=== PATIENT | male | born 1950 | race Caucasian/White ===

== ENCOUNTER 2017-04-30 13:54 | Emergency (ER) | payer MEDICARE ==
[~2017-04-30] VITALS: Ht 172.7 cm; Wt 88.0 kg
[2017-04-30 14:03] VITALS: Ht 172.7 cm; Wt 88.0 kg
[2017-04-30 17:46] LABS: ADD SCAN DIFF NO
[2017-04-30 17:49] LABS: BASOPHILS % 0.1 % (0.0-2.0); HEMATOCRIT 44.1 % (42.0-52.0); HEMOGLOBIN 15.6 g/dl (14.0-18.0); LYMPHOCYTES # 1.2 10^3/ul (0.8-2.9); MEAN CORPUSCULAR HEMOGLOBIN 30.8 pg (29.0-33.0); MEAN CORPUSCULAR HGB CONC 35.4 g/dl (32.0-37.0); MEAN CORPUSCULAR VOLUME 87.2 fl (82.0-101.0); MEAN PLATELET VOLUME 11.8 fl (7.4-10.4); MONOCYTE # 1.3 10^3/ul (0.3-0.9); MONOCYTES % 7.2 % (0.0-11.0); NEUTROPHIL # 14.8 10^3/ul (1.6-7.5); NEUTROPHILS % 84.9 % (39.0-77.0); PLATELET COUNT 109 10^3/UL (140-415); RED BLOOD COUNT 5.06 10^6/ul (4.70-6.10); RED CELL DISTRIBUTION WIDTH 12.5 % (11.5-14.5); WHITE BLOOD COUNT 17.4 10^3/ul (4.8-10.8)
--- NOTE | 2017-04-30 17:58 | RADRPT ---
PROCEDURE: CT brain without contrast CLINICAL INDICATION: Headaches TECHNIQUE: CT of the brain without contrast performed on a multidetector CT scanner, with multiplan ar reformats. One or more of the following dose reduction techniques were used: Automated exposure control, adjustment in mA and / or kV according to patient size, use of iterative reconstructive rubi hnique. CTDIvol = 44 mGy; DLP = 720 mGy-cm. COMPARISON: None available FINDINGS: No acute intracranial hemorrhage is identified. No extra-axial fluid collection is seen. There is no mass effect. No midline shift is identified. Ventricles - sulci are mildly enlarged compatible with generalized volume loss. The density of the brain is unremarkable. Richey-white differentiation is preserved. Atherosclerotic calcifications of the intracranial internal carotid arteries are noted. Osseous structures are unremarkable. There is mild left frontal scalp swelling or thickening with o verlying material noted. Left partial sphenoid sinus opacification is seen. IMPRESSION: 1. No evidence of acute intracranial pathology. 2. Mild generalized volume loss. 3. Mild left frontal scalp swelling/thickening. 4. Paranasal sinus disease described above. RPTAT: AA .Gaston Miller MD, MD Date Time Electronically viewed and signed by .Gaston Miller MD, MD on 04/30/2017 17:58 .O/
[2017-04-30 18:03] LABS: PARTIAL THROMBOPLASTIN TIME 24.1 Sec (25.0-35.0)
--- NOTE | 2017-04-30 18:07 | RADRPT ---
PROCEDURE: CT cervical spine without contrast. CLINICAL INDICATION: Neck pain TECHNIQUE: CT of the cervical spine without contrast was performed on a multidetector CT scanner, w ith multiplanar reformats. One or more of the following dose reduction techniques were used: Automa jonel exposure control, adjustment in mA and / or kV according to patient size, use of iterative recon structive technique. CTDIvol = 20 mGy and DLP = 414 mGy-cm. COMPARISON: None available. FINDINGS: No fracture or dislocation is identified. There is straightening of the lordosis of the cervical sp ine. Alignment is intact. The vertebral bodies are maintained in height. Anterior spondylosis is seen at C4-5 through C6-7. There is disk space narrowing, mild - moderate C5-6, mild at C6-7. Ath erosclerotic calcifications and biapical post granulomatous changes are noted. C2-3: There is a mild posterior disk osteophyte. No central canal stenosis is identified. There i s facet arthropathy without foraminal narrowing identified. C3-4: There is a posterior disk/osteophyte. Mild central canal stenosis is identified. There are u ncovertebral osteophytes and facet arthropathy with moderate to severe right, mild-moderate left for aminal narrowing. C4-5: There is a mild posterior disk osteophyte. No central canal stenosis is identified. There ar e uncovertebral osteophytes and facet arthropathy with mild to moderate bilateral foraminal narrowin gThere are uncovertebral osteophytes and facet arthropathy with moderate to severe right foraminal n arrowing. C5-6: There is a posterior disk/osteophyte. Mild central canal stenosis is identified. There are u ncovertebral osteophytes and facet arthropathy with moderate - severe right foraminal narrowing. C6-7: There is a posterior disk/osteophyte. No central canal stenosis is identified. There are un covertebral osteophytes and facet arthropathy with moderate right, mild-moderate left foraminal narr owing. C7-T1: No central canal stenosis or foraminal narrowing is identified. IMPRESSION: 1. Straightening of the cervical lordosis, without fracture/dislocation identified. 2. Cervical spondylosis with mild central canal stenosis at C3-4 and C5-6, and multilevel foraminal narrowing detailed above. RPTAT: AA .Gaston Miller MD, MD Date Time Electronically viewed and signed by .Gaston Miller MD, on 04/30/2017 18:07 .O/
[2017-04-30 18:10] LABS: ALBUMIN 4.7 g/dl (3.3-4.9); ALBUMIN/GLOBULIN RATIO 1.04; BILIRUBIN,INDIRECT 0.7 mg/dl (0-1.1); BILIRUBIN,TOTAL 0.7 mg/dl (0.2-1.3); CALCIUM 9.5 mg/dl (8.4-10.2); CREATININE 0.84 mg/dl (0.61-1.24); POTASSIUM 4.2 mmol/L (3.5-5.1); TOTAL PROTEIN 9.2 g/dl (6.1-8.1)
[2017-04-30 18:46] VITALS: BP 149/79; PULSE 74; RESP 17
--- NOTE | 2017-04-30 18:49 | RADRPT ---
PROCEDURE: XR Chest. CLINICAL INDICATION: Cough. TECHNIQUE: Single frontal view of the chest was obtained. COMPARISON: No. FINDINGS: The soft tissues are normal. There are degenerative osteophytes in the thoracic spine. The heart, cardiomediastinal silhouette and hilar structures are normal. The pulmonary vasculature is normal. There is a left-sided aorta. The lungs are clear. The costophrenic angles are normal. IMPRESSION: 1. Spondylosis of the thoracic spine with no evidence of active cardiopulmonary disease. RPTAT:AAJJ Physician Joelle Date Time Electronically viewed and signed by Physician Joelle on 04/30/2017 18:48 /
[2017-04-30] MEDS ORDERED: ONDANSETRON 4 MG INJ IV STA (18:52)
[2017-04-30 18:59] LABS: INR 1.06; PROTIME 13.8 Sec (12.2-14.2); PT RATIO 1.1
[2017-04-30] MEDS ORDERED: morphine 2 MG INJ IV ONE (19:00)
[2017-04-30] MEDS ORDERED: HYDR-906 PO (19:20)
[2017-04-30] MEDS ORDERED: ONDANSETRON (ODT) 4 MG TAB ODT STA (19:24)
[2017-04-30] MEDS ORDERED: HYDROCODONE/APAP (10/325) TAB PO ONE (19:30)
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
[2017-05-01] MEDS ORDERED: LOSA50TA6 PO (12:05)
[2017-05-01] MEDS ORDERED: HYD25 PO (12:05)
[2017-05-01] MEDS ORDERED: ASPI-535 PO (12:05)
[2017-05-01] MEDS ORDERED: EMPA10TA PO (12:05)
[2017-05-01] MEDS ORDERED: GABA300C16 PO (12:05)
[2017-05-01] MEDS ORDERED: GLIM2TAB PO (12:05)
[2017-05-01] MEDS ORDERED: SITA1TBM7 PO (12:05)
[2017-05-01] MEDS ORDERED: BENA40TA41 PO (12:05)
[2017-05-01] MEDS ORDERED: ATOR10TA65 PO (12:05)
[2017-05-01] MEDS ORDERED: AMLO-147 PO (12:05)
== END 2017-04-30 19:56 | disposition home or self-care (01) ==
LOC: E/R 13:54
DX: M79.1 Myalgia (principal); D69.6 Thrombocytopenia, unspecified; I10 Essential (primary) hypertension; E11.9 Type 2 diabetes mellitus without complications; R51 Headache
CPT/HCPCS: 36415; 70450; 71010; 72125; 80053; 82962; 83735; 85025; 85610; 85730; 93005

== ENCOUNTER 2017-05-01 08:10 | Inpatient (IN) | payer MEDICARE, OTHER ==
[~2017-05-01] VITALS: Ht 167.6 cm; Wt 70.1 kg
[2017-05-01] VITALS (9 sets, daily range): BP systolic 128–174; BP diastolic 64–89; PULSE 69–90; RESP 18–20; Ht 167.6 cm; Wt 70.1 kg
[~2017-05-01 08:10] MED LIST: HYDR-906 PO
[2017-05-01] MEDS ORDERED: SODIUM CHLORIDE 0.9% 1L BAG IV* STA (08:27)
[2017-05-01] MEDS ORDERED: ACYCLOVIR 500 MG in SOD CHLORIDE 0.9% 100 ML IVPB ONE (08:30)
[2017-05-01] MEDS ORDERED: IBUPROFEN 600 MG TAB PO ONE (08:30)
[2017-05-01] MEDS ORDERED: VANCOMYCIN 1 GM (PMX) 250 ML IVPB SCH (08:30)
[2017-05-01] MEDS ORDERED: CEFTRIAXONE 1 GM/50 ML (PMX) 50 ML IVPB ONE (08:30)
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
--- NOTE | 2017-05-01 09:05 | RADRPT ---
PROCEDURE: XR Chest. CLINICAL INDICATION: Sepsis TECHNIQUE: Chest AP portable COMPARISON: 04/30/2017 FINDINGS: The mediastinal structures are unremarkable. There is calcification of the thoracic aorta (consiste nt with atherosclerosis). The heart is normal in size and configuration. The pulmonary vascularity is normal. There are low lung volumes. There is bibasilar subsegmental atelectasis / patchy conso lidations. The pleural spaces are unremarkable. There are senescent changes of the axial skeleton. IMPRESSION: Calcification of the thoracic aorta (consistent with atherosclerosis). Low lung volumes Bibasilar subsegmental atelectasis / patchy consolidations RPTAT: HGDB .Andrea Benoit MD, Date Time Electronically viewed and signed by .Andrea Benoit MD, on 05/01/2017 09:04 .B/
[2017-05-01 09:16] LABS: ADD SCAN DIFF NO
[2017-05-01 09:21] LABS: BASOPHIL # 0.1 10^3/ul (0.0-0.1); BASOPHILS % 0.2 % (0.0-2.0); HEMATOCRIT 46.7 % (42.0-52.0); HEMOGLOBIN 16.5 g/dl (14.0-18.0); LYMPHOCYTES # 1.2 10^3/ul (0.8-2.9); LYMPHOCYTES % 5.7 % (15.0-51.0); MEAN CORPUSCULAR HEMOGLOBIN 31.1 pg (29.0-33.0); MEAN CORPUSCULAR HGB CONC 35.3 g/dl (32.0-37.0); MEAN CORPUSCULAR VOLUME 88.1 fl (82.0-101.0); MEAN PLATELET VOLUME 10.7 fl (7.4-10.4); MONOCYTES % 4.7 % (0.0-11.0); NEUTROPHIL # 19.2 10^3/ul (1.6-7.5); NEUTROPHILS % 88.6 % (39.0-77.0); PLATELET COUNT 145 10^3/UL (140-415); RED CELL DISTRIBUTION WIDTH 12.6 % (11.5-14.5); WHITE BLOOD COUNT 21.7 10^3/ul (4.8-10.8)
[2017-05-01 09:22] LABS: ADD UMIC YES; UR BILIRUBIN (Dip) NEGATIVE (NEGATIVE); UR BLOOD (Dip) TRACE (NEGATIVE); UR CLARITY CLEAR (CLEAR); UR COLOR LT. YELLOW (YELLOW); UR GLUCOSE (Dip) >=1000 % (NEGATIVE); UR KETONES (Dip) NEGATIVE (NEGATIVE); UR LEUKOCYTE ESTERASE (Dip) NEGATIVE (NEGATIVE); UR NITRITE (Dip) NEGATIVE (NEGATIVE); UR TOTAL PROTEIN (Dip) TRACE (NEGATIVE); UR UROBILINOGEN (Dip) 2.0 E.U./dL (0.1-1.0)
[2017-05-01 09:32] LABS: UR BACTERIA MODERATE
[2017-05-01 09:32] LABS: ALANINE AMINOTRANSFERASE 90 IU/L (13-69); ALBUMIN 4.6 g/dl (3.3-4.9); ALKALINE PHOSPHATASE 157 IU/L (42-121); ANION GAP 18 (8-16); ASPARTATE AMINO TRANSFERASE 59 IU/L (15-46); BILIRUBIN,INDIRECT 1.1 mg/dl (0-1.1); BILIRUBIN,TOTAL 1.1 mg/dl (0.2-1.3); BLOOD UREA NITROGEN 20 mg/dl (7-20); CALCIUM 9.5 mg/dl (8.4-10.2); CARBON DIOXIDE 27 mmol/L (21-31); CHLORIDE 95 mmol/L (97-110); CREATININE 0.85 mg/dl (0.61-1.24); GLUCOSE 217 mg/dl (70-220); POTASSIUM 4.2 mmol/L (3.5-5.1); SODIUM 136 mmol/L (135-144); TOTAL PROTEIN 9.7 g/dl (6.1-8.1)
[2017-05-01] MEDS ORDERED: LIDOCAINE 1% (MDV) 20 ML INJ ONE (09:34)
[2017-05-01 09:44] LABS: TROPONIN-I < 0.012 ng/ml (0.00-0.12)
[2017-05-01 09:53] LABS: INR 1.08; PARTIAL THROMBOPLASTIN TIME 27.7 Sec (25.0-35.0); PT RATIO 1.1
[2017-05-01 09:57] LABS: # OF CELLS COUNTED 100
[2017-05-01] MEDS ORDERED: HYDROmorphONE 1 MG/ML SYG IV STA (10:11)
[2017-05-01] MEDS ORDERED: PIPER-TAZO 3.375 GM IV (PMX) 100 ML IVPB ONE (10:30)
[2017-05-01 10:40] LABS: GLUCOSE,CSF 91 mg/dl (50-80)
--- NOTE | 2017-05-01 11:22 | RADRPT ---
PROCEDURE: CT abdomen and pelvis without contrast. CLINICAL INDICATION: Abdominal pain TECHNIQUE: CT scan of the abdomen and pelvis without contrast was performed and is reconstructed a t 2.5 mm contiguous axial intervals from the dome of the diaphragm to the inferior pubic rami.. The patient was scanned without intravenous contrast. Sagittal and coronal reformatted images were obt ained from the axial source images. The calculated radiation dose measures 668 mGy centimeters. The CTDI measures 11 mGy. COMPARISON: None. FINDINGS: The lung bases are clear of any infiltrate or nodule. No effusion is seen. There is atelectasis at the lung bases. Noted are coronary artery calcifications. Calcified granulomata are present in the lungs. Liver is of normal size and contour. There is fatty infiltration. No masses present. There is no ductal dilatation. Gallbladder is distended. A tiny stone is seen. The mccormick are somewhat indisti nct but no antonio cholecystic phlegmon is seen. No splenic, adrenal or pancreatic abnormalities presen t. Kidneys are of normal size and contour. No hydronephrosis, calculus or masses seen. Ureters are o f normal course and caliber with no stone. No bladder mass or stone is present. Bladder is distende d and there is mass effect on the base of the bladder secondary to an enlarged prostate. The capsul e does appear to be intact. There is no aneurysm. Calcification is seen in the wall of the aorta and iliac arteries. No scar opathy is present. No bowel mass or obstruction is present. Retained barium is seen within a non-inflamed appendix.. No phlegmon, ascites or pneumoperitoneum is visualized. The osseous structures are intact. IMPRESSION: No evidence of urolithiasis, obstructive uropathy, diverticulitis or appendicitis. Distended gallbladder with tiny stone. Somewhat indistinct wall. Question early cholecystitis. Co nsider ultrasound for further evaluation if clinically indicated. Fatty liver. Bibasilar atelectasis. Vascular calcifications. Distended urinary bladder. Mass effect base of bladder secondary to an enlarged prostate. Correlat ion with PSA is suggested. .Oziel Santos MD, MD Date Time Electronically viewed and signed by .Oziel Santos MD, on 05/01/2017 11:21 .A/
[2017-05-01 11:27] LABS: CSF COLOR PINKISH
[2017-05-01 11:28] LABS: CSF#TUBES REC'D 4
[2017-05-01 11:29] LABS: CSF#TUBE COUNT TUBE#1
[2017-05-01 11:42] LABS: CSF COLOR COLORLESS
[2017-05-01 11:43] LABS: CSF#TUBES REC'D 4
[2017-05-01 11:45] LABS: CSF#TUBE COUNT TUBE#4
[2017-05-01] MEDS ORDERED: hydrALAzine 20 MG INJ IV PRN (12:00)
[2017-05-01] MEDS ORDERED: ONDANSETRON 4 MG INJ IV PRN (12:00)
[2017-05-01] MEDS ORDERED: NACL 0.9% 3 ML SYG IV SCH (12:00)
[2017-05-01] MEDS ORDERED: morphine 2 MG INJ IV PRN (12:00)
[2017-05-01] MEDS ORDERED: GLIM2TAB PO (12:05)
[2017-05-01] MEDS ORDERED: EMPA10TA PO (12:05)
[2017-05-01] MEDS ORDERED: BENA40TA41 PO (12:05)
[2017-05-01] MEDS ORDERED: ATOR10TA65 PO (12:05)
[2017-05-01] MEDS ORDERED: LOSA50TA6 PO (12:05)
[2017-05-01] MEDS ORDERED: GABA300C16 PO (12:05)
[2017-05-01] MEDS ORDERED: SITA1TBM7 PO (12:05)
[2017-05-01] MEDS ORDERED: HYD25 PO (12:05)
[2017-05-01] MEDS ORDERED: ASPI-535 PO (12:05)
[2017-05-01] MEDS ORDERED: AMLO-147 PO (12:05)
[2017-05-01] MEDS ORDERED: VANCOMYCIN IV PER PHARMACY XX SCH (12:30)
--- NOTE | 2017-05-01 12:52 | CONS ---
Date/Time of Note Date/Time of Note DATE: 05/01/17 TIME: 12:46 Assessment/Plan Assessment/Plan Chief Complaint/Hosp Course Headache and fever Problems: Additional Assessment/Plan Patient is a 66 years old male who is visiting from [place] was admitted following headaches and fever which he has for about 2 days. He was brought into emergency room where a CT scan of the brain showed mild atrophy, nothing acute. LP was done which showed CSF WBC of 22 and neutrophils of 85%. He was started on Rocephin and vancomycin. Examination shows neck rigidity with pain in neck flexion. He has bacterial meningitis. Plan 1 continue antibiotics 2 MRI of the brain 3 patient should be isolated 4 discussed with patient family who are present in the room 5 we will follow Consultation Date/Type/Reason Admit Date/Time May 01, 2017 at 10:16 Date of Consultation: May 01, 2017 Type of Consultation: Neurology Reason for Consultation Headaches Referring Provider: DEV MARQUES NP Hx of Present Illness Patient is a 66 years old male who is visiting from [place] was admitted following headaches and fever which he has for about 2 days. He was brought into emergency room where a CT scan of the brain showed mild atrophy, nothing acute. LP was done which showed CSF WBC of 22 and neutrophils of 85%. He was started on Rocephin and vancomycin. Constitutional: febrile, other (Headache) Eyes: no complaints ENT: no complaints Respiratory: no complaints Cardiovascular: no complaints Gastrointestinal: no complaints Genitourinary: no complaints Musculoskeletal: no complaints Skin: no complaints Neurologic: headache Endocrine: no complaints Lymphatic: no complaints Psychological: nl mood/affect, no complaints Immunologic: no complaints Past Medical History Medical History: no pertinent history Past Surgical History Past Surgical Hx: no surgical history Family History Significant Family History: no pertinent family hx Social History Alcohol Use: none Smoking Status: Never smoker Exam/Review of Systems Vital Signs Vitals Vital Signs Date Time Temp Pulse Resp B/P Pulse Ox O2 Delivery O2 Flow Rate FiO2 05/01/17 12:09 69 05/01/17 11:18 98.1 19 129/64 93 Room Air Exam Constitutional: alert, oriented, well developed Psych: nl mood/affect, no complaints Head: atraumatic, normocephalic Eyes: EOMI, nl conjunctiva, nl lids, nl sclera ENMT: mucosa pink and moist, nl external ears & nose, nl lips & teeth, nl nasal mucosa & septum Neck: nuchal rigidity Respiratory: clear to auscultation, normal air movement Cardiovascular: nl pulses, regular rate and rhythm Gastrointestinal: nl liver, spleen, non-tender, soft Extremities: normal pulses Neurological: HEARING CARE PRACTITIONER II-XII intact, nl mental status, nl speech, nl strength Skin: nl turgor, rash or lesions Results Result Diagram: 05/01/17 0850 05/01/17 0850 Results 24 hrs Laboratory Tests Test 05/01/17 08:30 05/01/17 08:40 05/01/17 08:50 05/01/17 09:46 Lactic Acid Level 4.2 *H Urine Color LT. YELLOW Urine Clarity CLEAR Urine pH 6.0 Urine Specific [place] 1.010 Urine Ketones NEGATIVE Urine Nitrite NEGATIVE Urine Bilirubin NEGATIVE Urine Urobilinogen 2.0 E.U./dL H Urine Leukocyte Esterase NEGATIVE Urine Microscopic RBC 10-25 Urine Microscopic WBC 5-10 Urine Epithelial Cells MODERATE Urine Bacteria MODERATE Urine Hemoglobin TRACE Urine Glucose >=1000 Urine Total Protein TRACE White Blood Count 21.7 #H Red Blood Count 5.30 Hemoglobin 16.5 Hematocrit 46.7 Mean Corpuscular Volume 88.1 Mean Corpuscular Hemoglobin 31.1 Mean Corpuscular Hemoglobin Concent 35.3 Red Cell Distribution Width 12.6 Platelet Count 145 # Mean Platelet Volume 10.7 H Neutrophils % 88.6 H Lymphocytes % 5.7 L Monocytes % 4.7 Eosinophils % 0.0 Basophils % 0.2 Nucleated Red Blood Cells % 0.0 Neutrophils # 19.2 H Lymphocytes # 1.2 Monocytes # 1.0 H Eosinophils # 0.0 Basophils # 0.1 Nucleated Red Blood Cells # 0.0 Prothrombin Time 14.0 Prothrombin Time Ratio 1.1 INR International Normalized Ratio 1.08 Activated Partial Thromboplast Time 27.7 Sodium Level 136 Potassium Level 4.2 Chloride Level 95 L Carbon Dioxide Level 27 Anion Gap 18 H Blood Urea Nitrogen 20 Creatinine 0.85 Glucose Level 217 Calcium Level 9.5 Total Bilirubin 1.1 Direct Bilirubin 0.00 Indirect Bilirubin 1.1 Aspartate Amino Transf (AST/SGOT) 59 H Alanine Aminotransferase (ALT/SGPT) 90 H Alkaline Phosphatase 157 H Troponin I < 0.012 Total Protein 9.7 H Albumin 4.6 Globulin 5.10 H Albumin/Globulin Ratio 0.90 Lipase 422 H CSF Tubes Submitted 4 CSF Volume 5.0 CSF Appearance HAZY CSF Color PINKISH CSF WBC 22 *H CSF RBC 4000 H CSF Cell Count Tube # TUBE#1 CSF Total Cells Counted 100 CSF Neutrophils % 85 CSF Lymphocytes % 10 CSF Monocytes % 5 CSF Crenated Cells CSF Glucose 91 H CSF Total Protein 27 Test 05/01/17 11:29 05/01/17 12:19 Lactic Acid Level 2.4 H Bedside Glucose 114 Medications Medications Current Medications Morphine Sulfate (morphine) 2 mg Q4H PRN IV Pain Last administered on 05/01/17t 12:25; Admin Dose 2 MG; Start 05/01/17 at 12:00 Hydralazine HCl 10 mg 10 mg Q6H PRN IV SBP>160; Start 05/01/17 at 12:00 Sodium Chloride (NS) 1,000 ml @ 100 mls/hr Q10H IV ; Start 05/01/17 at 11:53 Ondansetron HCl (Zofran Inj) 4 mg Q6H PRN IV NAUSEA AND/OR VOMITING; Start 05/01 at 12:00 Acetaminophen/ Hydrocodone Bitart ([place] (5/325)) 1 tab Q6H PRN PO PAIN LEVEL 4 -6; Start 05/01/17 at 12:00 Famotidine (Pepcid) 20 mg Q12 PO ; Start 05/01/17 at 21:00 Insulin Glargine (Lantus) 14 unit DAILY@20 SC ; Start 05/01/17 at 20:00 Diagnostic Test (Pha) (Accu-Chek) 1 ea 02 XX ; Start 05/02/17 at 02:00 Losartan Potassium (Cozaar) 50 mg DAILY PO ; Start 05/02/17 at 09:00 Atorvastatin Calcium (Lipitor) 10 mg HS PO ; Start 05/01/17 at 21:00 Amlodipine Besylate 10 mg 10 mg DAILY PO ; Start 05/02/17 at 09:00 Cefepime HCl 50 ml @ 100 mls/hr Q12 IVPB ; Start 05/01/17 at 21:00 Vancomycin HCl/ Sodium Chloride (Vancocin/NS) 250 ml @ 83.333 mls/ hr Q12H IVPB ; Start 05/01/17 at 14:00 Miscellaneous Information 1 ea NOTE XX ; Start 05/01/17 at 13:00 Glucose (Glutose) 15 gm Q15M PRN PO DECREASED GLUCOSE; Start 05/01/17 at 13:00 Glucose (Glutose) 22.5 gm Q15M PRN PO DECREASED GLUCOSE; Start 05/01/17 at 13:00 Dextrose (D50w Syringe) 25 ml Q15M PRN IV DECREASED GLUCOSE; Start 05/01/17 at 13:00 Dextrose (D50w Syringe) 50 ml Q15M PRN IV DECREASED GLUCOSE; Start 05/01/17 at 13:00 Glucagon (Glucagen) 1 mg Q15M PRN IM DECREASED GLUCOSE; Start 05/01/17 at 13:00 Glucose (Glutose) 15 gm Q15M PRN BUCCAL DECREASED GLUCOSE; Start 05/01/17 at 13: [address] brain 04/30/2017 IMPRESSION: 1. No evidence of acute intracranial pathology. 2. Mild generalized volume loss. 3. Mild left frontal scalp swelling/thickening. 4. Paranasal sinus disease described above. RPTAT: AA .Gaston Miller MD, MD Date Time Electronically viewed and signed by .Gaston Miller MD, MD on 04/30/2017 17:58 MARIE HADLEY MD May 01, 2017 12:52
[2017-05-01] MEDS ORDERED: GLUCAGON 1 MG INJ IM PRN (13:00)
[2017-05-01] MEDS ORDERED: DEXTROSE 50% 50 ML SYRINGE IV PRN ×2 (13:00)
[2017-05-01] MEDS ORDERED: GLUCOSE GEL 15 GRAM TUBE BUCCAL PRN (13:00)
[2017-05-01] MEDS ORDERED: GLUCOSE GEL 15 GRAM TUBE PO PRN ×2 (13:00)
[2017-05-01] MEDS: INSULIN ASPART [NOVOLOG] 3 ML PEN SC SCH ×4 (13:00→21:00)
[2017-05-01 13:35] LABS: C-REACTIVE PROTEIN 7.9 mg/dl (0.0-0.9)
[2017-05-01 14:32] LABS: THYROID STIMULATING HORMONE 0.826 MIU/L (0.465-4.680)
[2017-05-01] MEDS: SOD CHLORIDE 0.9% 1,000 ML IV SCH ×2 (14:51→20:56)
[2017-05-01] MEDS: VANCOMYCIN 1.25 GM in SOD CHLORIDE 0.9% 250 ML IVPB SCH (14:51)
[2017-05-01] MEDS: morphine 2 MG INJ IV PRN ×3 (15:43→23:20)
[2017-05-01 15:56] LABS: CREATINE KINASE 59 IU/L (23-200)
[2017-05-01 16:13] LABS: CK-MB 0.74 ng/ml (0.0-2.4); TROPONIN-I < 0.012 ng/ml (0.00-0.12)
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
[2017-05-01] MEDS: HYDROCODONE/APAP (5/325) TAB PO PRN (18:20)
[2017-05-01] MEDS: ATORVASTATIN 10 MG TAB PO SCH (21:39)
[2017-05-01] MEDS: FAMOTIDINE 20 MG TAB PO SCH (21:39)
[2017-05-01] MEDS: CEFEPIME 1GM/50 ML (PMX) 50 ML IVPB SCH (21:39)
[2017-05-01] MEDS: ACETAMINOPHEN 325 MG TAB PO PRN (21:39)
[2017-05-01] MEDS: INSULIN GLARGINE [LANtus] 3 ML PEN SC SCH (21:47)
[2017-05-02] VITALS (12 sets, daily range): BP systolic 125–152; BP diastolic 68–78; PULSE 66–85; RESP 17–18
[2017-05-02] MEDS: VANCOMYCIN 1.25 GM in SOD CHLORIDE 0.9% 250 ML IVPB SCH ×2 (01:09→13:30)
[2017-05-02] MEDS: ACCU-CHEK XX SCH (01:12)
[2017-05-02] MEDS: morphine 2 MG INJ IV PRN ×3 (03:10→09:00)
[2017-05-02 07:10] LABS: ADD SCAN DIFF NO
[2017-05-02 07:19] LABS: ABNORMAL IP MESSAGE 1; HEMATOCRIT 41.2 % (42.0-52.0); HEMOGLOBIN 14.4 g/dl (14.0-18.0); MEAN CORPUSCULAR HEMOGLOBIN 31.4 pg (29.0-33.0); MEAN PLATELET VOLUME 11.5 fl (7.4-10.4); RED BLOOD COUNT 4.58 10^6/ul (4.70-6.10); WHITE BLOOD COUNT 22.2 10^3/ul (4.8-10.8)
[2017-05-02 07:30] LABS: CHOL/HDL RATIO 3.6 RATIO; MAGNESIUM 2.1 mg/dl (1.7-2.5); PHOSPHORUS 3.2 mg/dl (2.5-4.9)
[2017-05-02 07:36] LABS: PLATELET COUNT 115 10^3/UL (140-415)
[2017-05-02 07:37] LABS: ALBUMIN 3.7 g/dl (3.3-4.9); ALBUMIN/GLOBULIN RATIO 0.94; CALCIUM 8.2 mg/dl (8.4-10.2); CREATININE 0.82 mg/dl (0.61-1.24); POTASSIUM 4.2 mmol/L (3.5-5.1); TOTAL PROTEIN 7.6 g/dl (6.1-8.1)
[2017-05-02] MEDS: SOD CHLORIDE 0.9% 1,000 ML IV SCH ×2 (07:51→12:21)
[2017-05-02 07:52] LABS: INR 1.23; PROTIME 15.6 Sec (12.2-14.2); PT RATIO 1.2
[2017-05-02] MEDS: HYDROCODONE/APAP (5/325) TAB PO PRN ×3 (07:52→15:05)
[2017-05-02 07:53] LABS: PARTIAL THROMBOPLASTIN TIME 31.1 Sec (25.0-35.0)
[2017-05-02] MEDS: INSULIN ASPART [NOVOLOG] 3 ML PEN SC SCH ×7 (07:55→20:11)
[2017-05-02 08:02] LABS: LYMPHOCYTES # 1.1 10^3/ul (0.8-2.9); MONOCYTE # 0.7 10^3/ul (0.3-0.9); NEUTROPHIL # 19.5 10^3/ul (1.6-7.5)
[2017-05-02 08:06] LABS: PLATELET ESTIMATE PLT APPEAR DECREASED
[2017-05-02] MEDS: FAMOTIDINE 20 MG TAB PO SCH ×2 (09:01→21:22)
[2017-05-02] MEDS: LOSARTAN 50 MG TAB PO SCH (09:01)
[2017-05-02] MEDS: AMLODIPINE 10 MG TAB PO SCH (09:01)
[2017-05-02] MEDS: CEFEPIME 1GM/50 ML (PMX) 50 ML IVPB SCH (09:01)
[2017-05-02] MEDS: ACETAMINOPHEN 325 MG TAB PO PRN ×2 (10:37→18:20)
[2017-05-02] MEDS: morphine 4 MG/ML VIAL IV PRN ×4 (12:21→23:21)
--- NOTE | 2017-05-02 12:34 | PN ---
Date/Time of Note Date/Time of Note DATE: 05/02/17 TIME: 12:34 Assessment/Plan VTE Prophylaxis VTE Prophylaxis Intervention: SCD's Lines/Catheters IV Catheter Type (from Nrs): Peripheral IV Assessment/Plan Chief Complaint/Hosp Course 1. Bacterial meningitis. The patient will be continued on appropriate antibiotics. The patient will be maintained on droplet and contact precautions. Continue antibiotics as per infectious diseases. Status post evaluation by neurology. 2. Sepsis secondary to underlying meningitis along with a gram-positive bacteremia and underlying urinary tract infection. No evidence of septic shock. The patient will be maintained on appropriate antibiotics. 3. Essential hypertension. The patient will be maintained on antihypertensives including p.r.n. antihypertensives for any systolic blood pressure readings greater than 160 mmHg. 4. Dyslipidemia. The patient will be continued on statins. 5. Type 2 diabetes mellitus. The patient will be maintained on sliding scale insulin along with basal insulin and premeal insulin. Hemoglobin A1c 8.7. 6. Leukocytosis. Most probably secondary to #1. Continue antibiotic therapy. 7. Transaminitis. Hepatitis B serology positive. Continue to trend LFTs. Being followed by infectious diseases. 8. Fluids, electrolytes, and nutrition. Carbohydrate controlled diet. 9. DVT prophylaxis. Bilateral sequential compression devices. 10. Gastrointestinal prophylaxis. Histamine 2 receptor blockers. 11. Plan. Continue antibiotics as per infectious diseases. Continue pain control. Case discussed with Dr. Moore. Problems: Subjective 24 Hr Interval Summary Free Text/Dictation Remains afebrile. Complains of headache. Exam/Review of Systems Vital Signs Vitals Vital Signs Date Time Temp Pulse Resp B/P Pulse Ox O2 Delivery O2 Flow Rate FiO2 05/02/17 12:04 79 05/02/17 07:55 98.0 18 152/74 97 05/01/17 11:18 Room Air Intake and Output 05/01/17 05/01/17 05/02/17 15:00 23:00 07:00 Intake Total 700 ml 850 ml Balance 700 ml 850 ml Exam GENERAL: This is a well-built, well-nourished 66-year-old male, lying in bed in no apparent distress. HEENT: Head normocephalic and atraumatic. Eyes: Anicteric sclerae. Conjunctivae clear. ENT: Nasal septum is midline. Oral mucosa is dry. NECK: Supple. JVD noticed. RESPIRATORY: Bilaterally diminished breath sounds. No adventitious breath sounds. No use of accessory muscles of respiration. CARDIAC: Regular rate and rhythm. S1, S2 heard. ABDOMEN: Soft, nontender. No hepatosplenomegaly. Bowel sounds hypoactive in all 4 quadrants. GENITOURINARY: Deferred. EXTREMITIES: No cyanosis, no clubbing, no edema. Peripheral pulses palpable. NEUROLOGIC: The patient is awake, alert and oriented x4. Moves all 4 extremities. No focal weakness. Nuchal rigidity. SKIN: Petechial rashes over the abdomen and chest wall area. Results Result Diagram: 05/02/17 0619 05/02/17 0619 Results 24 hrs Laboratory Tests Test 05/01/17 15:00 05/01/17 17:14 05/01/17 20:27 05/01/17 20:48 Lactic Acid Level 2.4 H 2.6 H Creatine Kinase 59 Creatine Kinase Index 1.3 Creatinine Kinase MB (Mass) 0.74 Troponin I < 0.012 Bedside Glucose 126 125 Test 05/02/17 06:17 05/02/17 06:19 05/02/17 08:22 05/02/17 11:21 Lactic Acid Level 1.9 White Blood Count 22.2 H Red Blood Count 4.58 L Hemoglobin 14.4 Hematocrit 41.2 L Mean Corpuscular Volume 90.0 Mean Corpuscular Hemoglobin 31.4 Mean Corpuscular Hemoglobin Concent 35.0 Red Cell Distribution Width 13.0 Platelet Count 115 #L Mean Platelet Volume 11.5 H Neutrophils % 88.0 H Band Neutrophils % 4.0 Lymphocytes % 5.0 L Monocytes % 3.0 Eosinophils % Neutrophils # 19.5 H Lymphocytes # 1.1 Monocytes # 0.7 Eosinophils # Platelet Estimate PLT APPEAR DECREASED Large Platelets FEW Prothrombin Time 15.6 H Prothrombin Time Ratio 1.2 INR International Normalized Ratio 1.23 Activated Partial Thromboplast Time 31.1 Sodium Level 135 Potassium Level 4.2 Chloride Level 102 Carbon Dioxide Level 27 Anion Gap 10 # Blood Urea Nitrogen 17 Creatinine 0.82 Glucose Level 113 # Calcium Level 8.2 L Phosphorus Level 3.2 Magnesium Level 2.1 Total Bilirubin 1.0 Direct Bilirubin 0.00 Indirect Bilirubin 1.0 Aspartate Amino Transf (AST/SGOT) 46 Alanine Aminotransferase (ALT/SGPT) 61 Alkaline Phosphatase 149 H Total Protein 7.6 # Albumin 3.7 Globulin 3.90 H Albumin/Globulin Ratio 0.94 Triglycerides Level 145 Cholesterol Level 80 L LDL Cholesterol, Calculated 29 HDL Cholesterol 22 L Cholesterol/HDL Ratio 3.6 Bedside Glucose 103 218 Medications Medications Current Medications Hydralazine HCl 10 mg 10 mg Q6H PRN IV SBP>160; Start 05/01/17 at 12:00 Sodium Chloride (NS) 1,000 ml @ 100 mls/hr Q10H IV Last administered on 12:21; Admin Dose 100 MLS/HR; Start 05/01/17 at 11:53 Ondansetron HCl (Zofran Inj) 4 mg Q6H PRN IV NAUSEA AND/OR VOMITING; Start 05/01 at 12:00 Acetaminophen/ Hydrocodone Bitart ([place] (5/325)) 1 tab Q6H PRN PO PAIN LEVEL 4 -6 Last administered on 05/02/17 07:52; Admin Dose 1 TAB; Start 05/01/17 at 12:00 Famotidine (Pepcid) 20 mg Q12 PO Last administered on 05/02/17 09:01; Admin Dose 20 MG; Start 05/01/17 at 21:00 Insulin Glargine (Lantus) 14 unit DAILY@20 SC Last administered on 05/01/17 21: 47; Admin Dose 14 UNIT; Start 05/01/17 at 20:00 Diagnostic Test (Pha) (Accu-Chek) 1 ea 02 XX ; Start 05/02/17 at 02:00 Losartan Potassium (Cozaar) 50 mg DAILY PO Last administered on 05/02/17 09:01 ; Admin Dose 50 MG; Start 05/02/17 at 09:00 Atorvastatin Calcium (Lipitor) 10 mg HS PO Last administered on 05/01/17 21:39 ; Admin Dose 10 MG; Start 05/01/17 at 21:00 Amlodipine Besylate 10 mg 10 mg DAILY PO Last administered on 05/02/17 09:01; Admin Dose 10 MG; Start 05/02/17 at 09:00 Cefepime HCl 50 ml @ 100 mls/hr Q12 IVPB Last administered on 05/02/17 09:01; Admin Dose 100 MLS/HR; Start 05/01/17 at 21:00 Vancomycin HCl/ Sodium Chloride (Vancocin/NS) 250 ml @ 83.333 mls/ hr Q12H IVPB Last administered on 05/02/17 01:09; Admin Dose 83.333 MLS/HR; Start at 14:00 Miscellaneous Information 1 ea NOTE XX ; Start 05/01/17 at 13:00 Glucose (Glutose) 15 gm Q15M PRN PO DECREASED GLUCOSE; Start 05/01/17 at 13:00 Glucose (Glutose) 22.5 gm Q15M PRN PO DECREASED GLUCOSE; Start 05/01/17 at 13:00 Dextrose (D50w Syringe) 25 ml Q15M PRN IV DECREASED GLUCOSE; Start 05/01/17 at 13:00 Dextrose (D50w Syringe) 50 ml Q15M PRN IV DECREASED GLUCOSE; Start 05/01/17 at 13:00 Glucagon (Glucagen) 1 mg Q15M PRN IM DECREASED GLUCOSE; Start 05/01/17 at 13:00 Glucose (Glutose) 15 gm Q15M PRN BUCCAL DECREASED GLUCOSE; Start 05/01/17 at 13: 00 Acetaminophen (Tylenol Tab) 650 mg Q6H PRN PO PAIN AND OR ELEVATED TEMP Last administered on 05/02/17 10:37; Admin Dose 650 MG; Start 05/01/17 at 21:00 Morphine Sulfate (morphine) 3 mg Q3H PRN IV SEVERE PAIN LEVEL 7-10 Last administered on 05/02/17 12:21; Admin Dose 3 MG; Start 05/02/17 at 13:00 DEV MARQUES NP May 02, 2017 12:34
--- NOTE | 2017-05-02 13:43 | CONS ---
Date/Time of Note Date/Time of Note DATE: 05/02/17 TIME: 13:40 Assessment/Plan Assessment/Plan Chief Complaint/Hosp Course Headache and fever Problems: Additional Assessment/Plan Patient is a 66 years old male who is visiting from [place] was admitted following headaches and fever which he has for about 2 days. He was brought into emergency room where a CT scan of the brain showed mild atrophy, nothing acute. LP was done which showed CSF WBC of 22 and neutrophils of 85%. He was started on Rocephin and vancomycin. Examination shows neck rigidity with pain in neck flexion. He has bacterial meningitis. Plan 1 continue antibiotics 2 MRI of the brain 3 discussed with patient family who are present in the room 4 Dr Todd will follow in AM Consultation Date/Type/Reason Admit Date/Time May 01, 2017 at 10:16 Initial Consult Date 05/01/17 Type of Consultation: Neurology Referring Provider: DEV MARQUES NP 24 HR Interval Summary Free Text/Dictation Doing well. Still having headaches and mild fever. Exam/Review of Systems Vital Signs Vitals Vital Signs Date Time Temp Pulse Resp B/P Pulse Ox O2 Delivery O2 Flow Rate FiO2 05/02/17 12:04 79 05/02/17 07:55 98.0 18 152/74 97 05/01/17 11:18 Room Air Intake and Output 05/01/17 05/01/17 05/02/17 15:00 23:00 07:00 Intake Total 700 ml 850 ml Balance 700 ml 850 ml Exam Constitutional: alert, oriented, well developed Psych: nl mood/affect, no complaints Head: atraumatic, normocephalic Eyes: EOMI, nl conjunctiva, nl lids, nl sclera ENMT: mucosa pink and moist, nl external ears & nose, nl lips & teeth, nl nasal mucosa & septum Neck: nuchal rigidity Respiratory: clear to auscultation, normal air movement Cardiovascular: nl pulses, regular rate and rhythm Gastrointestinal: nl liver, spleen, soft Extremities: normal pulses Neurological: PRODUCT SAFETY HEAD II-XII intact, nl mental status, nl speech, nl strength Skin: nl turgor, rash or lesions Lymph: nl lymph nodes Results Result Diagram: 05/02/17 0619 05/02/17 0619 Results 24 hrs Laboratory Tests Test 05/01/17 15:00 05/01/17 17:14 05/01/17 20:27 05/01/17 20:48 Lactic Acid Level 2.4 H 2.6 H Creatine Kinase 59 Creatine Kinase Index 1.3 Creatinine Kinase MB (Mass) 0.74 Troponin I < 0.012 Bedside Glucose 126 125 Test 05/02/17 06:17 05/02/17 06:19 05/02/17 08:22 05/02/17 11:21 Lactic Acid Level 1.9 White Blood Count 22.2 H Red Blood Count 4.58 L Hemoglobin 14.4 Hematocrit 41.2 L Mean Corpuscular Volume 90.0 Mean Corpuscular Hemoglobin 31.4 Mean Corpuscular Hemoglobin Concent 35.0 Red Cell Distribution Width 13.0 Platelet Count 115 #L Mean Platelet Volume 11.5 H Neutrophils % 88.0 H Band Neutrophils % 4.0 Lymphocytes % 5.0 L Monocytes % 3.0 Eosinophils % Neutrophils # 19.5 H Lymphocytes # 1.1 Monocytes # 0.7 Eosinophils # Platelet Estimate PLT APPEAR DECREASED Large Platelets FEW Prothrombin Time 15.6 H Prothrombin Time Ratio 1.2 INR International Normalized Ratio 1.23 Activated Partial Thromboplast Time 31.1 Sodium Level 135 Potassium Level 4.2 Chloride Level 102 Carbon Dioxide Level 27 Anion Gap 10 # Blood Urea Nitrogen 17 Creatinine 0.82 Glucose Level 113 # Calcium Level 8.2 L Phosphorus Level 3.2 Magnesium Level 2.1 Total Bilirubin 1.0 Direct Bilirubin 0.00 Indirect Bilirubin 1.0 Aspartate Amino Transf (AST/SGOT) 46 Alanine Aminotransferase (ALT/SGPT) 61 Alkaline Phosphatase 149 H Total Protein 7.6 # Albumin 3.7 Globulin 3.90 H Albumin/Globulin Ratio 0.94 Triglycerides Level 145 Cholesterol Level 80 L LDL Cholesterol, Calculated 29 HDL Cholesterol 22 L Cholesterol/HDL Ratio 3.6 Bedside Glucose 103 218 Medications Medications Current Medications Hydralazine HCl 10 mg 10 mg Q6H PRN IV SBP>160; Start 05/01/17 at 12:00 Sodium Chloride (NS) 1,000 ml @ 100 mls/hr Q10H IV Last administered on t 12:21; Admin Dose 100 MLS/HR; Start 05/01/17 at 11:53 Ondansetron HCl (Zofran Inj) 4 mg Q6H PRN IV NAUSEA AND/OR VOMITING; Start 05/01 at 12:00 Acetaminophen/ Hydrocodone Bitart ([place] (5/325)) 1 tab Q6H PRN PO PAIN LEVEL 4 -6 Last administered on 05/02/17 07:52; Admin Dose 1 TAB; Start 05/01/17 at 12:00 Famotidine (Pepcid) 20 mg Q12 PO Last administered on 05/02/17 09:01; Admin Dose 20 MG; Start 05/01/17 at 21:00 Insulin Glargine (Lantus) 14 unit DAILY@20 SC Last administered on 05/01/17 21: 47; Admin Dose 14 UNIT; Start 05/01/17 at 20:00 Diagnostic Test (Pha) (Accu-Chek) 1 ea 02 XX ; Start 05/02/17 at 02:00 Losartan Potassium (Cozaar) 50 mg DAILY PO Last administered on 05/02/17 09:01 ; Admin Dose 50 MG; Start 05/02/17 at 09:00 Atorvastatin Calcium (Lipitor) 10 mg HS PO Last administered on 05/01/17 21:39 ; Admin Dose 10 MG; Start 05/01/17 at 21:00 Amlodipine Besylate 10 mg 10 mg DAILY PO Last administered on 05/02/17 09:01; Admin Dose 10 MG; Start 05/02/17 at 09:00 Cefepime HCl 50 ml @ 100 mls/hr Q12 IVPB Last administered on 05/02/17 09:01; Admin Dose 100 MLS/HR; Start 05/01/17 at 21:00 Vancomycin HCl/ Sodium Chloride (Vancocin/NS) 250 ml @ 83.333 mls/ hr Q12H IVPB Last administered on 05/02/17 13:30; Admin Dose 83.333 MLS/HR; Start at 14:00 Miscellaneous Information 1 ea NOTE XX ; Start 05/01/17 at 13:00 Glucose (Glutose) 15 gm Q15M PRN PO DECREASED GLUCOSE; Start 05/01/17 at 13:00 Glucose (Glutose) 22.5 gm Q15M PRN PO DECREASED GLUCOSE; Start 05/01/17 at 13:00 Dextrose (D50w Syringe) 25 ml Q15M PRN IV DECREASED GLUCOSE; Start 05/01/17 at 13:00 Dextrose (D50w Syringe) 50 ml Q15M PRN IV DECREASED GLUCOSE; Start 05/01/17 at 13:00 Glucagon (Glucagen) 1 mg Q15M PRN IM DECREASED GLUCOSE; Start 05/01/17 at 13:00 Glucose (Glutose) 15 gm Q15M PRN BUCCAL DECREASED GLUCOSE; Start 05/01/17 at 13: 00 Acetaminophen (Tylenol Tab) 650 mg Q6H PRN PO PAIN AND OR ELEVATED TEMP Last administered on 05/02/17 10:37; Admin Dose 650 MG; Start 05/01/17 at 21:00 Morphine Sulfate (morphine) 3 mg Q3H PRN IV SEVERE PAIN LEVEL 7-10 Last administered on 05/02/17 12:21; Admin Dose 3 MG; Start 05/02/17 at 13:00 MARIE HADLEY MD May 02, 2017 13:43
[2017-05-02] MEDS: PIPER-TAZO 3.375 GM IV (PMX) 100 ML IVPB SCH ×2 (18:21→23:20)
--- NOTE | 2017-05-02 18:36 | PN ---
DATE: 05/02/2017 SUBJECTIVE: No changes overnight. The patient is awake, lying comfortably in bed. Complaining of fevers. Family at bedside. He is afebrile. LABORATORY DATA: WBC today 22.2 with platelets 115, neutrophils 88, bands 4, lymphs 5, monos 3. BU N 17, creatinine 0.82. MICROBIOLOGY: Urine culture growing Staphylococcus aureus. Blood culture growing staph species. C SF cultures negative day #1. ANTIMICROBIALS: The patient is on IV vancomycin and cefepime. DIAGNOSTICS: CT of the abdomen and pelvis revealed no evidence of urolithiasis, obstructive uropath y, diverticulitis, or appendicitis. Distended gallbladder with tiny stones, question early cholecys titis, bibasilar atelectasis, distended urinary bladder. Chest x-ray on admission revealed patchy c onsolidations. PHYSICAL EXAMINATION: GENERAL: This is a well-nourished, well-developed elderly man who is awake, in no distress. HEENT: Head atraumatic, normocephalic. Sclerae anicteric. Buccal mucosa dry. NECK: Supple. CHEST: Rise symmetrical. Breath sounds clear. HEART: S1, S2. ABDOMEN: Soft, bowel tones present. EXTREMITIES: Without cyanosis. ASSESSMENT: 1. Sepsis with fevers and leukocytosis. 2. Aseptic meningitis. 3. Urinary tract infection with bacteremia. 4. Possible pneumonia. 5. Possible acute cholecystitis, as per CT of the abdomen. PLAN: We will continue the patient on vancomycin. Change cefepime to Zosyn to add anaerobic covera ge. Await for final cultures. Await for MRI of the brain as per neurology recommendations. Consid er gallbladder ultrasound. Continue pain management and supportive care. Dictated By: MEMO AYON KEELER POLYGRAPH OPERATOR for JU DAVILA MD NI/NTS Conf#: [id number] DID#: [id number] CC: RANJAN JOHNSON MD;*EndCC*
[2017-05-02] MEDS: INSULIN GLARGINE [LANtus] 3 ML PEN SC SCH (20:09)
[2017-05-02] MEDS: ATORVASTATIN 10 MG TAB PO SCH (21:22)
[2017-05-02] MEDS: ZOLPIDEM 5 MG TAB PO PRN (21:22)
[2017-05-03] VITALS (13 sets, daily range): BP systolic 128–157; BP diastolic 60–81; PULSE 72–87; RESP 18–20
[2017-05-03] MEDS: ACCU-CHEK XX SCH (02:00)
[2017-05-03] MEDS: VANCOMYCIN 1.25 GM in SOD CHLORIDE 0.9% 250 ML IVPB SCH (02:12)
[2017-05-03] MEDS: SOD CHLORIDE 0.9% 1,000 ML IV SCH ×4 (05:00→22:17)
[2017-05-03] MEDS: PIPER-TAZO 3.375 GM IV (PMX) 100 ML IVPB SCH ×4 (05:03→23:22)
[2017-05-03] MEDS: morphine 4 MG/ML VIAL IV PRN ×2 (06:24→11:47)
[2017-05-03 06:57] LABS: ADD SCAN DIFF NO
--- NOTE | 2017-05-03 07:00 | RADRPT ---
PROCEDURE: MR Brain without contrast. CLINICAL INDICATION: Meningitis TECHNIQUE: Sagittal T1, axial diffusion weighted, FLAIR, and T2, coronal gradient images without c ontrast COMPARISON: 04/30/2017 FINDINGS: No diffusion weighted abnormalities are seen to suggest the presence of acute ischemia or recent inf arct. No hypointense signal abnormalities are seen on the GRE images to suggest the presence of blo od degradation products. There is no evidence of intracranial hemorrhage, mass effect, or midline sh ift. No extra-axial fluid collections are seen. There is minimal cortical atrophy with little perive ntricular white matter increased signal. There is no evidence for intracranial mass. The midline s tructures are normal in appearance. Normal flow voids are visible in the proximal intracranial marcos randall and dural sinuses, indicating patency. The visualized paranasal sinuses are grossly clear. IMPRESSION: Minimal cortical atrophy without significant chronic microvascular ischemic change. No definite are a of focal abnormal signal to suggest cerebritis. Meningeal enhancement cannot be assessed on this noncontrast study. RPTAT: HLBE Physician Renetta Date Time Electronically viewed and signed by Physician Renetta on 05/03/2017 06:59 LE/
[2017-05-03 07:06] LABS: HEMATOCRIT 38.3 % (42.0-52.0); HEMOGLOBIN 13.3 g/dl (14.0-18.0); MEAN CORPUSCULAR HEMOGLOBIN 30.6 pg (29.0-33.0); MEAN CORPUSCULAR HGB CONC 34.7 g/dl (32.0-37.0); MEAN PLATELET VOLUME 11.5 fl (7.4-10.4); PLATELET COUNT 142 10^3/UL (140-415); RED BLOOD COUNT 4.35 10^6/ul (4.70-6.10); RED CELL DISTRIBUTION WIDTH 12.8 % (11.5-14.5); WHITE BLOOD COUNT 18.5 10^3/ul (4.8-10.8)
[2017-05-03 07:23] LABS: ALBUMIN 3.5 g/dl (3.3-4.9); ALBUMIN/GLOBULIN RATIO 0.89; BILIRUBIN,INDIRECT 0.9 mg/dl (0-1.1); BILIRUBIN,TOTAL 0.9 mg/dl (0.2-1.3); CALCIUM 8.3 mg/dl (8.4-10.2); CREATININE 0.78 mg/dl (0.61-1.24); POTASSIUM 3.2 mmol/L (3.5-5.1); TOTAL PROTEIN 7.4 g/dl (6.1-8.1)
[2017-05-03 07:33] LABS: MAGNESIUM 2.2 mg/dl (1.7-2.5); PHOSPHORUS 2.2 mg/dl (2.5-4.9)
[2017-05-03] MEDS: INSULIN ASPART [NOVOLOG] 3 ML PEN SC SCH ×7 (07:55→20:17)
[2017-05-03] MEDS: FAMOTIDINE 20 MG TAB PO SCH ×2 (08:28→20:38)
[2017-05-03] MEDS: HYDROCODONE/APAP (5/325) TAB PO PRN (08:28)
[2017-05-03] MEDS: AMLODIPINE 10 MG TAB PO SCH (08:30)
[2017-05-03] MEDS: LOSARTAN 50 MG TAB PO SCH (08:30)
--- NOTE | 2017-05-03 08:40 | RADRPT ---
PROCEDURE: US Abdomen. CLINICAL INDICATION: abdominal pain TECHNIQUE: Multiple real-time images were acquired of the patient's right upper quadrant abdomen a nd retroperitoneum utilizing a high resolution transducer. COMPARISON: 05/01/17 FINDINGS: The liver demonstrates increased and heterogeneous echogenicity. The liver is normal in size and no focal solid lesions are seen. The liver measures 16 cm in length. The portal vein is patent with no rmal direction of flow. No intrahepatic biliary dilatation is seen. No gallstones are identified within the gallbladder. There is a moderate amount of sludge within the gallbladder. There is no pericholecystic fluid . There is mild gallbladder wall thickening, measur ing 4 mm. The common bile duct measures 6 mm in maximal dimension. There is increased echogenicity of the pancreas. There is no pancreatic ductal dilatation. No free fluid is identified. The right kidney is normal in size, and demonstrate normal echogenicity and cortical thickness. The right kidney measures 12.8 cm in long dimension. There is no evidence of hydronephrosis. There are no kidney stones. RPTAT: AA IMPRESSION: Moderate amount of sludge within the gallbladder with a mildly thickened wall. Fatty infiltration of the liver. .Sreedhar Dunham MD, MD Date Time Electronically viewed and signed by .Sreedhar Dunham MD, on 05/03/2017 08:39 .S/
[2017-05-03] MEDS ORDERED: VANCOMYCIN 1.5 GM in SOD CHLORIDE 0.9% 250 ML IVPB SCH (10:00)
[2017-05-03 11:05] LABS: EOSINOPHILS # 0.4 10^3/ul (0.0-0.5); LYMPHOCYTES # 0.2 10^3/ul (0.8-2.9); MONOCYTE # 0.9 10^3/ul (0.3-0.9); NEUTROPHIL # 11.5 10^3/ul (1.6-7.5)
[2017-05-03] MEDS: DOCUSATE SODIUM 100 MG CAP PO SCH ×2 (11:51→20:41)
[2017-05-03] MEDS: SENNA TAB PO SCH ×2 (11:51→20:38)
--- NOTE | 2017-05-03 13:06 | CONS ---
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 Subjective continues to complain of headaches, neck pain WBC improving, cooperative with family and following commands well Objective Vital Signs Date Time Temp Pulse Resp B/P Pulse Ox O2 Delivery O2 Flow Rate FiO2 05/03/17 12:21 83 05/03/17 11:10 98.9 20 157/81 98 05/02/17 12:00 Room Air Intake and Output 05/02/17 05/02/17 05/03/17 15:00 23:00 07:00 Intake Total 100 ml 2150 ml 750 ml Output Total 100 ml 1000 ml 1000 ml Balance 0 ml 1150 ml -250 ml Exam Constitutional: alert, oriented, well developed Psych: nl mood/affect, no complaints Head: atraumatic, normocephalic Eyes: EOMI, nl conjunctiva, nl lids, nl sclera ENMT: mucosa pink and moist, nl external ears & nose, nl lips & teeth, nl nasal mucosa & septum Neck: nuchal rigidity Respiratory: clear to auscultation, normal air movement Cardiovascular: nl pulses, regular rate and rhythm Gastrointestinal: nl liver, spleen, soft Extremities: normal pulses Neurological: CATALOGUE ILLUSTRATOR II-XII intact, nl mental status, nl speech, nl strength Skin: nl turgor, rash or lesions Lymph: nl lymph nodes Results/Medications Result Diagram: 05/03/17 0610 05/03/17 0610 Results 24 hrs Laboratory Tests Test 05/02/17 17:32 05/02/17 20:02 05/03/17 00:33 05/03/17 06:10 Bedside Glucose 133 179 Vancomycin Level Trough 8.7 L White Blood Count 18.5 H Red Blood Count 4.35 L Hemoglobin 13.3 L Hematocrit 38.3 L Mean Corpuscular Volume 88.0 Mean Corpuscular Hemoglobin 30.6 Mean Corpuscular Hemoglobin Concent 34.7 Red Cell Distribution Width 12.8 Platelet Count 142 # Mean Platelet Volume 11.5 H Neutrophils % 62.0 Band Neutrophils % 30.0 H Lymphocytes % 1.0 L Monocytes % 5.0 Eosinophils % 2.0 Neutrophils # 11.5 H Lymphocytes # 0.2 L Monocytes # 0.9 Eosinophils # 0.4 Sodium Level 136 Potassium Level 3.2 L Chloride Level 102 Carbon Dioxide Level 25 Anion Gap 12 Blood Urea Nitrogen 13 Creatinine 0.78 Glucose Level 83 Calcium Level 8.3 L Phosphorus Level 2.2 #L Magnesium Level 2.2 Total Bilirubin 0.9 Direct Bilirubin 0.00 Indirect Bilirubin 0.9 Aspartate Amino Transf (AST/SGOT) 40 Alanine Aminotransferase (ALT/SGPT) 60 Alkaline Phosphatase 142 H Total Protein 7.4 Albumin 3.5 Globulin 3.90 H Albumin/Globulin Ratio 0.89 Test 05/03/17 08:20 05/03/17 11:54 Bedside Glucose 115 191 Medications Current Medications Hydralazine HCl 10 mg 10 mg Q6H PRN IV SBP>160; Start 05/01/17 at 12:00 Sodium Chloride (NS) 1,000 ml @ 100 mls/hr Q10H IV Last administered on 12:21; Admin Dose 100 MLS/HR; Start 05/01/17 at 11:53 Ondansetron HCl (Zofran Inj) 4 mg Q6H PRN IV NAUSEA AND/OR VOMITING; Start 05/01 at 12:00 Acetaminophen/ Hydrocodone Bitart ([place] (5/325)) 1 tab Q6H PRN PO PAIN LEVEL 4 -6 Last administered on 05/03/17 08:28; Admin Dose 1 TAB; Start 05/01/17 at 12:00 Famotidine (Pepcid) 20 mg Q12 PO Last administered on 05/03/17 08:28; Admin Dose 20 MG; Start 05/01/17 at 21:00 Insulin Glargine (Lantus) 14 unit DAILY@20 SC Last administered on 05/02/17 20: 09; Admin Dose 14 UNIT; Start 05/01/17 at 20:00 Diagnostic Test (Pha) (Accu-Chek) 1 ea 02 XX ; Start 05/02/17 at 02:00 Losartan Potassium (Cozaar) 50 mg DAILY PO Last administered on 05/03/17 08:30 ; Admin Dose 50 MG; Start 05/02/17 at 09:00 Atorvastatin Calcium (Lipitor) 10 mg HS PO Last administered on 05/02/17 21:22 ; Admin Dose 10 MG; Start 05/01/17 at 21:00 Amlodipine Besylate (Norvasc) 10 mg DAILY PO Last administered on 05/03/17 08: 30; Admin Dose 10 MG; Start 05/02/17 at 09:00 Miscellaneous Information 1 ea NOTE XX ; Start 05/01/17 at 13:00 Glucose (Glutose) 15 gm Q15M PRN PO DECREASED GLUCOSE; Start 05/01/17 at 13:00 Glucose (Glutose) 22.5 gm Q15M PRN PO DECREASED GLUCOSE; Start 05/01/17 at 13:00 Dextrose (D50w Syringe) 25 ml Q15M PRN IV DECREASED GLUCOSE; Start 05/01/17 at 13:00 Dextrose (D50w Syringe) 50 ml Q15M PRN IV DECREASED GLUCOSE; Start 05/01/17 at 13:00 Glucagon (Glucagen) 1 mg Q15M PRN IM DECREASED GLUCOSE; Start 05/01/17 at 13:00 Glucose (Glutose) 15 gm Q15M PRN BUCCAL DECREASED GLUCOSE; Start 05/01/17 at 13: 00 Acetaminophen (Tylenol Tab) 650 mg Q6H PRN PO PAIN AND OR ELEVATED TEMP Last administered on 05/02/17 18:20; Admin Dose 650 MG; Start 05/01/17 at 21:00 Morphine Sulfate 3 mg 3 mg Q3H PRN IV SEVERE PAIN LEVEL 7-10 Last administered on 05/03/17 11:47; Admin Dose 3 MG; Start 05/02/17 at 13:00 Piperacillin Sod/ Tazobactam Sod (Zosyn 3.375gm/ 100 ml (Pmx)) 100 ml @ 200 mls /hr Q6 IVPB Last administered on 05/03/17 05:03; Admin Dose 200 MLS/HR; Start 05/02/17 at 18:00 Zolpidem Tartrate (Ambien) 5 mg HS PRN PO INSOMNIA Last administered on 21:22; Admin Dose 5 MG; Start 05/02/17 at 18:00 Docusate Sodium (Colace) 100 mg BID PO Last administered on 05/03/17 11:51; Admin Dose 100 MG; Start 05/03/17 at 11:00 Senna 1 tab 1 tab BID PO Last administered on 05/03/17 11:51; Admin Dose 1 TAB ; Start 05/03/17 at 11:00 Vancomycin HCl/ Sodium Chloride (Vancocin/NS) 250 ml @ 83.333 mls/ hr Q12H IVPB ; Start 05/04/17 at 00:00 Assessment/Plan Chief Complaint/Hosp Course Patient is a 66 years old male who is visiting from [place] was admitted following headaches and fever which he has for about 2 days. He was brought into emergency room where a CT scan of the brain showed mild atrophy, nothing acute. LP was done which showed CSF WBC of 22 and neutrophils of 85%. He was started on Rocephin and vancomycin. Examination shows neck rigidity with pain in neck flexion. He has bacterial meningitis. MRI Brain shows atrophy, no other acute changes, was done without contrast. Plan continue antibiotics, continue supportive care discussed results of MRI with family advised them symptoms expected to improve after full course of antibiotics will reconsult as needed Problems: JAMSHID SEGURA MD May 03, 2017 13:06
--- NOTE | 2017-05-03 13:59 | RADRPT ---
PROCEDURE: US Lower extremity Venous. CLINICAL INDICATION: Left leg edema TECHNIQUE: Multiple sonographic images of the left lower extremity deep venous system was obtained utilizing grayscale, color-flow, compressive sonography and doppler imaging with augmentation. The images were reviewed on a PACS workstation. COMPARISON: None. FINDINGS: There is normal compressibility and flow within the left common femoral, femoral, posterior tibial, peroneal and popliteal veins. RPTAT: AA IMPRESSION: No sonographic evidence for deep venous thrombosis. .Sreedhar Dunham MD, MD Date Time Electronically viewed and signed by .Sreedhar Dunham MD, on 05/03/2017 13:58 .S/
[2017-05-03] MEDS ORDERED: KETOROLAC 15 MG INJ IV PRN (14:00)
[2017-05-03] MEDS: KETOROLAC 15 MG INJ IV PRN ×2 (14:06→22:20)
--- NOTE | 2017-05-03 14:46 | PN ---
DATE: 05/03/2017 INFECTIOUS DISEASE PROGRESS NOTE SUBJECTIVE: The patient is lying comfortably in bed, family at bedside. He is afebrile. He has so me pleuritic chest pain. LABORATORY DATA: WBC today decreased to 18.5, H and H 13.3 and 38.3, platelets 142, neutrophils 62, bands 30, lymphs 1, monos 5. BUN 13, creatinine 0.78. MICROBIOLOGY: Blood culture and urine culture growing Staphylococcus aureus, oxacillin sensitive. Cerebrospinal fluid cultures came back negative. Influenza swab also negative. DIAGNOSTICS: The patient had a gallbladder ultrasound that revealed moderate amount of sludge withi n the gallbladder with a mildly thickened wall and fatty infiltration of the liver. MRI of the brai n was negative. ANTIMICROBIALS: The patient remains on: 1. IV vancomycin. 2. Zosyn. PHYSICAL EXAMINATION: GENERAL: This is a well-developed, elderly man who is alert, in no distress. HEENT: Head atraumatic, normocephalic. Sclerae anicteric. Buccal mucosa pink. NECK: Supple, trachea midline. CHEST: Rise symmetrical. Breath sounds clear, diminished to bases. HEART: S1, S2. ABDOMEN: Soft, bowel sounds present. EXTREMITIES: Without cyanosis. ASSESSMENT: 1. Sepsis, resolving. 2. Oxacillin-sensitive Staphylococcus aureus urinary tract infection with bacteremia. 3. Questionable cholecystitis. 4. Viral meningitis. 5. Possible pneumonia as per chest x-ray on admission. PLAN: The patient remains stable. We are going to repeat chest x-ray. Consider HIDA scan. Contin ue Zosyn and discontinue vancomycin. Follow recommendations of consultants. Dictated By: MEMO AYON JUVENILE COUNSELOR for JU MENA/MEETA Conf#: [id number] DID#: [id number]
--- NOTE | 2017-05-03 16:22 | PN ---
Date/Time of Note Date/Time of Note DATE: 05/03/17 TIME: 16:15 Assessment/Plan VTE Prophylaxis VTE Prophylaxis Intervention: SCD's Lines/Catheters IV Catheter Type (from Nrsg): Peripheral IV Assessment/Plan Chief Complaint/Hosp Course Assessment and plan 1. Viral meningitis. cont on abx. . Analgesics as needed. 2. Sepsis secondary to #1. No evidence of shock. on ABX. antipyretics for fever. 3. Essential hypertension. Continue antihypertensives and adjust as needed 4. Dyslipidemia. Continue statin medication. Stable at present. 5. Diabetes. A1c at 8.7. Continue insulin regimen. Stable at present. Will adjust as needed. 6. Hepatitis B serology positive. Continue with ID recommendations. DVT prophylaxis: SCDs GERD prophylaxis: H2 devang Disposition and plan: Continue antibiotics. Await for clinical improvement. Follow-up with neurologist Recommendations. toradol added for pain management Discussed plan of care with Dr. Donnelly Problems: Subjective 24 Hr Interval Summary Free Text/Dictation no s/s of distress. Exam/Review of Systems Vital Signs Vitals Vital Signs Date Time Temp Pulse Resp B/P Pulse Ox O2 Delivery O2 Flow Rate FiO2 05/03/17 16:09 74 05/03/17 16:08 98.2 20 128/77 96 05/03/17 08:00 Nasal Cannula 2.0 Intake and Output 05/02/17 05/02/17 05/03/17 15:00 23:00 07:00 Intake Total 100 ml 2150 ml 750 ml Output Total 100 ml 1000 ml 1000 ml Balance 0 ml 1150 ml -250 ml Exam Constitutional: alert, oriented Psych: nl mood/affect Head: normocephalic Neck: supple, No jvd Respiratory: clear to auscultation, normal air movement Cardiovascular: regular rate and rhythm Gastrointestinal: non-tender, soft Neurological: SURGERY AIDE II-XII intact, nl mental status, nl speech Skin: nl turgor Results Result Diagram: 05/03/17 0610 05/03/17 0610 Results 24 hrs Laboratory Tests Test 05/02/17 17:32 05/02/17 20:02 05/03/17 00:33 05/03/17 06:10 Bedside Glucose 133 179 Vancomycin Level Trough 8.7 L White Blood Count 18.5 H Red Blood Count 4.35 L Hemoglobin 13.3 L Hematocrit 38.3 L Mean Corpuscular Volume 88.0 Mean Corpuscular Hemoglobin 30.6 Mean Corpuscular Hemoglobin Concent 34.7 Red Cell Distribution Width 12.8 Platelet Count 142 # Mean Platelet Volume 11.5 H Neutrophils % 62.0 Band Neutrophils % 30.0 H Lymphocytes % 1.0 L Monocytes % 5.0 Eosinophils % 2.0 Neutrophils # 11.5 H Lymphocytes # 0.2 L Monocytes # 0.9 Eosinophils # 0.4 Sodium Level 136 Potassium Level 3.2 L Chloride Level 102 Carbon Dioxide Level 25 Anion Gap 12 Blood Urea Nitrogen 13 Creatinine 0.78 Glucose Level 83 Calcium Level 8.3 L Phosphorus Level 2.2 #L Magnesium Level 2.2 Total Bilirubin 0.9 Direct Bilirubin 0.00 Indirect Bilirubin 0.9 Aspartate Amino Transf (AST/SGOT) 40 Alanine Aminotransferase (ALT/SGPT) 60 Alkaline Phosphatase 142 H Total Protein 7.4 Albumin 3.5 Globulin 3.90 H Albumin/Globulin Ratio 0.89 Test 05/03/17 08:20 05/03/17 11:54 Bedside Glucose 115 191 Medications Medications Current Medications Hydralazine HCl 10 mg 10 mg Q6H PRN IV SBP>160; Start 05/01/17 at 12:00 Sodium Chloride (NS) 1,000 ml @ 100 mls/hr Q10H IV Last administered on 12:21; Admin Dose 100 MLS/HR; Start 05/01/17 at 11:53 Ondansetron HCl (Zofran Inj) 4 mg Q6H PRN IV NAUSEA AND/OR VOMITING; Start 05/01 at 12:00 Acetaminophen/ Hydrocodone Bitart ([place] (5/325)) 1 tab Q6H PRN PO PAIN LEVEL 4 -6 Last administered on 05/03/17 08:28; Admin Dose 1 TAB; Start 05/01/17 at 12:00 Famotidine (Pepcid) 20 mg Q12 PO Last administered on 05/03/17 08:28; Admin Dose 20 MG; Start 05/01/17 at 21:00 Insulin Glargine (Lantus) 14 unit DAILY@20 SC Last administered on 05/02/17 20: 09; Admin Dose 14 UNIT; Start 05/01/17 at 20:00 Diagnostic Test (Pha) (Accu-Chek) 1 ea 02 XX ; Start 05/02/17 at 02:00 Losartan Potassium (Cozaar) 50 mg DAILY PO Last administered on 05/03/17 08:30 ; Admin Dose 50 MG; Start 05/02/17 at 09:00 Atorvastatin Calcium (Lipitor) 10 mg HS PO Last administered on 05/02/17 21:22 ; Admin Dose 10 MG; Start 05/01/17 at 21:00 Amlodipine Besylate (Norvasc) 10 mg DAILY PO Last administered on 05/03/17 08: 30; Admin Dose 10 MG; Start 05/02/17 at 09:00 Miscellaneous Information 1 ea NOTE XX ; Start 05/01/17 at 13:00 Glucose (Glutose) 15 gm Q15M PRN PO DECREASED GLUCOSE; Start 05/01/17 at 13:00 Glucose (Glutose) 22.5 gm Q15M PRN PO DECREASED GLUCOSE; Start 05/01/17 at 13:00 Dextrose (D50w Syringe) 25 ml Q15M PRN IV DECREASED GLUCOSE; Start 05/01/17 at 13:00 Dextrose (D50w Syringe) 50 ml Q15M PRN IV DECREASED GLUCOSE; Start 05/01/17 at 13:00 Glucagon (Glucagen) 1 mg Q15M PRN IM DECREASED GLUCOSE; Start 05/01/17 at 13:00 Glucose (Glutose) 15 gm Q15M PRN BUCCAL DECREASED GLUCOSE; Start 05/01/17 at 13: 00 Acetaminophen (Tylenol Tab) 650 mg Q6H PRN PO PAIN AND OR ELEVATED TEMP Last administered on 05/02/17 18:20; Admin Dose 650 MG; Start 05/01/17 at 21:00 Morphine Sulfate 3 mg 3 mg Q3H PRN IV SEVERE PAIN LEVEL 7-10 Last administered on 05/03/17 11:47; Admin Dose 3 MG; Start 05/02/17 at 13:00 Piperacillin Sod/ Tazobactam Sod (Zosyn 3.375gm/ 100 ml (Pmx)) 100 ml @ 200 mls /hr Q6 IVPB Last administered on 05/03/17 14:06; Admin Dose 200 MLS/HR; Start 05/02/17 at 18:00 Zolpidem Tartrate (Ambien) 5 mg HS PRN PO INSOMNIA Last administered on 21:22; Admin Dose 5 MG; Start 05/02/17 at 18:00 Docusate Sodium (Colace) 100 mg BID PO Last administered on 05/03/17 11:51; Admin Dose 100 MG; Start 05/03/17 at 11:00 Senna (Senokot) 1 tab BID PO Last administered on 05/03/17 11:51; Admin Dose 1 TAB; Start 05/03/17 at 11:00 Ketorolac Tromethamine (Toradol) 15 mg Q6H PRN IV PAIN Last administered on 05/03 14:06; Admin Dose 15 MG; Start 05/03/17 at 14:00; Stop 05/06/17 at 13:59 JEN ELIZABETH May 03, 2017 16:22
--- NOTE | 2017-05-03 16:29 | RADRPT ---
PROCEDURE: XR Chest. CLINICAL INDICATION: r/o pna TECHNIQUE: Single frontal view of the chest was obtained. COMPARISON: Chest x-ray from 05/01/2017 FINDINGS: There is a patchy opacity measuring 3.6 x 3.5 cm in the lateral aspect of the right mid lung which i s more prominent than it was on the prior chest x-ray from 05/01/2017 and is likely a consolidation due to pneumonia. There is subsegmental right basilar atelectasis. There is mild cardiomegaly. The aortic arch is calcified. There is no significant pleural effusion or pneumothorax. There are mild degenerative changes in the thoracic spine including small anterior osteophytes IMPRESSION: Enlarging right mid lung consolidation, likely due to pneumonia. Subsegmental right basilar atelectasis. Stable mild cardiomegaly. Aortic atherosclerosis. RPTAT: EE Physician Festus Date Time Electronically viewed and signed by Physician Festus on 05/03/2017 16:29 /
[2017-05-03] MEDS: INSULIN GLARGINE [LANtus] 3 ML PEN SC SCH (20:29)
[2017-05-03] MEDS: ZOLPIDEM 5 MG TAB PO PRN (20:38)
[2017-05-03] MEDS: ATORVASTATIN 10 MG TAB PO SCH (20:38)
[2017-05-04] VITALS (11 sets, daily range): BP systolic 128–154; BP diastolic 14–75; PULSE 63–72; RESP 18–20
[2017-05-04] MEDS ORDERED: VANCOMYCIN 1.5 GM in SOD CHLORIDE 0.9% 250 ML IVPB SCH ×2
[2017-05-04] MEDS: ACCU-CHEK XX SCH (02:00)
[2017-05-04] MEDS: KETOROLAC 15 MG INJ IV PRN ×4 (02:59→23:38)
[2017-05-04] MEDS: PIPER-TAZO 3.375 GM IV (PMX) 100 ML IVPB SCH ×3 (05:26→17:54)
[2017-05-04] MEDS: INSULIN ASPART [NOVOLOG] 3 ML PEN SC SCH ×7 (07:55→23:27)
[2017-05-04] MEDS: LOSARTAN 50 MG TAB PO SCH (09:34)
[2017-05-04] MEDS: SENNA TAB PO SCH ×2 (09:34→23:21)
[2017-05-04] MEDS: DOCUSATE SODIUM 100 MG CAP PO SCH ×2 (09:34→23:21)
[2017-05-04] MEDS: FAMOTIDINE 20 MG TAB PO SCH ×2 (09:34→23:21)
[2017-05-04] MEDS: AMLODIPINE 10 MG TAB PO SCH (09:34)
[2017-05-04] MEDS ORDERED: LEVOFLOXACIN 500 MG TAB PO ONE (12:00)
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
[2017-05-04] MEDS: SOD CHLORIDE 0.9% 1,000 ML IV SCH (15:44)
--- NOTE | 2017-05-04 15:47 | PN ---
Date/Time of Note Date/Time of Note DATE: 05/04/17 TIME: 15:43 Assessment/Plan VTE Prophylaxis VTE Prophylaxis Intervention: SCD's Lines/Catheters IV Catheter Type (from Nrsg): Peripheral IV Assessment/Plan Chief Complaint/Hosp Course Assessment and plan 1. Reported viral meningitis. Continue antibiotics. Analgesics as needed. 2. Sepsis secondary to #1. No evidence of shock. on ABX. antipyretics for fever. 3. Essential hypertension. Continue antihypertensives and adjust as needed 4. Dyslipidemia. Continue statin medication. Stable at present. 5. Diabetes. A1c at 8.7. Continue insulin regimen. Stable at present. Will adjust as needed. 6. Hepatitis B serology positive. Continue with ID recommendations. 7. Pneumonia. Box Bender consulted. Follow-up on CT scan of the chest. On antibiotics per ID DVT prophylaxis: SCDs GERD prophylaxis: H2 devang Disposition and plan: Continue antibiotics. Follow-up CT scan of the chest Discussed plan of care with Dr. Donnelly Problems: Subjective 24 Hr Interval Summary Free Text/Dictation Comfortable at present. Reports less pain on the neck Exam/Review of Systems Vital Signs Vitals Vital Signs Date Time Temp Pulse Resp B/P Pulse Ox O2 Delivery O2 Flow Rate FiO2 05/04/17 12:09 98.4 72 20 128/72 98 05/04/17 07:33 Nasal Cannula 2.0 Intake and Output 05/03/17 05/03/17 05/04/17 15:00 23:00 07:00 Intake Total 1100 ml Balance 1100 ml Exam Constitutional: alert, oriented Psych: nl mood/affect Head: normocephalic Neck: supple, No jvd Respiratory: other (Minimally diminished bilateral lung pozo) Cardiovascular: other (Regular rate) Gastrointestinal: non-tender, soft Musculoskeletal: nl extremities to inspection, nl gait and stance Extremities: normal pulses 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, nl mental status, nl speech Results Result Diagram: 05/03/17 0610 05/03/17 0610 Results 24 hrs Laboratory Tests Test 05/03/17 17:18 05/03/17 20:15 05/04/17 08:25 05/04/17 12:17 Bedside Glucose 163 162 85 151 Medications Medications Current Medications Hydralazine HCl 10 mg 10 mg Q6H PRN IV SBP>160; Start 05/01/17 at 12:00 Sodium Chloride (NS) 1,000 ml @ 100 mls/hr Q10H IV Last administered on 22:17; Admin Dose 100 MLS/HR; Start 05/01/17 at 11:53 Ondansetron HCl (Zofran Inj) 4 mg Q6H PRN IV NAUSEA AND/OR VOMITING; Start 05/01 at 12:00 Acetaminophen/ Hydrocodone Bitart ([place] (5/325)) 1 tab Q6H PRN PO PAIN LEVEL 4 -6 Last administered on 05/03/17 08:28; Admin Dose 1 TAB; Start 05/01/17 at 12:00 Famotidine (Pepcid) 20 mg Q12 PO Last administered on 05/04/17 09:34; Admin Dose 20 MG; Start 05/01/17 at 21:00 Insulin Glargine (Lantus) 14 unit DAILY@20 SC Last administered on 05/03/17 20: 29; Admin Dose 14 UNIT; Start 05/01/17 at 20:00 Diagnostic Test (Pha) (Accu-Chek) 1 ea 02 XX ; Start 05/02/17 at 02:00 Losartan Potassium (Cozaar) 50 mg DAILY PO Last administered on 05/04/17 09:34 ; Admin Dose 50 MG; Start 05/02/17 at 09:00 Atorvastatin Calcium (Lipitor) 10 mg HS PO Last administered on 05/03/17 20:38 ; Admin Dose 10 MG; Start 05/01/17 at 21:00 Amlodipine Besylate (Norvasc) 10 mg DAILY PO Last administered on 05/04/17 09: 34; Admin Dose 10 MG; Start 05/02/17 at 09:00 Miscellaneous Information 1 ea NOTE XX ; Start 05/01/17 at 13:00 Glucose (Glutose) 15 gm Q15M PRN PO DECREASED GLUCOSE; Start 05/01/17 at 13:00 Glucose (Glutose) 22.5 gm Q15M PRN PO DECREASED GLUCOSE; Start 05/01/17 at 13:00 Dextrose (D50w Syringe) 25 ml Q15M PRN IV DECREASED GLUCOSE; Start 05/01/17 at 13:00 Dextrose (D50w Syringe) 50 ml Q15M PRN IV DECREASED GLUCOSE; Start 05/01/17 at 13:00 Glucagon (Glucagen) 1 mg Q15M PRN IM DECREASED GLUCOSE; Start 05/01/17 at 13:00 Glucose (Glutose) 15 gm Q15M PRN BUCCAL DECREASED GLUCOSE; Start 05/01/17 at 13: 00 Acetaminophen (Tylenol Tab) 650 mg Q6H PRN PO PAIN AND OR ELEVATED TEMP Last administered on 05/02/17 18:20; Admin Dose 650 MG; Start 05/01/17 at 21:00 Morphine Sulfate 3 mg 3 mg Q3H PRN IV SEVERE PAIN LEVEL 7-10 Last administered on 05/03/17 11:47; Admin Dose 3 MG; Start 05/02/17 at 13:00 Piperacillin Sod/ Tazobactam Sod (Zosyn 3.375gm/ 100 ml (Pmx)) 100 ml @ 200 mls /hr Q6 IVPB Last administered on 05/04/17 12:19; Admin Dose 200 MLS/HR; Start 05/02/17 at 18:00 Zolpidem Tartrate (Ambien) 5 mg HS PRN PO INSOMNIA Last administered on 20:38; Admin Dose 5 MG; Start 05/02/17 at 18:00 Docusate Sodium (Colace) 100 mg BID PO Last administered on 05/04/17 09:34; Admin Dose 100 MG; Start 05/03/17 at 11:00 Senna (Senokot) 1 tab BID PO Last administered on 05/04/17 09:34; Admin Dose 1 TAB; Start 05/03/17 at 11:00 Ketorolac Tromethamine (Toradol) 15 mg Q6H PRN IV PAIN Last administered on 05/04 09:31; Admin Dose 15 MG; Start 05/03/17 at 14:00; Stop 05/06/17 at 13:59 Levofloxacin (Levaquin) 500 mg DAILY@06 PO ; Start 05/05/17 at 06:00 JEN ELIZABETH May 04, 2017 15:47
[2017-05-04] MEDS: HYDROCODONE/APAP (5/325) TAB PO PRN (17:53)
--- NOTE | 2017-05-04 21:23 | CONS ---
Date/Time of Note Date/Time of Note DATE: 05/04/17 TIME: 21:20 Assessment/Plan Assessment/Plan Chief Complaint/Hosp Course SUBJECTIVE: Alert, feels better, no fevers, no headaches, family at bedside. MICROBIOLOGY: Blood culture and urine culture growing Staphylococcus aureus, oxacillin sensitive. Cerebrospinal fluid cultures came back negative. Influenza swab also negative. ANTIMICROBIALS: 1. Levaquin. 2. Zosyn. PHYSICAL EXAMINATION: GENERAL: This is a well-developed, elderly man who is alert, in no distress. HEENT: Head atraumatic, normocephalic. Sclerae anicteric. Buccal mucosa pink. NECK: Supple, trachea midline. CHEST: Rise symmetrical. Breath sounds clear, diminished to bases. HEART: S1, S2. ABDOMEN: Soft, bowel sounds present. EXTREMITIES: Without cyanosis. ASSESSMENT: 1. Sepsis, resolving. 2. Oxacillin-sensitive Staphylococcus aureus urinary tract infection with bacteremia. 3. Questionable cholecystitis. 4. Viral meningitis. 5. 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 Exam/Review of Systems Vital Signs Vitals Vital Signs Date Time Temp Pulse Resp B/P Pulse Ox O2 Delivery O2 Flow Rate FiO2 05/04/17 20:05 68 05/04/17 19:34 98.0 18 147/75 95 05/04/17 07:33 Nasal Cannula 2.0 Intake and Output 05/03/17 05/03/17 05/04/17 15:00 23:00 07:00 Intake Total 1100 ml Balance 1100 ml Results Result Diagram: 05/03/17 0610 05/03/17 0610 Results 24 hrs Laboratory Tests Test 05/04/17 08:25 05/04/17 12:17 05/04/17 17:50 Bedside Glucose 85 151 124 Medications Medications Current Medications Hydralazine HCl 10 mg 10 mg Q6H PRN IV SBP>160; Start 05/01/17 at 12:00 Sodium Chloride (NS) 1,000 ml @ 100 mls/hr Q10H IV Last administered on t 15:44; Admin Dose 100 MLS/HR; Start 05/01/17 at 11:53 Ondansetron HCl (Zofran Inj) 4 mg Q6H PRN IV NAUSEA AND/OR VOMITING; Start 05/01 at 12:00 Acetaminophen/ Hydrocodone Bitart ([place] (5/325)) 1 tab Q6H PRN PO PAIN LEVEL 4 -6 Last administered on 05/04/17 17:53; Admin Dose 1 TAB; Start 05/01/17 at 12:00 Famotidine (Pepcid) 20 mg Q12 PO Last administered on 05/04/17 09:34; Admin Dose 20 MG; Start 05/01/17 at 21:00 Insulin Glargine (Lantus) 14 unit DAILY@20 SC Last administered on 05/03/17 20: 29; Admin Dose 14 UNIT; Start 05/01/17 at 20:00 Diagnostic Test (Pha) (Accu-Chek) 1 ea 02 XX ; Start 05/02/17 at 02:00 Losartan Potassium (Cozaar) 50 mg DAILY PO Last administered on 05/04/17 09:34 ; Admin Dose 50 MG; Start 05/02/17 at 09:00 Atorvastatin Calcium (Lipitor) 10 mg HS PO Last administered on 05/03/17 20:38 ; Admin Dose 10 MG; Start 05/01/17 at 21:00 Amlodipine Besylate (Norvasc) 10 mg DAILY PO Last administered on 05/04/17 09: 34; Admin Dose 10 MG; Start 05/02/17 at 09:00 Miscellaneous Information 1 ea NOTE XX ; Start 05/01/17 at 13:00 Glucose (Glutose) 15 gm Q15M PRN PO DECREASED GLUCOSE; Start 05/01/17 at 13:00 Glucose (Glutose) 22.5 gm Q15M PRN PO DECREASED GLUCOSE; Start 05/01/17 at 13:00 Dextrose (D50w Syringe) 25 ml Q15M PRN IV DECREASED GLUCOSE; Start 05/01/17 at 13:00 Dextrose (D50w Syringe) 50 ml Q15M PRN IV DECREASED GLUCOSE; Start 05/01/17 at 13:00 Glucagon (Glucagen) 1 mg Q15M PRN IM DECREASED GLUCOSE; Start 05/01/17 at 13:00 Glucose (Glutose) 15 gm Q15M PRN BUCCAL DECREASED GLUCOSE; Start 05/01/17 at 13: 00 Acetaminophen (Tylenol Tab) 650 mg Q6H PRN PO PAIN AND OR ELEVATED TEMP Last administered on 05/02/17 18:20; Admin Dose 650 MG; Start 05/01/17 at 21:00 Morphine Sulfate 3 mg 3 mg Q3H PRN IV SEVERE PAIN LEVEL 7-10 Last administered on 05/03/17 11:47; Admin Dose 3 MG; Start 05/02/17 at 13:00 Piperacillin Sod/ Tazobactam Sod (Zosyn 3.375gm/ 100 ml (Pmx)) 100 ml @ 200 mls /hr Q6 IVPB Last administered on 05/04/17 17:54; Admin Dose 200 MLS/HR; Start 05/02/17 at 18:00 Zolpidem Tartrate (Ambien) 5 mg HS PRN PO INSOMNIA Last administered on 20:38; Admin Dose 5 MG; Start 05/02/17 at 18:00 Docusate Sodium (Colace) 100 mg BID PO Last administered on 05/04/17 09:34; Admin Dose 100 MG; Start 05/03/17 at 11:00 Senna (Senokot) 1 tab BID PO Last administered on 05/04/17 09:34; Admin Dose 1 TAB; Start 05/03/17 at 11:00 Ketorolac Tromethamine (Toradol) 15 mg Q6H PRN IV PAIN Last administered on 05/04 16:19; Admin Dose 15 MG; Start 05/03/17 at 14:00; Stop 05/06/17 at 13:59 Levofloxacin (Levaquin) 500 mg DAILY@06 PO ; Start 05/05/17 at 06:00 MEMO AYON NP May 04, 2017 21:23
[2017-05-04] MEDS: ATORVASTATIN 10 MG TAB PO SCH (23:22)
[2017-05-04] MEDS: INSULIN GLARGINE [LANtus] 3 ML PEN SC SCH (23:41)
[2017-05-05] VITALS (12 sets, daily range): BP systolic 139–150; BP diastolic 69–76; PULSE 61–75; RESP 18
[2017-05-05] MEDS: PIPER-TAZO 3.375 GM IV (PMX) 100 ML IVPB SCH ×3 (00:06→11:12)
[2017-05-05] MEDS: ACCU-CHEK XX SCH ×2 (00:26→20:01)
[2017-05-05] MEDS: HYDROCODONE/APAP (5/325) TAB PO PRN ×2 (03:38→17:10)
[2017-05-05] MEDS: LEVOFLOXACIN 500 MG TAB PO SCH (05:40)
[2017-05-05] MEDS: SOD CHLORIDE 0.9% 1,000 ML IV SCH ×2 (05:41→17:12)
[2017-05-05] MEDS: INSULIN ASPART [NOVOLOG] 3 ML PEN SC SCH ×7 (07:55→20:01)
[2017-05-05] MEDS: SENNA TAB PO SCH ×2 (08:22→20:00)
[2017-05-05] MEDS: DOCUSATE SODIUM 100 MG CAP PO SCH ×2 (08:22→19:59)
[2017-05-05] MEDS: FAMOTIDINE 20 MG TAB PO SCH ×2 (08:22→20:00)
[2017-05-05] MEDS: AMLODIPINE 10 MG TAB PO SCH (08:22)
[2017-05-05] MEDS: LOSARTAN 50 MG TAB PO SCH (08:22)
--- NOTE | 2017-05-05 08:51 | RADRPT ---
PROCEDURE: CT Chest without contrast. CLINICAL INDICATION: Pneumonia TECHNIQUE: CT of the chest was performed on a multi-detector scanner without IV contrast. Coronal and sagittal images were reformatted from the axial data set. One or more of the following dose re duction techniques were used: automated exposure control, adjustment of the mA and/or kV according t o patient size, use of iterative reconstruction technique. CTDI = 13.77 mGy. DLP = 519.41 mGy-cm. COMPARISON: CT, 05/01/2017 FINDINGS: There are small to mild bilateral pleural effusions, greater on the left, with associated bibasilar atelectasis. Multiple foci of mixed ground-glass opacity and consolidation are identified bilateral ly, largest in the right upper lobe, predominantly located in the lung periphery, and somewhat wedge -shaped and appearance. No pneumothorax is identified. The central tracheobronchial tree is clear. No gross evidence of pulmonary nodule or mass is identified. There is mild cardiomegaly, without pericardial effusion. Coronary arterial and aortic atherosclero tic calcifications are present. There is no thoracic aortic aneurysm. No mediastinal, hilar, axill ya or supraclavicular lymphadenopathy is identified. The liver surface is nodular, suggestive of cirrhosis. Mild upper abdominal ascites is present. Sp lenomegaly is noted. The surrounding osseous structures are remarkable for degenerative spondylosis of the spine. No osteolytic or osteoblastic lesion is detected. IMPRESSION: 1. Areas of wedge shaped pulmonary ground-glass opacity and consolidation are identified bilaterall y, predominately located in the lung periphery - appearance is concerning for multifocal lung infarc ts secondary to underlying pulmonary emboli. Other possibilities include infectious pneumonia and c ryptogenic organizing pneumonia. CTA of the chest is recommended for further evaluation. 2. There are small to mild bilateral pleural effusions, greater on the left, with associated bibasi lar atelectasis, increased from the prior CT. 3. There is stable mild cardiomegaly. Coronary arterial and aortic atherosclerotic calcifications are present. 4. The liver appears cirrhotic, with signs of portal hypertension including splenomegaly and mild u pper abdominal ascites. A call report was made to MISAEL Cormier on 05/05/2017 8:44:32 AM. RPTAT: EE .Abner Brizuela MD, MD Date Time Electronically viewed and signed by .Abner Brizuela MD, MD on 05/05/2017 08:50 .R/
[2017-05-05] MEDS: KETOROLAC 15 MG INJ IV PRN ×2 (11:12→20:00)
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
--- NOTE | 2017-05-05 12:49 | CONS ---
Date/Time of Note Date/Time of Note DATE: 05/05/17 TIME: 12:48 Assessment/Plan Assessment/Plan Chief Complaint/Hosp Course SUBJECTIVE: Alert, feels much better MICROBIOLOGY: Blood culture and urine culture growing Staphylococcus aureus, oxacillin sensitive. Cerebrospinal fluid cultures came back negative. Influenza swab also negative. ANTIMICROBIALS: 1. Levaquin. 2. Zosyn. PHYSICAL EXAMINATION: GENERAL: This is a well-developed, elderly man who is alert, in no distress. HEENT: Head atraumatic, normocephalic. Sclerae anicteric. Buccal mucosa pink. NECK: Supple, trachea midline. CHEST: Rise symmetrical. Breath sounds clear, diminished to bases. HEART: S1, S2. ABDOMEN: Soft, bowel sounds present. EXTREMITIES: Without cyanosis. ASSESSMENT: 1. Sepsis, resolving. 2. Oxacillin-sensitive Staphylococcus aureus urinary tract infection with bacteremia. 3. Questionable cholecystitis. 4. Viral meningitis. 5. Pneumonia PLAN: Continues to improve, will change Zosyn to Rocephin, continue Levaquin, f /u repeat bld cx and pulmonary rec-s DW staff Problems: Consultation Date/Type/Reason Admit Date/Time May 01, 2017 at 10:16 Initial Consult Date 05/04/17 Type of Consultation: ID Referring Provider: DEV MARQUES SECURITY PROFESSIONAL Exam/Review of Systems Vital Signs Vitals Vital Signs Date Time Temp Pulse Resp B/P Pulse Ox O2 Delivery O2 Flow Rate FiO2 05/05/17 12:23 68 05/05/17 11:17 98.6 18 149/76 96 05/04/17 07:33 Nasal Cannula 2.0 Intake and Output 05/04/17 05/04/17 05/05/17 15:00 23:00 07:00 Intake Total 2400 ml 1860 ml Output Total 1500 ml Balance 900 ml 1860 ml Results Result Diagram: 05/03/17 0610 05/03/17 0610 Results 24 hrs Laboratory Tests Test 05/04/17 17:50 05/04/17 23:23 05/05/17 08:20 05/05/17 11:16 Bedside Glucose 124 117 86 169 Medications Medications Current Medications Hydralazine HCl 10 mg 10 mg Q6H PRN IV SBP>160; Start 05/01/17 at 12:00 Sodium Chloride (NS) 1,000 ml @ 100 mls/hr Q10H IV Last administered on 05:41; Admin Dose 100 MLS/HR; Start 05/01/17 at 11:53 Ondansetron HCl (Zofran Inj) 4 mg Q6H PRN IV NAUSEA AND/OR VOMITING; Start 05/01 at 12:00 Acetaminophen/ Hydrocodone Bitart ([place] (5/325)) 1 tab Q6H PRN PO PAIN LEVEL 4 -6 Last administered on 05/05/17 03:38; Admin Dose 1 TAB; Start 05/01/17 at 12:00 Famotidine (Pepcid) 20 mg Q12 PO Last administered on 05/05/17 08:22; Admin Dose 20 MG; Start 05/01/17 at 21:00 Insulin Glargine (Lantus) 14 unit DAILY@20 SC Last administered on 05/04/17 23: 41; Admin Dose 14 UNIT; Start 05/01/17 at 20:00 Diagnostic Test (Pha) (Accu-Chek) 1 ea 02 XX ; Start 05/02/17 at 02:00 Losartan Potassium (Cozaar) 50 mg DAILY PO Last administered on 05/05/17 08:22 ; Admin Dose 50 MG; Start 05/02/17 at 09:00 Atorvastatin Calcium (Lipitor) 10 mg HS PO Last administered on 05/04/17 23:22 ; Admin Dose 10 MG; Start 05/01/17 at 21:00 Amlodipine Besylate (Norvasc) 10 mg DAILY PO Last administered on 05/05/17 08: 22; Admin Dose 10 MG; Start 05/02/17 at 09:00 Miscellaneous Information 1 ea NOTE XX ; Start 05/01/17 at 13:00 Glucose (Glutose) 15 gm Q15M PRN PO DECREASED GLUCOSE; Start 05/01/17 at 13:00 Glucose (Glutose) 22.5 gm Q15M PRN PO DECREASED GLUCOSE; Start 05/01/17 at 13:00 Dextrose (D50w Syringe) 25 ml Q15M PRN IV DECREASED GLUCOSE; Start 05/01/17 at 13:00 Dextrose (D50w Syringe) 50 ml Q15M PRN IV DECREASED GLUCOSE; Start 05/01/17 at 13:00 Glucagon (Glucagen) 1 mg Q15M PRN IM DECREASED GLUCOSE; Start 05/01/17 at 13:00 Glucose (Glutose) 15 gm Q15M PRN BUCCAL DECREASED GLUCOSE; Start 05/01/17 at 13: 00 Acetaminophen (Tylenol Tab) 650 mg Q6H PRN PO PAIN AND OR ELEVATED TEMP Last administered on 05/02/17 18:20; Admin Dose 650 MG; Start 05/01/17 at 21:00 Morphine Sulfate 3 mg 3 mg Q3H PRN IV SEVERE PAIN LEVEL 7-10 Last administered on 05/03/17 11:47; Admin Dose 3 MG; Start 05/02/17 at 13:00 Piperacillin Sod/ Tazobactam Sod (Zosyn 3.375gm/ 100 ml (Pmx)) 100 ml @ 200 mls /hr Q6 IVPB Last administered on 05/05/17 11:12; Admin Dose 200 MLS/HR; Start 05/02/17 at 18:00 Zolpidem Tartrate (Ambien) 5 mg HS PRN PO INSOMNIA Last administered on 20:38; Admin Dose 5 MG; Start 05/02/17 at 18:00 Docusate Sodium (Colace) 100 mg BID PO Last administered on 05/05/17 08:22; Admin Dose 100 MG; Start 05/03/17 at 11:00 Senna (Senokot) 1 tab BID PO Last administered on 05/05/17 08:22; Admin Dose 1 TAB; Start 05/03/17 at 11:00 Ketorolac Tromethamine (Toradol) 15 mg Q6H PRN IV PAIN Last administered on 05/05 11:12; Admin Dose 15 MG; Start 05/03/17 at 14:00; Stop 05/06/17 at 13:59 Levofloxacin (Levaquin) 500 mg DAILY@06 PO Last administered on 05/05/17 05:40 ; Admin Dose 500 MG; Start 05/05/17 at 06:00 MEMO AYON NP May 05, 2017 12:49
[2017-05-05] MEDS: CEFTRIAXONE 1 GM/50 ML (PMX) 50 ML IVPB SCH (13:05)
[2017-05-05 15:36] LABS: ADD SCAN DIFF NO
--- NOTE | 2017-05-05 15:39 | PN ---
Date/Time of Note Date/Time of Note DATE: 05/05/17 TIME: 15:34 Assessment/Plan VTE Prophylaxis VTE Prophylaxis Intervention: heparin Lines/Catheters IV Catheter Type (from Nrs): Peripheral IV Assessment/Plan Chief Complaint/Hosp Course Assessment and plan 1. Reported viral meningitis. Continue antibiotics. Analgesics as needed. 2. Sepsis secondary to #1. No evidence of shock. on ABX. antipyretics for fever. 3. Essential hypertension. Continue antihypertensives and adjust as needed 4. dyslipidemia. Continue statin medication. Stable at present. 5. Diabetes. A1c at 8.7. Continue insulin regimen. Stable at present. Will adjust as needed. 6. Hepatitis B serology positive. Continue with ID recommendations. 7. Pneumonia. continue with abx. Of note, CT scan of the chest did show areas of wedge-shaped pulmonary groundglass opacity and consolidation bilaterally located in the lung periphery with clinical picture of possible multifocal lung infarct secondary to underlying pulmonary embolus. Also possibility of infectious pneumonia and cryptogenic organizing pneumonia. Consider CTA of the chest. Follow-up with shotblast equipment operator recommendations. patient does report having some chest pain on deep inspiration DVT prophylaxis: SCDs GERD prophylaxis: H2 devang Disposition and plan: continue with antibiotics. Await for clinical improvement of pneumonia. Discussed plan of care with Dr. Donnelly Problems: Subjective 24 Hr Interval Summary Free Text/Dictation Reports having some chest pain on deep inspiration Exam/Review of Systems Vital Signs Vitals Vital Signs Date Time Temp Pulse Resp B/P Pulse Ox O2 Delivery O2 Flow Rate FiO2 05/05/17 14:57 98.6 69 18 150/73 91 05/04/17 07:33 Nasal Cannula 2.0 Intake and Output 05/04/17 05/04/17 05/05/17 15:00 23:00 07:00 Intake Total 2400 ml 1860 ml Output Total 1500 ml Balance 900 ml 1860 ml Exam Constitutional: alert, oriented Psych: nl mood/affect Head: normocephalic Neck: supple, No jvd Respiratory: other (diminished at bases ) Cardiovascular: regular rate and rhythm Gastrointestinal: non-tender, soft Extremities: edema (left lower extremity) Neurological: TRAY LINE WORKER II-XII intact, nl mental status, nl speech Results Result Diagram: 05/03/17 0610 05/03/17 0610 Results 24 hrs Laboratory Tests Test 05/04/17 17:50 05/04/17 23:23 05/05/17 08:20 05/05/17 11:16 Bedside Glucose 124 117 86 169 Medications Medications Current Medications Hydralazine HCl 10 mg 10 mg Q6H PRN IV SBP>160; Start 05/01/17 at 12:00 Sodium Chloride (NS) 1,000 ml @ 100 mls/hr Q10H IV Last administered on 05:41; Admin Dose 100 MLS/HR; Start 05/01/17 at 11:53 Ondansetron HCl (Zofran Inj) 4 mg Q6H PRN IV NAUSEA AND/OR VOMITING; Start 05/01 at 12:00 Acetaminophen/ Hydrocodone Bitart ([place] (5/325)) 1 tab Q6H PRN PO PAIN LEVEL 4 -6 Last administered on 05/05/17 03:38; Admin Dose 1 TAB; Start 05/01/17 at 12:00 Famotidine (Pepcid) 20 mg Q12 PO Last administered on 05/05/17 08:22; Admin Dose 20 MG; Start 05/01/17 at 21:00 Insulin Glargine (Lantus) 14 unit DAILY@20 SC Last administered on 05/04/17 23: 41; Admin Dose 14 UNIT; Start 05/01/17 at 20:00 Diagnostic Test (Pha) (Accu-Chek) 1 ea 02 XX ; Start 05/02/17 at 02:00 Losartan Potassium (Cozaar) 50 mg DAILY PO Last administered on 05/05/17 08:22 ; Admin Dose 50 MG; Start 05/02/17 at 09:00 Atorvastatin Calcium (Lipitor) 10 mg HS PO Last administered on 05/04/17 23:22 ; Admin Dose 10 MG; Start 05/01/17 at 21:00 Amlodipine Besylate (Norvasc) 10 mg DAILY PO Last administered on 05/05/17 08: 22; Admin Dose 10 MG; Start 05/02/17 at 09:00 Miscellaneous Information 1 ea NOTE XX ; Start 05/01/17 at 13:00 Glucose (Glutose) 15 gm Q15M PRN PO DECREASED GLUCOSE; Start 05/01/17 at 13:00 Glucose (Glutose) 22.5 gm Q15M PRN PO DECREASED GLUCOSE; Start 05/01/17 at 13:00 Dextrose (D50w Syringe) 25 ml Q15M PRN IV DECREASED GLUCOSE; Start 05/01/17 at 13:00 Dextrose (D50w Syringe) 50 ml Q15M PRN IV DECREASED GLUCOSE; Start 05/01/17 at 13:00 Glucagon (Glucagen) 1 mg Q15M PRN IM DECREASED GLUCOSE; Start 05/01/17 at 13:00 Glucose (Glutose) 15 gm Q15M PRN BUCCAL DECREASED GLUCOSE; Start 05/01/17 at 13: 00 Acetaminophen (Tylenol Tab) 650 mg Q6H PRN PO PAIN AND OR ELEVATED TEMP Last administered on 05/02/17 18:20; Admin Dose 650 MG; Start 05/01/17 at 21:00 Morphine Sulfate (morphine) 3 mg Q3H PRN IV SEVERE PAIN LEVEL 7-10 Last administered on 05/03/17 11:47; Admin Dose 3 MG; Start 05/02/17 at 13:00 Zolpidem Tartrate (Ambien) 5 mg HS PRN PO INSOMNIA Last administered on 20:38; Admin Dose 5 MG; Start 05/02/17 at 18:00 Docusate Sodium (Colace) 100 mg BID PO Last administered on 05/05/17 08:22; Admin Dose 100 MG; Start 05/03/17 at 11:00 Senna (Senokot) 1 tab BID PO Last administered on 05/05/17 08:22; Admin Dose 1 TAB; Start 05/03/17 at 11:00 Ketorolac Tromethamine (Toradol) 15 mg Q6H PRN IV PAIN Last administered on 05/05 11:12; Admin Dose 15 MG; Start 05/03/17 at 14:00; Stop 05/06/17 at 13:59 Levofloxacin 500 mg 500 mg DAILY@06 PO Last administered on 05/05/17 05:40; Admin Dose 500 MG; Start 05/05/17 at 06:00 Ceftriaxone Sodium (Rocephin) 50 ml @ 100 mls/hr Q24H IVPB Last administered on 05/05/17 13:05; Admin Dose 100 MLS/HR; Start 05/05/17 at 13:00 JEN ELIZABETH May 05, 2017 15:39
[2017-05-05 15:40] LABS: BASOPHILS % 0.1 % (0.0-2.0); EOSINOPHILS # 0.2 10^3/ul (0.0-0.5); EOSINOPHILS % 2.5 % (0.0-7.0); HEMATOCRIT 36.1 % (42.0-52.0); HEMOGLOBIN 12.8 g/dl (14.0-18.0); LYMPHOCYTES # 0.8 10^3/ul (0.8-2.9); LYMPHOCYTES % 10.3 % (15.0-51.0); MEAN CORPUSCULAR HEMOGLOBIN 31.4 pg (29.0-33.0); MEAN CORPUSCULAR HGB CONC 35.5 g/dl (32.0-37.0); MEAN CORPUSCULAR VOLUME 88.5 fl (82.0-101.0); MEAN PLATELET VOLUME 10.4 fl (7.4-10.4); MONOCYTE # 0.8 10^3/ul (0.3-0.9); MONOCYTES % 9.9 % (0.0-11.0); NEUTROPHIL # 6.1 10^3/ul (1.6-7.5); NEUTROPHILS % 75.6 % (39.0-77.0); PLATELET COUNT 155 10^3/UL (140-415); RED BLOOD COUNT 4.08 10^6/ul (4.70-6.10); RED CELL DISTRIBUTION WIDTH 13.4 % (11.5-14.5); WHITE BLOOD COUNT 8.1 10^3/ul (4.8-10.8)
[2017-05-05 16:10] LABS: CALCIUM 7.9 mg/dl (8.4-10.2); CREATININE 0.79 mg/dl (0.61-1.24)
[2017-05-05 18:37] LABS: VDRL, CSF NON-REACTIVE
[2017-05-05] MEDS: ATORVASTATIN 10 MG TAB PO SCH (20:00)
[2017-05-05] MEDS: INSULIN GLARGINE [LANtus] 3 ML PEN SC SCH (20:08)
[2017-05-06] VITALS (11 sets, daily range): BP systolic 145–166; BP diastolic 72–81; PULSE 60–76; RESP 18
[2017-05-06] MEDS: HYDROCODONE/APAP (5/325) TAB PO PRN ×3 (01:08→17:16)
[2017-05-06] MEDS: SOD CHLORIDE 0.9% 1,000 ML IV SCH ×2 (03:57→14:11)
[2017-05-06] MEDS: KETOROLAC 15 MG INJ IV PRN (04:05)
[2017-05-06 06:23] LABS: ADD SCAN DIFF NO
[2017-05-06] MEDS: LEVOFLOXACIN 500 MG TAB PO SCH (06:33)
[2017-05-06 06:38] LABS: BASOPHILS % 0.1 % (0.0-2.0); EOSINOPHILS # 0.2 10^3/ul (0.0-0.5); EOSINOPHILS % 2.3 % (0.0-7.0); HEMOGLOBIN 12.3 g/dl (14.0-18.0); LYMPHOCYTES # 1.1 10^3/ul (0.8-2.9); LYMPHOCYTES % 12.7 % (15.0-51.0); MEAN CORPUSCULAR HEMOGLOBIN 31.1 pg (29.0-33.0); MEAN CORPUSCULAR HGB CONC 35.1 g/dl (32.0-37.0); MEAN CORPUSCULAR VOLUME 88.4 fl (82.0-101.0); MEAN PLATELET VOLUME 10.5 fl (7.4-10.4); MONOCYTE # 0.7 10^3/ul (0.3-0.9); MONOCYTES % 8.3 % (0.0-11.0); NEUTROPHIL # 6.2 10^3/ul (1.6-7.5); PLATELET COUNT 163 10^3/UL (140-415); RED BLOOD COUNT 3.96 10^6/ul (4.70-6.10); RED CELL DISTRIBUTION WIDTH 13.5 % (11.5-14.5); WHITE BLOOD COUNT 8.3 10^3/ul (4.8-10.8)
[2017-05-06 06:52] LABS: CALCIUM 7.6 mg/dl (8.4-10.2); CREATININE 0.85 mg/dl (0.61-1.24); POTASSIUM 3.6 mmol/L (3.5-5.1)
[2017-05-06] MEDS: INSULIN ASPART [NOVOLOG] 3 ML PEN SC SCH ×7 (07:55→21:00)
[2017-05-06] MEDS: DOCUSATE SODIUM 100 MG CAP PO SCH ×2 (08:17→21:40)
[2017-05-06] MEDS: SENNA TAB PO SCH ×2 (08:17→21:41)
[2017-05-06] MEDS: LOSARTAN 50 MG TAB PO SCH (08:18)
[2017-05-06] MEDS: FAMOTIDINE 20 MG TAB PO SCH ×2 (08:18→21:41)
[2017-05-06] MEDS: AMLODIPINE 10 MG TAB PO SCH (08:19)
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
[2017-05-06] MEDS: FUROSEMIDE 40 MG INJ IV SCH (11:58)
[2017-05-06] MEDS: CEFTRIAXONE 1 GM/50 ML (PMX) 50 ML IVPB SCH (14:13)
--- NOTE | 2017-05-06 16:22 | PN ---
Date/Time of Note Date/Time of Note DATE: 05/06/17 TIME: 16:20 Assessment/Plan VTE Prophylaxis VTE Prophylaxis Intervention: SCD's Lines/Catheters IV Catheter Type (from Nrs): Peripheral IV Assessment/Plan Chief Complaint/Hosp Course Assessment and plan 1. Reported viral meningitis. Continue antibiotics. Analgesics as needed. 2. Sepsis secondary to #1. No evidence of shock. on ABX. antipyretics for fever. Improving at present 3. Essential hypertension. Continue antihypertensives and adjust as needed 4. Dyspnea. Continue statin medication. Stable at present. 5. Diabetes. A1c at 8.7. Continue insulin regimen. Stable at present. Will adjust as needed. 6. Hepatitis B serology positive. Continue with ID recommendations. 7. Pneumonia. continue with abx. Of note, CT scan of the chest did show areas of wedge-shaped pulmonary groundglass opacity and consolidation bilaterally located in the lung periphery with clinical picture of possible multifocal lung infarct secondary to underlying pulmonary embolus. Also possibility of infectious pneumonia and cryptogenic organizing pneumonia. No acute respiratory distress seen will provide with bronchodilators as needed. Continue with hoister recommendations DVT prophylaxis: SCDs GERD prophylaxis: H2 devang Disposition and plan: continue with antibiotics. Await for clinical improvement of pneumonia. Follow-up chest radiograph per hoister Discussed plan of care with Dr. Donnelly Problems: Subjective 24 Hr Interval Summary Free Text/Dictation Reports feeling better at this time. Still reports having some left lower extremity swelling but less today. Exam/Review of Systems Vital Signs Vitals Vital Signs Date Time Temp Pulse Resp B/P Pulse Ox O2 Delivery O2 Flow Rate FiO2 05/06/17 12:15 68 05/06/17 11:52 98.2 18 152/78 95 05/04/17 07:33 Nasal Cannula 2.0 Intake and Output 05/05/17 05/05/17 05/06/17 15:00 23:00 07:00 Intake Total 1470 ml 1680 ml Balance 1470 ml 1680 ml Exam Constitutional: alert, oriented Psych: no complaints Head: normocephalic Eyes: nl conjunctiva Neck: supple, No jvd Respiratory: other Cardiovascular: regular rate and rhythm Gastrointestinal: non-tender, soft Extremities: edema (Seen on left lower extremity) Neurological: MULTI SLIDE MACHINE TENDER II-XII intact, nl mental status, nl speech Results Result Diagram: 05/06/17 0556 05/06/17 0556 Results 24 hrs Laboratory Tests Test 05/05/17 17:14 05/05/17 19:59 05/06/17 05:56 05/06/17 07:53 Bedside Glucose 93 117 125 White Blood Count 8.3 Red Blood Count 3.96 L Hemoglobin 12.3 L Hematocrit 35.0 L Mean Corpuscular Volume 88.4 Mean Corpuscular Hemoglobin 31.1 Mean Corpuscular Hemoglobin Concent 35.1 Red Cell Distribution Width 13.5 Platelet Count 163 Mean Platelet Volume 10.5 H Neutrophils % 75.0 Lymphocytes % 12.7 L Monocytes % 8.3 Eosinophils % 2.3 Basophils % 0.1 Nucleated Red Blood Cells % 0.0 Neutrophils # 6.2 Lymphocytes # 1.1 Monocytes # 0.7 Eosinophils # 0.2 Basophils # 0.0 Nucleated Red Blood Cells # 0.0 Sodium Level 137 Potassium Level 3.6 Chloride Level 107 Carbon Dioxide Level 23 Anion Gap 11 Blood Urea Nitrogen 9 Creatinine 0.85 Glucose Level 70 Calcium Level 7.6 L Test 05/06/17 11:57 Bedside Glucose 170 Medications Medications Current Medications Hydralazine HCl 10 mg 10 mg Q6H PRN IV SBP>160; Start 05/01/17 at 12:00 Sodium Chloride (NS) 1,000 ml @ 100 mls/hr Q10H IV Last administered on 14:11; Admin Dose 100 MLS/HR; Start 05/01/17 at 11:53 Ondansetron HCl (Zofran Inj) 4 mg Q6H PRN IV NAUSEA AND/OR VOMITING; Start 05/01 at 12:00 Acetaminophen/ Hydrocodone Bitart ([place] (5/325)) 1 tab Q6H PRN PO PAIN LEVEL 4 -6 Last administered on 05/06/17 11:27; Admin Dose 1 TAB; Start 05/01/17 at 12:00 Famotidine (Pepcid) 20 mg Q12 PO Last administered on 05/06/17 08:18; Admin Dose 20 MG; Start 05/01/17 at 21:00 Insulin Glargine (Lantus) 14 unit DAILY@20 SC Last administered on 05/05/17 20: 08; Admin Dose 14 UNIT; Start 05/01/17 at 20:00 Diagnostic Test (Pha) (Accu-Chek) 1 ea 02 XX ; Start 05/02/17 at 02:00 Losartan Potassium (Cozaar) 50 mg DAILY PO Last administered on 05/06/17 08:18 ; Admin Dose 50 MG; Start 05/02/17 at 09:00 Atorvastatin Calcium (Lipitor) 10 mg HS PO Last administered on 05/05/17 20:00 ; Admin Dose 10 MG; Start 05/01/17 at 21:00 Amlodipine Besylate (Norvasc) 10 mg DAILY PO Last administered on 05/06/17 08: 19; Admin Dose 10 MG; Start 05/02/17 at 09:00 Miscellaneous Information 1 ea NOTE XX ; Start 05/01/17 at 13:00 Glucose (Glutose) 15 gm Q15M PRN PO DECREASED GLUCOSE; Start 05/01/17 at 13:00 Glucose (Glutose) 22.5 gm Q15M PRN PO DECREASED GLUCOSE; Start 05/01/17 at 13:00 Dextrose (D50w Syringe) 25 ml Q15M PRN IV DECREASED GLUCOSE; Start 05/01/17 at 13:00 Dextrose (D50w Syringe) 50 ml Q15M PRN IV DECREASED GLUCOSE; Start 05/01/17 at 13:00 Glucagon (Glucagen) 1 mg Q15M PRN IM DECREASED GLUCOSE; Start 05/01/17 at 13:00 Glucose (Glutose) 15 gm Q15M PRN BUCCAL DECREASED GLUCOSE; Start 05/01/17 at 13: 00 Acetaminophen (Tylenol Tab) 650 mg Q6H PRN PO PAIN AND OR ELEVATED TEMP Last administered on 05/02/17 18:20; Admin Dose 650 MG; Start 05/01/17 at 21:00 Morphine Sulfate (morphine) 3 mg Q3H PRN IV SEVERE PAIN LEVEL 7-10 Last administered on 05/03/17 11:47; Admin Dose 3 MG; Start 05/02/17 at 13:00 Zolpidem Tartrate (Ambien) 5 mg HS PRN PO INSOMNIA Last administered on 20:38; Admin Dose 5 MG; Start 05/02/17 at 18:00 Docusate Sodium (Colace) 100 mg BID PO Last administered on 05/06/17 08:17; Admin Dose 100 MG; Start 05/03/17 at 11:00 Senna (Senokot) 1 tab BID PO Last administered on 05/06/17 08:17; Admin Dose 1 TAB; Start 05/03/17 at 11:00 Levofloxacin 500 mg 500 mg DAILY@06 PO Last administered on 05/06/17 06:33; Admin Dose 500 MG; Start 05/05/17 at 06:00 Ceftriaxone Sodium (Rocephin) 50 ml @ 100 mls/hr Q24H IVPB Last administered on 05/06/17 14:13; Admin Dose 100 MLS/HR; Start 05/05/17 at 13:00 Furosemide (Lasix) 40 mg DAILY IV Last administered on 05/06/17 11:58; Admin Dose 40 MG; Start 05/06/17 at 11:00 JEN ELIZABETH May 06, 2017 16:22
[2017-05-06] MEDS: ACETAMINOPHEN 325 MG TAB PO PRN (21:40)
[2017-05-06] MEDS: ATORVASTATIN 10 MG TAB PO SCH (21:41)
[2017-05-06] MEDS: INSULIN GLARGINE [LANtus] 3 ML PEN SC SCH (21:45)
[2017-05-06] MEDS: morphine 4 MG/ML VIAL IV PRN (21:53)
[2017-05-07] VITALS (10 sets, daily range): BP systolic 139–169; BP diastolic 74–84; PULSE 66–72; RESP 16–18
[2017-05-07] MEDS: SOD CHLORIDE 0.9% 1,000 ML IV SCH ×2 (01:00→07:53)
[2017-05-07] MEDS: ACCU-CHEK XX SCH (01:02)
[2017-05-07] MEDS: HYDROCODONE/APAP (5/325) TAB PO PRN ×3 (03:31→17:11)
[2017-05-07] MEDS: LEVOFLOXACIN 500 MG TAB PO SCH (05:22)
[2017-05-07 06:48] LABS: ADD SCAN DIFF NO
[2017-05-07 06:57] LABS: BASOPHILS % 0.4 % (0.0-2.0); EOSINOPHILS # 0.2 10^3/ul (0.0-0.5); EOSINOPHILS % 2.5 % (0.0-7.0); HEMATOCRIT 35.3 % (42.0-52.0); HEMOGLOBIN 12.2 g/dl (14.0-18.0); LYMPHOCYTES # 1.2 10^3/ul (0.8-2.9); LYMPHOCYTES % 14.5 % (15.0-51.0); MEAN CORPUSCULAR HEMOGLOBIN 30.4 pg (29.0-33.0); MEAN CORPUSCULAR HGB CONC 34.6 g/dl (32.0-37.0); MONOCYTE # 0.7 10^3/ul (0.3-0.9); MONOCYTES % 7.9 % (0.0-11.0); NEUTROPHIL # 6.1 10^3/ul (1.6-7.5); NEUTROPHILS % 72.8 % (39.0-77.0); PLATELET COUNT 171 10^3/UL (140-415); RED BLOOD COUNT 4.01 10^6/ul (4.70-6.10); RED CELL DISTRIBUTION WIDTH 13.6 % (11.5-14.5); WHITE BLOOD COUNT 8.4 10^3/ul (4.8-10.8)
[2017-05-07 07:21] LABS: CALCIUM 7.6 mg/dl (8.4-10.2); CREATININE 0.88 mg/dl (0.61-1.24)
[2017-05-07] MEDS: INSULIN ASPART [NOVOLOG] 3 ML PEN SC SCH ×7 (07:55→21:00)
[2017-05-07] MEDS: FUROSEMIDE 40 MG INJ IV SCH (09:31)
[2017-05-07] MEDS: AMLODIPINE 10 MG TAB PO SCH (09:31)
[2017-05-07] MEDS: SENNA TAB PO SCH ×2 (09:31→21:11)
[2017-05-07] MEDS: LOSARTAN 50 MG TAB PO SCH (09:32)
[2017-05-07] MEDS: DOCUSATE SODIUM 100 MG CAP PO SCH ×2 (09:32→21:11)
[2017-05-07] MEDS: FAMOTIDINE 20 MG TAB PO SCH ×2 (09:32→21:11)
[2017-05-07] MEDS ORDERED: POTASSIUM CHLORIDE (SR) 20 MEQ TAB PO STA (11:15)
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
--- NOTE | 2017-05-07 12:40 | CONS ---
Date/Time of Note Date/Time of Note DATE: 05/07/17 TIME: 12:38 Assessment/Plan Assessment/Plan Chief Complaint/Hosp Course SUBJECTIVE: Alert, had neck pain last night, also with L foot swelling and erythema, nad MICROBIOLOGY: Blood culture and urine culture growing Staphylococcus aureus, oxacillin sensitive. Cerebrospinal fluid cultures came back negative. Influenza swab also negative. ANTIMICROBIALS: 1. Levaquin. 2. Rocephin. PHYSICAL EXAMINATION: GENERAL: This is a well-developed, elderly man who is alert, in no distress. HEENT: Head atraumatic, normocephalic. Sclerae anicteric. Buccal mucosa pink. NECK: Supple, trachea midline. CHEST: Rise symmetrical. Breath sounds clear, diminished to bases. HEART: S1, S2. ABDOMEN: Soft, bowel sounds present. EXTREMITIES: Without cyanosis. ASSESSMENT: 1. Sepsis, resolving. 2. Oxacillin-sensitive Staphylococcus aureus urinary tract infection with bacteremia. 3. L foot cellulitis ?gouty arthritis exacerbation . 4. Viral meningitis. 5. Pneumonia PLAN: Clinically stable, will restart Vanco for L foot cellulitis, continue other abx, keep L foot elevated, check uric acid level DW staff Problems: Consultation Date/Type/Reason Admit Date/Time May 01, 2017 at 10:16 Initial Consult Date 05/04/17 Type of Consultation: id Referring Provider: DEV MARQUES FIELD MACHINIST Exam/Review of Systems Vital Signs Vitals Vital Signs Date Time Temp Pulse Resp B/P Pulse Ox O2 Delivery O2 Flow Rate FiO2 05/07/17 12:10 70 05/07/17 11:13 98.5 16 139/74 96 05/04/17 07:33 Nasal Cannula 2.0 Intake and Output 05/06/17 05/06/17 05/07/17 15:00 23:00 07:00 Intake Total 50 ml 2000 ml 2250 ml Balance 50 ml 2000 ml 2250 ml Results Result Diagram: 05/07/17 0616 05/07/17 0616 Results 24 hrs Laboratory Tests Test 05/06/17 17:13 05/06/17 21:29 05/07/17 06:16 05/07/17 07:50 Bedside Glucose 125 157 91 White Blood Count 8.4 Red Blood Count 4.01 L Hemoglobin 12.2 L Hematocrit 35.3 L Mean Corpuscular Volume 88.0 Mean Corpuscular Hemoglobin 30.4 Mean Corpuscular Hemoglobin Concent 34.6 Red Cell Distribution Width 13.6 Platelet Count 171 Mean Platelet Volume 10.0 Neutrophils % 72.8 Lymphocytes % 14.5 L Monocytes % 7.9 Eosinophils % 2.5 Basophils % 0.4 Nucleated Red Blood Cells % 0.0 Neutrophils # 6.1 Lymphocytes # 1.2 Monocytes # 0.7 Eosinophils # 0.2 Basophils # 0.0 Nucleated Red Blood Cells # 0.0 Sodium Level 137 Potassium Level 3.0 L Chloride Level 105 Carbon Dioxide Level 27 Anion Gap 8 Blood Urea Nitrogen 7 Creatinine 0.88 Glucose Level 86 Calcium Level 7.6 L Test 05/07/17 12:03 Bedside Glucose 210 Medications Medications Current Medications Hydralazine HCl 10 mg 10 mg Q6H PRN IV SBP>160; Start 05/01/17 at 12:00 Sodium Chloride (NS) 1,000 ml @ 100 mls/hr Q10H IV Last administered on 01:00; Admin Dose 100 MLS/HR; Start 05/01/17 at 11:53 Ondansetron HCl (Zofran Inj) 4 mg Q6H PRN IV NAUSEA AND/OR VOMITING; Start 05/01 at 12:00 Acetaminophen/ Hydrocodone Bitart ([place] (5/325)) 1 tab Q6H PRN PO PAIN LEVEL 4 -6 Last administered on 05/07/17 09:31; Admin Dose 1 TAB; Start 05/01/17 at 12:00 Famotidine (Pepcid) 20 mg Q12 PO Last administered on 05/07/17 09:32; Admin Dose 20 MG; Start 05/01/17 at 21:00 Insulin Glargine (Lantus) 14 unit DAILY@20 SC Last administered on 05/06/17 21: 45; Admin Dose 14 UNIT; Start 05/01/17 at 20:00 Diagnostic Test (Pha) (Accu-Chek) 1 ea 02 XX ; Start 05/02/17 at 02:00 Losartan Potassium (Cozaar) 50 mg DAILY PO Last administered on 05/07/17 09:32 ; Admin Dose 50 MG; Start 05/02/17 at 09:00 Atorvastatin Calcium (Lipitor) 10 mg HS PO Last administered on 05/06/17 21:41 ; Admin Dose 10 MG; Start 05/01/17 at 21:00 Amlodipine Besylate (Norvasc) 10 mg DAILY PO Last administered on 05/07/17 09: 31; Admin Dose 10 MG; Start 05/02/17 at 09:00 Miscellaneous Information 1 ea NOTE XX ; Start 05/01/17 at 13:00 Glucose (Glutose) 15 gm Q15M PRN PO DECREASED GLUCOSE; Start 05/01/17 at 13:00 Glucose (Glutose) 22.5 gm Q15M PRN PO DECREASED GLUCOSE; Start 05/01/17 at 13:00 Dextrose (D50w Syringe) 25 ml Q15M PRN IV DECREASED GLUCOSE; Start 05/01/17 at 13:00 Dextrose (D50w Syringe) 50 ml Q15M PRN IV DECREASED GLUCOSE; Start 05/01/17 at 13:00 Glucagon (Glucagen) 1 mg Q15M PRN IM DECREASED GLUCOSE; Start 05/01/17 at 13:00 Glucose (Glutose) 15 gm Q15M PRN BUCCAL DECREASED GLUCOSE; Start 05/01/17 at 13: 00 Acetaminophen (Tylenol Tab) 650 mg Q6H PRN PO PAIN AND OR ELEVATED TEMP Last administered on 05/06/17 21:40; Admin Dose 650 MG; Start 05/01/17 at 21:00 Morphine Sulfate (morphine) 3 mg Q3H PRN IV SEVERE PAIN LEVEL 7-10 Last administered on 05/06/17 21:53; Admin Dose 3 MG; Start 05/02/17 at 13:00 Zolpidem Tartrate (Ambien) 5 mg HS PRN PO INSOMNIA Last administered on 20:38; Admin Dose 5 MG; Start 05/02/17 at 18:00 Docusate Sodium (Colace) 100 mg BID PO Last administered on 05/07/17 09:32; Admin Dose 100 MG; Start 05/03/17 at 11:00 Senna (Senokot) 1 tab BID PO Last administered on 05/07/17 09:31; Admin Dose 1 TAB; Start 05/03/17 at 11:00 Levofloxacin 500 mg 500 mg DAILY@06 PO Last administered on 05/07/17 05:22; Admin Dose 500 MG; Start 05/05/17 at 06:00 Ceftriaxone Sodium (Rocephin) 50 ml @ 100 mls/hr Q24H IVPB Last administered on 05/06/17 14:13; Admin Dose 100 MLS/HR; Start 05/05/17 at 13:00 Furosemide (Lasix) 40 mg DAILY IV Last administered on 05/07/17 09:31; Admin Dose 40 MG; Start 05/06/17 at 11:00 MEMO AYON NP May 07, 2017 12:40
[2017-05-07] MEDS ORDERED: VANCOMYCIN IV PER PHARMACY XX SCH (13:00)
[2017-05-07] MEDS: CEFTRIAXONE 1 GM/50 ML (PMX) 50 ML IVPB SCH (13:43)
[2017-05-07] MEDS: ACETAMINOPHEN 325 MG TAB PO PRN (13:43)
[2017-05-07] MEDS ORDERED: VANCOMYCIN 1.25 GM in SOD CHLORIDE 0.9% 250 ML IVPB ONE (14:00)
[2017-05-07] MEDS: VANCOMYCIN 1.5 GM in SOD CHLORIDE 0.9% 250 ML IVPB SCH (14:58)
[2017-05-07] MEDS ORDERED: IODIXANOL LOCM 50 ML BTL ONE (15:45)
[2017-05-07] MEDS ORDERED: IODIXANOL LOCM 100 ML BTL ONE (15:45)
[2017-05-07] MEDS ORDERED: SOD CHLORIDE 0.9% 100 ML ONE (15:45)
--- NOTE | 2017-05-07 16:39 | PN ---
Date/Time of Note Date/Time of Note DATE: 05/07/17 TIME: 16:36 Assessment/Plan VTE Prophylaxis VTE Prophylaxis Intervention: SCD's Lines/Catheters Urinary Cath still in place: No Assessment/Plan Chief Complaint/Hosp Course Assessment and plan 1. Reported viral meningitis. Continue antibiotics. Analgesics as needed. 2. Sepsis secondary to #1. No evidence of shock. on ABX. antipyretics for fever. Improving at present 3. Essential hypertension. Continue antihypertensives and adjust as needed 4. Dyslipidemia. Continue statin medication. Stable at present. 5. Diabetes. A1c at 8.7. Continue insulin regimen. Stable at present. Will adjust as needed. 6. Hepatitis B serology positive. Continue with ID recommendations. 7. Pneumonia. continue with abx. Of note, CT scan of the chest did show areas of wedge-shaped pulmonary groundglass opacity and consolidation bilaterally located in the lung periphery with clinical picture of possible multifocal lung infarct secondary to underlying pulmonary embolus. Also possibility of infectious pneumonia and cryptogenic organizing pneumonia. No acute respiratory distress seen will provide with bronchodilators as needed. Check follow-up chest radiograph 8. Left lower extremity swelling. Continue with diuretic. Continue with analgesics DVT prophylaxis: SCDs GERD prophylaxis: H2 devang Disposition and plan: Check follow-up chest radiograph. Continue on antibiotics. Discharge when medically stable and cleared by marketing sales consultant Discussed plan of care with Dr. Donnelly Problems: Subjective 24 Hr Interval Summary Free Text/Dictation reports having some pain on LLE Exam/Review of Systems Vital Signs Vitals Vital Signs Date Time Temp Pulse Resp B/P Pulse Ox O2 Delivery O2 Flow Rate FiO2 05/07/17 16:09 70 05/07/17 15:43 98.3 16 141/75 92 05/04/17 07:33 Nasal Cannula 2.0 Intake and Output 05/06/17 05/06/17 05/07/17 14:59 22:59 06:59 Intake Total 50 ml 2000 ml 2250 ml Balance 50 ml 2000 ml 2250 ml Exam Constitutional: alert, oriented Psych: no complaints Head: normocephalic Neck: supple Respiratory: clear to auscultation, normal air movement Cardiovascular: regular rate and rhythm Gastrointestinal: non-tender, soft Extremities: edema (on LLE ) Neurological: ACCESSIONER II-XII intact, nl mental status, nl speech Results Result Diagram: 05/07/1716 6/9/17 0616 Results 24 hrs Laboratory Tests Test 05/06/17 17:13 05/06/17 21:29 05/07/17 06:16 05/07/17 07:50 Bedside Glucose 125 157 91 White Blood Count 8.4 Red Blood Count 4.01 L Hemoglobin 12.2 L Hematocrit 35.3 L Mean Corpuscular Volume 88.0 Mean Corpuscular Hemoglobin 30.4 Mean Corpuscular Hemoglobin Concent 34.6 Red Cell Distribution Width 13.6 Platelet Count 171 Mean Platelet Volume 10.0 Neutrophils % 72.8 Lymphocytes % 14.5 L Monocytes % 7.9 Eosinophils % 2.5 Basophils % 0.4 Nucleated Red Blood Cells % 0.0 Neutrophils # 6.1 Lymphocytes # 1.2 Monocytes # 0.7 Eosinophils # 0.2 Basophils # 0.0 Nucleated Red Blood Cells # 0.0 Sodium Level 137 Potassium Level 3.0 L Chloride Level 105 Carbon Dioxide Level 27 Anion Gap 8 Blood Urea Nitrogen 7 Creatinine 0.88 Glucose Level 86 Uric Acid 2.1 L Calcium Level 7.6 L Magnesium Level 2.0 Test 05/07/17 12:03 Bedside Glucose 210 Medications Medications Current Medications Hydralazine HCl 10 mg 10 mg Q6H PRN IV SBP>160; Start 05/01/17 at 12:00 Sodium Chloride (NS) 1,000 ml @ 100 mls/hr Q10H IV Last administered on 01:00; Admin Dose 100 MLS/HR; Start 05/01/17 at 11:53 Ondansetron HCl (Zofran Inj) 4 mg Q6H PRN IV NAUSEA AND/OR VOMITING; Start 05/01 at 12:00 Acetaminophen/ Hydrocodone Bitart ([place] (5/325)) 1 tab Q6H PRN PO PAIN LEVEL 4 -6 Last administered on 05/07/17 09:31; Admin Dose 1 TAB; Start 05/01/17 at 12:00 Famotidine (Pepcid) 20 mg Q12 PO Last administered on 05/07/17 09:32; Admin Dose 20 MG; Start 05/01/17 at 21:00 Insulin Glargine (Lantus) 14 unit DAILY@20 SC Last administered on 05/06/17 21: 45; Admin Dose 14 UNIT; Start 05/01/17 at 20:00 Diagnostic Test (Pha) (Accu-Chek) 1 ea 02 XX ; Start 05/02/17 at 02:00 Losartan Potassium (Cozaar) 50 mg DAILY PO Last administered on 05/07/17 09:32 ; Admin Dose 50 MG; Start 05/02/17 at 09:00 Atorvastatin Calcium (Lipitor) 10 mg HS PO Last administered on 05/06/17 21:41 ; Admin Dose 10 MG; Start 05/01/17 at 21:00 Amlodipine Besylate (Norvasc) 10 mg DAILY PO Last administered on 05/07/17 09: 31; Admin Dose 10 MG; Start 05/02/17 at 09:00 Miscellaneous Information 1 ea NOTE XX ; Start 05/01/17 at 13:00 Glucose (Glutose) 15 gm Q15M PRN PO DECREASED GLUCOSE; Start 05/01/17 at 13:00 Glucose (Glutose) 22.5 gm Q15M PRN PO DECREASED GLUCOSE; Start 05/01/17 at 13:00 Dextrose (D50w Syringe) 25 ml Q15M PRN IV DECREASED GLUCOSE; Start 05/01/17 at 13:00 Dextrose (D50w Syringe) 50 ml Q15M PRN IV DECREASED GLUCOSE; Start 05/01/17 at 13:00 Glucagon (Glucagen) 1 mg Q15M PRN IM DECREASED GLUCOSE; Start 05/01/17 at 13:00 Glucose (Glutose) 15 gm Q15M PRN BUCCAL DECREASED GLUCOSE; Start 05/01/17 at 13: 00 Acetaminophen (Tylenol Tab) 650 mg Q6H PRN PO PAIN AND OR ELEVATED TEMP Last administered on 05/07/17 13:43; Admin Dose 650 MG; Start 05/01/17 at 21:00 Morphine Sulfate (morphine) 3 mg Q3H PRN IV SEVERE PAIN LEVEL 7-10 Last administered on 05/06/17 21:53; Admin Dose 3 MG; Start 05/02/17 at 13:00 Zolpidem Tartrate (Ambien) 5 mg HS PRN PO INSOMNIA Last administered on 20:38; Admin Dose 5 MG; Start 05/02/17 at 18:00 Docusate Sodium (Colace) 100 mg BID PO Last administered on 05/07/17 09:32; Admin Dose 100 MG; Start 05/03/17 at 11:00 Senna (Senokot) 1 tab BID PO Last administered on 05/07/17 09:31; Admin Dose 1 TAB; Start 05/03/17 at 11:00 Levofloxacin 500 mg 500 mg DAILY@06 PO Last administered on 05/07/17 05:22; Admin Dose 500 MG; Start 05/05/17 at 06:00 Ceftriaxone Sodium (Rocephin) 50 ml @ 100 mls/hr Q24H IVPB Last administered on 05/07/17 13:43; Admin Dose 100 MLS/HR; Start 05/05/17 at 13:00 Furosemide 40 mg 40 mg DAILY IV Last administered on 05/07/17 09:31; Admin Dose 40 MG; Start 05/06/17 at 11:00 Vancomycin HCl/ Sodium Chloride (Vancocin/NS) 250 ml @ 83.333 mls/ hr Q12H IVPB Last administered on 05/07/17 14:58; Admin Dose 83.333 MLS/HR; Start at 14:00 JEN ELIZABETH May 07, 2017 16:39
--- NOTE | 2017-05-07 16:50 | RADRPT ---
PROCEDURE: CTA Chest. CLINICAL INDICATION: History of pneumonia. Rule out PE. TECHNIQUE: The study was performed utilizing a [employer] multidetector CT banner. Direct spiral 1 mm axial sections were obtained from the thoracic inlet to the upper abdomen with the use of 115 cc of Visipaque 320 nonionic intravenous contrast material and reformatted at 3 mm. Coronal reformations were obtained. The images were reviewed on a PACS workstation. CTDI: 42.3 and DLP: 548 One or more of the following dose reduction techniques were used: - Automated exposure control. - Adjustment of the mA and/or kV according to patient size. Use of iterative reconstruction technique. COMPARISON: CT scan of the chest performed without contrast 05/07/2017 04:06 p.m. the FINDINGS: The vocal cords and trachea are unremarkable. The thyroid gland is unremarkable. No enlarged supraclavicular, axillary or medial spinal lymph nodes are identified. There is a 7.7 m m lymph node ventral to the left mainstem bronchus. No enlarged hilar lymph nodes are identified. The main pulmonary artery and pulmonary artery outflow tracts are normal. No central or segmental p ulmonary emboli are identified. The heart is moderately enlarged. The there is a small loculated right pleural effusion. There is a moderate size Gravitationally zuleyma e-flowing left pleural effusion. There is a enlarging pleural-based cavitary mass along the right la teral chest wall measuring 2.5 cm transverse by 5 point 5 cm AP. There is an adjacent 2.3 mm calcif ied granuloma. There is a 1.8 cm pleural-based cavitary mass in the lower periphery of the anterior segment of the left upper lobe. Since 05/04/2017 a pleural-based nodular density suspicious for a round infiltrate has developed in the dorsal lateral periphery of the lingula. There are few small consolidative infiltrates in the left lower lobe. There are plate-like areas of atelectasis in the medial aspect of the right lower lobe. There are plate-like densities elsewhere in the lingula. The right diaphragm is elevated. There is a moderate amount of ascites. There is a 3.4 mm calcified granuloma in the right lobe of t he liver. The liver measures 17.6 cm AP which is enlarged. The liver has a nodular border. No art erial phase enhancing hepatic mass or intrahepatic biliary ductal dilatation is identified. The gal lbladder and gallbladder wall are normal. The spleen is normal measuring 11.5 cm AP. The visible portions of the kidneys are normal. The adrenal glands are normal. The pancreas is unremarkable where visualized. The stomach is small and contracted in this is thought to account for gastric wall thickening. There is fecal material in the splenic flexure. The there is a diverticulum arising off the dorsal splenic flexure containing barium. There are degenerative osteophytes in the thoracic and lumbar spine. There are vascular calcificati ons in the coronary arteries. There are confluent ventral osteophytes in the upper mid and lower thoracic spine. IMPRESSION: 1. No central or segmental pulmonary emboli are identified. 2. There are peripheral cavitary lesions in both lungs as described above and consolidative infiltr ate in the left lower lobe associated with partially loculated pleural effusions. Findings may be t he result of a cavitary pneumonia, TB, coccidiomycosis or cryptogenic organizing pneumonia. There ar e patchy ground-glass infiltrates in the lungs. Follow-up imaging is needed to ensure clearing to ex clude cavitary neoplasm/metastasis. 2. Cardiomegaly with atherosclerotic vascular calcifications involving the coronary arteries. 3. Cirrhosis of the liver with ascites no arterial phase enhancing lesion is identified in the live r. 4. Hepatomegaly. 5. Diverticulosis of the splenic flexure. RPTAT:AAJJ Physician Joelle Date Time Electronically viewed and signed by Physician Joelle on 05/07/2017 16:50 PEACE/
[2017-05-07] MEDS ORDERED: COLCHICINE 0.6 MG TAB PO ONE (17:00)
[2017-05-07] MEDS: INSULIN GLARGINE [LANtus] 3 ML PEN SC SCH (20:10)
[2017-05-07] MEDS: ATORVASTATIN 10 MG TAB PO SCH (21:11)
[2017-05-07] MEDS: KETOROLAC 30 MG INJ IV PRN (22:48)
[2017-05-08] VITALS (8 sets, daily range): BP systolic 143–160; BP diastolic 76–82; PULSE 77; RESP 16–20
[2017-05-08] MEDS: VANCOMYCIN 1.5 GM in SOD CHLORIDE 0.9% 250 ML IVPB SCH ×2 (02:00→13:06)
[2017-05-08] MEDS: ACCU-CHEK XX SCH (02:00)
[2017-05-08] MEDS: LEVOFLOXACIN 500 MG TAB PO SCH (06:47)
[2017-05-08 07:16] LABS: ADD SCAN DIFF NO
[2017-05-08 07:34] LABS: BASOPHILS % 0.3 % (0.0-2.0); EOSINOPHILS # 0.2 10^3/ul (0.0-0.5); EOSINOPHILS % 2.6 % (0.0-7.0); HEMATOCRIT 35.5 % (42.0-52.0); HEMOGLOBIN 12.2 g/dl (14.0-18.0); LYMPHOCYTES # 1.4 10^3/ul (0.8-2.9); MEAN CORPUSCULAR HEMOGLOBIN 30.3 pg (29.0-33.0); MEAN CORPUSCULAR HGB CONC 34.4 g/dl (32.0-37.0); MEAN CORPUSCULAR VOLUME 88.3 fl (82.0-101.0); MEAN PLATELET VOLUME 9.8 fl (7.4-10.4); MONOCYTE # 0.7 10^3/ul (0.3-0.9); MONOCYTES % 7.4 % (0.0-11.0); NEUTROPHIL # 6.4 10^3/ul (1.6-7.5); NEUTROPHILS % 72.7 % (39.0-77.0); PLATELET COUNT 196 10^3/UL (140-415); RED BLOOD COUNT 4.02 10^6/ul (4.70-6.10); RED CELL DISTRIBUTION WIDTH 13.9 % (11.5-14.5); WHITE BLOOD COUNT 8.9 10^3/ul (4.8-10.8)
[2017-05-08] MEDS: INSULIN ASPART [NOVOLOG] 3 ML PEN SC SCH ×7 (07:55→20:25)
[2017-05-08 08:06] LABS: CALCIUM 8.2 mg/dl (8.4-10.2); CREATININE 0.75 mg/dl (0.61-1.24); POTASSIUM 3.4 mmol/L (3.5-5.1)
[2017-05-08] MEDS: LOSARTAN 50 MG TAB PO SCH (08:17)
[2017-05-08] MEDS: FAMOTIDINE 20 MG TAB PO SCH ×2 (08:17→20:25)
[2017-05-08] MEDS: DOCUSATE SODIUM 100 MG CAP PO SCH ×2 (08:17→20:25)
[2017-05-08] MEDS: SENNA TAB PO SCH ×2 (08:17→20:25)
[2017-05-08] MEDS: AMLODIPINE 10 MG TAB PO SCH (08:17)
[2017-05-08] MEDS: FUROSEMIDE 40 MG INJ IV SCH (08:18)
--- NOTE | 2017-05-08 10:46 | RADRPT ---
PROCEDURE: XR Chest. CLINICAL INDICATION: pneumonia TECHNIQUE: Single frontal chest x-ray. COMPARISON: 05/03/2017 FINDINGS: There is focal peripheral wedge-shaped consolidation in the right upper lobe unchanged. Bilateral b asilar atelectasis or consolidations are unchanged. There are small bilateral pleural effusions inc reased on the left. . Calcific atherosclerosis of the aorta is present.. The cardiomediastinal gerhard houette is unremarkable. The osseous structures are intact. IMPRESSION: Focal right upper lobe consolidation unchanged. Bilateral basilar atelectasis or consolidations are unchanged. Small bilateral pleural effusions increased on the left.. RPTAT: QQ .Teddy Baltazar MD, Date Time Electronically viewed and signed by .Teddy Baltazar MD, on 05/08/2017 10:46 .L/
--- NOTE | 2017-05-08 11:10 | PN ---
Date/Time of Note Date/Time of Note DATE: 05/08/17 TIME: 11:02 Assessment/Plan VTE Prophylaxis VTE Prophylaxis Intervention: SCD's Lines/Catheters IV [facility]ter Type (from [email or web address] Saline Lock Urinary Cath still in place: No Assessment/Plan Chief Complaint/Hosp Course Assessment and plan 1. Reported viral meningitis. Continue antibiotics. Analgesics as needed. 2. Sepsis secondary to #1. No evidence of shock. on ABX. antipyretics for fever. Improving at present 3. Essential hypertension. Continue antihypertensives and adjust as needed 4. Dyslipidemia. Continue statin medication. Stable at present. 5. Diabetes. A1c at 8.7. Continue insulin regimen. Stable at present. Will adjust as needed. 6. Hepatitis B serology positive. Continue with ID recommendations. 7. Pneumonia. continue with abx. repeat CTA of chest did show: - There are peripheral cavitary lesions in both lungs as described above and consolidative infiltrate in the left lower lobe associated with partially loculated pleural effusions. Findings may be the result of a cavitary pneumonia , TB, coccidiomycosis or cryptogenic organizing pneumonia. There are patchy ground-glass infiltrates in the lungs. f/u with radiologist chief of breast imaging recs. no evidence of dyspnea at this time 8. Left lower extremity swelling. Continue with diuretic. Continue with analgesics DVT prophylaxis: SCDs GERD prophylaxis: H2 devang Disposition and plan: continue abx for pneumonia. Await for clinical improvement. d/c when medically stable and cleared by consultants Discussed plan of care with Dr. Donnelly Problems: Subjective 24 Hr Interval Summary Free Text/Dictation no s/s of distress Exam/Review of Systems Vital Signs Vitals Vital Signs Date Time Temp Pulse Resp B/P Pulse Ox O2 Delivery O2 Flow Rate FiO2 05/08/17 07:17 98.1 72 18 144/77 94 05/04/17 07:33 Nasal Cannula 2.0 Intake and Output 05/07/17 05/07/17 05/08/17 15:00 23:00 07:00 Intake Total 940 ml 850 ml Balance 940 ml 850 ml Exam Constitutional: alert, oriented Psych: no complaints Head: normocephalic Neck: supple Respiratory: no obvious wheezing. 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, nl mental status, nl speech Results Result Diagram: 05/08/17 0620 05/08/17 0620 Results 24 hrs Laboratory Tests Test 05/07/17 12:03 05/07/17 17:31 05/07/17 20:00 05/08/17 06:20 Bedside Glucose 210 83 73 White Blood Count 8.9 Red Blood Count 4.02 L Hemoglobin 12.2 L Hematocrit 35.5 L Mean Corpuscular Volume 88.3 Mean Corpuscular Hemoglobin 30.3 Mean Corpuscular Hemoglobin Concent 34.4 Red Cell Distribution Width 13.9 Platelet Count 196 Mean Platelet Volume 9.8 Neutrophils % 72.7 Lymphocytes % 16.0 Monocytes % 7.4 Eosinophils % 2.6 Basophils % 0.3 Nucleated Red Blood Cells % 0.0 Neutrophils # 6.4 Lymphocytes # 1.4 Monocytes # 0.7 Eosinophils # 0.2 Basophils # 0.0 Nucleated Red Blood Cells # 0.0 Sodium Level 139 Potassium Level 3.4 L Chloride Level 104 Carbon Dioxide Level 26 Anion Gap 12 Blood Urea Nitrogen 6 L Creatinine 0.75 Glucose Level 67 #L Calcium Level 8.2 L Test 05/08/17 07:57 Bedside Glucose 89 Medications Medications Current Medications Hydralazine HCl (Apresoline) 10 mg Q6H PRN IV SBP>160; Start 05/01/17 at 12:00 Ondansetron HCl (Zofran Inj) 4 mg Q6H PRN IV NAUSEA AND/OR VOMITING; Start 05/01 at 12:00 Acetaminophen/ Hydrocodone Bitart ([place] (5/325)) 1 tab Q6H PRN PO PAIN LEVEL 4 -6 Last administered on 05/07/17 17:11; Admin Dose 1 TAB; Start 05/01/17 at 12:00 Famotidine (Pepcid) 20 mg Q12 PO Last administered on 05/08/17 08:17; Admin Dose 20 MG; Start 05/01/17 at 21:00 Insulin Glargine (Lantus) 14 unit DAILY@20 SC Last administered on 05/07/17 20: 10; Admin Dose 14 UNIT; Start 05/01/17 at 20:00 Diagnostic Test (Pha) (Accu-Chek) 1 ea 02 XX ; Start 05/02/17 at 02:00 Losartan Potassium (Cozaar) 50 mg DAILY PO Last administered on 05/08/17 08:17 ; Admin Dose 50 MG; Start 05/02/17 at 09:00 Atorvastatin Calcium (Lipitor) 10 mg HS PO Last administered on 05/07/17 21:11 ; Admin Dose 10 MG; Start 05/01/17 at 21:00 Amlodipine Besylate (Norvasc) 10 mg DAILY PO Last administered on 05/08/17 08: 17; Admin Dose 10 MG; Start 05/02/17 at 09:00 Miscellaneous Information 1 ea NOTE XX ; Start 05/01/17 at 13:00 Glucose (Glutose) 15 gm Q15M PRN PO DECREASED GLUCOSE; Start 05/01/17 at 13:00 Glucose (Glutose) 22.5 gm Q15M PRN PO DECREASED GLUCOSE; Start 05/01/17 at 13:00 Dextrose (D50w Syringe) 25 ml Q15M PRN IV DECREASED GLUCOSE; Start 05/01/17 at 13:00 Dextrose (D50w Syringe) 50 ml Q15M PRN IV DECREASED GLUCOSE; Start 05/01/17 at 13:00 Glucagon (Glucagen) 1 mg Q15M PRN IM DECREASED GLUCOSE; Start 05/01/17 at 13:00 Glucose (Glutose) 15 gm Q15M PRN BUCCAL DECREASED GLUCOSE; Start 05/01/17 at 13: 00 Acetaminophen (Tylenol Tab) 650 mg Q6H PRN PO PAIN AND OR ELEVATED TEMP Last administered on 05/07/17 13:43; Admin Dose 650 MG; Start 05/01/17 at 21:00 Morphine Sulfate (morphine) 3 mg Q3H PRN IV SEVERE PAIN LEVEL 7-10 Last administered on 05/06/17 21:53; Admin Dose 3 MG; Start 05/02/17 at 13:00 Zolpidem Tartrate (Ambien) 5 mg HS PRN PO INSOMNIA Last administered on 20:38; Admin Dose 5 MG; Start 05/02/17 at 18:00 Docusate Sodium (Colace) 100 mg BID PO Last administered on 05/08/17 08:17; Admin Dose 100 MG; Start 05/03/17 at 11:00 Senna (Senokot) 1 tab BID PO Last administered on 05/08/17 08:17; Admin Dose 1 TAB; Start 05/03/17 at 11:00 Levofloxacin 500 mg 500 mg DAILY@06 PO Last administered on 05/08/17 06:47; Admin Dose 500 MG; Start 05/05/17 at 06:00 Ceftriaxone Sodium (Rocephin) 50 ml @ 100 mls/hr Q24H IVPB Last administered on 05/07/17 13:43; Admin Dose 100 MLS/HR; Start 05/05/17 at 13:00 Furosemide 40 mg 40 mg DAILY IV Last administered on 05/08/17 08:18; Admin Dose 40 MG; Start 05/06/17 at 11:00 Vancomycin HCl/ Sodium Chloride (Vancocin/NS) 250 ml @ 83.333 mls/ hr Q12H IVPB Last administered on 05/08/17 02:00; Admin Dose 83.333 MLS/HR; Start 05/07 at 14:00 Ketorolac Tromethamine (Toradol) 30 mg Q6H PRN IV PAIN Last administered on 05/07 22:48; Admin Dose 30 MG; Start 05/07/17 at 17:00; Stop 05/10/17 at 16:59 JEN ELIZABETH May 08, 2017 11:09
[2017-05-08] MEDS: HYDROCODONE/APAP (5/325) TAB PO PRN (12:04)
[2017-05-08] MEDS: CEFTRIAXONE 1 GM/50 ML (PMX) 50 ML IVPB SCH (12:05)
--- NOTE | 2017-05-08 18:56 | CONS ---
Date/Time of Note Date/Time of Note DATE: 05/08/17 TIME: 18:53 Consult Date/Type/Reason Admit Date/Time May 01, 2017 at 10:16 Initial Consult Date 05/04/17 Type of Consultation: Pulm Ordering Provider: DEV MARQUES LABORER [employer] Subjective CT chest reviewed in detaill Objective Vital Signs Date Time Temp Pulse Resp B/P Pulse Ox O2 Delivery O2 Flow Rate FiO2 05/08/17 15:08 98.5 64 18 147/79 97 05/04/17 07:33 Nasal Cannula 2.0 Intake and Output 05/07/17 05/07/17 05/08/17 15:00 23:00 07:00 Intake Total 940 ml 850 ml Balance 940 ml 850 ml Exam HEENT: Neck supple; no JVD; no LAD CVS: RRR, S1 and S2 CHEST: + rhonchi b/l ABD: Soft, NT, + BS EXT: No c/c/e Results/Medications Result Diagram: 05/08/17 0620 05/08/17 0620 Results 24 hrs Laboratory Tests Test 05/07/17 20:00 05/08/17 06:20 05/08/17 07:57 05/08/17 11:35 Bedside Glucose 73 89 131 White Blood Count 8.9 Red Blood Count 4.02 L Hemoglobin 12.2 L Hematocrit 35.5 L Mean Corpuscular Volume 88.3 Mean Corpuscular Hemoglobin 30.3 Mean Corpuscular Hemoglobin Concent 34.4 Red Cell Distribution Width 13.9 Platelet Count 196 Mean Platelet Volume 9.8 Neutrophils % 72.7 Lymphocytes % 16.0 Monocytes % 7.4 Eosinophils % 2.6 Basophils % 0.3 Nucleated Red Blood Cells % 0.0 Neutrophils # 6.4 Lymphocytes # 1.4 Monocytes # 0.7 Eosinophils # 0.2 Basophils # 0.0 Nucleated Red Blood Cells # 0.0 Sodium Level 139 Potassium Level 3.4 L Chloride Level 104 Carbon Dioxide Level 26 Anion Gap 12 Blood Urea Nitrogen 6 L Creatinine 0.75 Glucose Level 67 #L Calcium Level 8.2 L Test 05/08/17 17:59 Bedside Glucose 149 Medications Current Medications Hydralazine HCl (Apresoline) 10 mg Q6H PRN IV SBP>160; Start 05/01/17 at 12:00 Ondansetron HCl (Zofran Inj) 4 mg Q6H PRN IV NAUSEA AND/OR VOMITING; Start 05/01 at 12:00 Acetaminophen/ Hydrocodone Bitart ([place] (5/325)) 1 tab Q6H PRN PO PAIN LEVEL 4 -6 Last administered on 05/08/17 12:04; Admin Dose 1 TAB; Start 05/01/17 at 12: 00 Famotidine (Pepcid) 20 mg Q12 PO Last administered on 05/08/17 08:17; Admin Dose 20 MG; Start 05/01/17 at 21:00 Insulin Glargine (Lantus) 14 unit DAILY@20 SC Last administered on 05/07/17 20: 10; Admin Dose 14 UNIT; Start 05/01/17 at 20:00 Diagnostic Test (Pha) (Accu-Chek) 1 ea 02 XX ; Start 05/02/17 at 02:00 Losartan Potassium (Cozaar) 50 mg DAILY PO Last administered on 05/08/17 08:17 ; Admin Dose 50 MG; Start 05/02/17 at 09:00 Atorvastatin Calcium (Lipitor) 10 mg HS PO Last administered on 05/07/17 21:11 ; Admin Dose 10 MG; Start 05/01/17 at 21:00 Amlodipine Besylate (Norvasc) 10 mg DAILY PO Last administered on 05/08/17 08: 17; Admin Dose 10 MG; Start 05/02/17 at 09:00 Miscellaneous Information 1 ea NOTE XX ; Start 05/01/17 at 13:00 Glucose (Glutose) 15 gm Q15M PRN PO DECREASED GLUCOSE; Start 05/01/17 at 13:00 Glucose (Glutose) 22.5 gm Q15M PRN PO DECREASED GLUCOSE; Start 05/01/17 at 13:00 Dextrose (D50w Syringe) 25 ml Q15M PRN IV DECREASED GLUCOSE; Start 05/01/17 at 13:00 Dextrose (D50w Syringe) 50 ml Q15M PRN IV DECREASED GLUCOSE; Start 05/01/17 at 13:00 Glucagon (Glucagen) 1 mg Q15M PRN IM DECREASED GLUCOSE; Start 05/01/17 at 13:00 Glucose (Glutose) 15 gm Q15M PRN BUCCAL DECREASED GLUCOSE; Start 05/01/17 at 13: 00 Acetaminophen (Tylenol Tab) 650 mg Q6H PRN PO PAIN AND OR ELEVATED TEMP Last administered on 05/07/17 13:43; Admin Dose 650 MG; Start 05/01/17 at 21:00 Morphine Sulfate (morphine) 3 mg Q3H PRN IV SEVERE PAIN LEVEL 7-10 Last administered on 05/06/17 21:53; Admin Dose 3 MG; Start 05/02/17 at 13:00 Zolpidem Tartrate (Ambien) 5 mg HS PRN PO INSOMNIA Last administered on 20:38; Admin Dose 5 MG; Start 05/02/17 at 18:00 Docusate Sodium (Colace) 100 mg BID PO Last administered on 05/08/17 08:17; Admin Dose 100 MG; Start 05/03/17 at 11:00 Senna (Senokot) 1 tab BID PO Last administered on 05/08/17 08:17; Admin Dose 1 TAB; Start 05/03/17 at 11:00 Levofloxacin 500 mg 500 mg DAILY@06 PO Last administered on 05/08/17 06:47; Admin Dose 500 MG; Start 05/05/17 at 06:00 Ceftriaxone Sodium (Rocephin) 50 ml @ 100 mls/hr Q24H IVPB Last administered on 05/08/17 12:05; Admin Dose 100 MLS/HR; Start 05/05/17 at 13:00 Furosemide 40 mg 40 mg DAILY IV Last administered on 05/08/17 08:18; Admin Dose 40 MG; Start 05/06/17 at 11:00 Vancomycin HCl/ Sodium Chloride (Vancocin/NS) 250 ml @ 83.333 mls/ hr Q12H IVPB Last administered on 05/08/17 13:06; Admin Dose 83.333 MLS/HR; Start 05/07 at 14:00 Ketorolac Tromethamine (Toradol) 30 mg Q6H PRN IV PAIN Last administered on 05/07 22:48; Admin Dose 30 MG; Start 05/07/17 at 17:00; Stop 05/10/17 at 16:59 Miscellaneous Information (*Rx Drug Level Order Reminder*) VANCOMYCIN TROUGH AT 0100 ONCE ONCE XX ; Start 05/09/17 at 01:00; Stop 05/09/17 at 01:01 Assessment/Plan Additional Assessment/Plan IMP: 1. Patchy multifocal airspace disease with reverse halo sign on CT, however, NO cavitation. 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 If no improvement on current Rx would suggest bronchoscopy with TBBx DOROTEO IYER MD May 08, 2017 18:56
--- NOTE | 2017-05-08 19:25 | CONS ---
Date/Time of Note Date/Time of Note DATE: 05/08/17 TIME: 19:22 Assessment/Plan Assessment/Plan Chief Complaint/Hosp Course SUBJECTIVE: Alert, feels better, no fevers, L foot swelling and erythema improved, nad MICROBIOLOGY: Blood culture and urine culture on admission grewStaphylococcus aureus, oxacillin sensitive. Cerebrospinal fluid cultures came back negative. Influenza swab also negative. ANTIMICROBIALS: 1. Levaquin. 2. Rocephin. 3. Vanco PHYSICAL EXAMINATION: GENERAL: This is a well-developed, elderly man who is alert, in no distress. HEENT: Head atraumatic, normocephalic. Sclerae anicteric. Buccal mucosa pink. NECK: Supple, trachea midline. CHEST: Rise symmetrical. Breath sounds clear, diminished to bases. HEART: S1, S2. ABDOMEN: Soft, bowel sounds present. EXTREMITIES: Without cyanosis. ASSESSMENT: 1. Sepsis, resolving. 2. Oxacillin-sensitive Staphylococcus aureus urinary tract infection with bacteremia. 3. L foot cellulitis ?gouty arthritis exacerbation . 4. Viral meningitis. 5. 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 HELPER Exam/Review of Systems Vital Signs Vitals Vital Signs Date Time Temp Pulse Resp B/P Pulse Ox O2 Delivery O2 Flow Rate FiO2 05/08/17 15:08 98.5 64 18 147/79 97 05/04/17 07:33 Nasal Cannula 2.0 Intake and Output 05/07/17 05/07/17 05/08/17 15:00 23:00 07:00 Intake Total 940 ml 850 ml Balance 940 ml 850 ml Results Result Diagram: 05/08/17 0620 05/08/17 0620 Results 24 hrs Laboratory Tests Test 05/07/17 20:00 05/08/17 06:20 05/08/17 07:57 05/08/17 11:35 Bedside Glucose 73 89 131 White Blood Count 8.9 Red Blood Count 4.02 L Hemoglobin 12.2 L Hematocrit 35.5 L Mean Corpuscular Volume 88.3 Mean Corpuscular Hemoglobin 30.3 Mean Corpuscular Hemoglobin Concent 34.4 Red Cell Distribution Width 13.9 Platelet Count 196 Mean Platelet Volume 9.8 Neutrophils % 72.7 Lymphocytes % 16.0 Monocytes % 7.4 Eosinophils % 2.6 Basophils % 0.3 Nucleated Red Blood Cells % 0.0 Neutrophils # 6.4 Lymphocytes # 1.4 Monocytes # 0.7 Eosinophils # 0.2 Basophils # 0.0 Nucleated Red Blood Cells # 0.0 Sodium Level 139 Potassium Level 3.4 L Chloride Level 104 Carbon Dioxide Level 26 Anion Gap 12 Blood Urea Nitrogen 6 L Creatinine 0.75 Glucose Level 67 #L Calcium Level 8.2 L Test 05/08/17 17:59 Bedside Glucose 149 Medications Medications Current Medications Hydralazine HCl (Apresoline) 10 mg Q6H PRN IV SBP>160; Start 05/01/17 at 12:00 Ondansetron HCl (Zofran Inj) 4 mg Q6H PRN IV NAUSEA AND/OR VOMITING; Start 05/01 at 12:00 Acetaminophen/ Hydrocodone Bitart ([place] (5/325)) 1 tab Q6H PRN PO PAIN LEVEL 4 -6 Last administered on 05/08/17 12:04; Admin Dose 1 TAB; Start 05/01/17 at 12: 00 Famotidine (Pepcid) 20 mg Q12 PO Last administered on 05/08/17 08:17; Admin Dose 20 MG; Start 05/01/17 at 21:00 Insulin Glargine (Lantus) 14 unit DAILY@20 SC Last administered on 05/07/17 20: 10; Admin Dose 14 UNIT; Start 05/01/17 at 20:00 Diagnostic Test (Pha) (Accu-Chek) 1 ea 02 XX ; Start 05/02/17 at 02:00 Losartan Potassium (Cozaar) 50 mg DAILY PO Last administered on 05/08/17 08:17 ; Admin Dose 50 MG; Start 05/02/17 at 09:00 Atorvastatin Calcium (Lipitor) 10 mg HS PO Last administered on 05/07/17 21:11 ; Admin Dose 10 MG; Start 05/01/17 at 21:00 Amlodipine Besylate (Norvasc) 10 mg DAILY PO Last administered on 05/08/17 08: 17; Admin Dose 10 MG; Start 05/02/17 at 09:00 Miscellaneous Information 1 ea NOTE XX ; Start 05/01/17 at 13:00 Glucose (Glutose) 15 gm Q15M PRN PO DECREASED GLUCOSE; Start 05/01/17 at 13:00 Glucose (Glutose) 22.5 gm Q15M PRN PO DECREASED GLUCOSE; Start 05/01/17 at 13:00 Dextrose (D50w Syringe) 25 ml Q15M PRN IV DECREASED GLUCOSE; Start 05/01/17 at 13:00 Dextrose (D50w Syringe) 50 ml Q15M PRN IV DECREASED GLUCOSE; Start 05/01/17 at 13:00 Glucagon (Glucagen) 1 mg Q15M PRN IM DECREASED GLUCOSE; Start 05/01/17 at 13:00 Glucose (Glutose) 15 gm Q15M PRN BUCCAL DECREASED GLUCOSE; Start 05/01/17 at 13: 00 Acetaminophen (Tylenol Tab) 650 mg Q6H PRN PO PAIN AND OR ELEVATED TEMP Last administered on 05/07/17 13:43; Admin Dose 650 MG; Start 05/01/17 at 21:00 Morphine Sulfate (morphine) 3 mg Q3H PRN IV SEVERE PAIN LEVEL 7-10 Last administered on 05/06/17 21:53; Admin Dose 3 MG; Start 05/02/17 at 13:00 Zolpidem Tartrate (Ambien) 5 mg HS PRN PO INSOMNIA Last administered on 20:38; Admin Dose 5 MG; Start 05/02/17 at 18:00 Docusate Sodium (Colace) 100 mg BID PO Last administered on 05/08/17 08:17; Admin Dose 100 MG; Start 05/03/17 at 11:00 Senna (Senokot) 1 tab BID PO Last administered on 05/08/17 08:17; Admin Dose 1 TAB; Start 05/03/17 at 11:00 Levofloxacin 500 mg 500 mg DAILY@06 PO Last administered on 05/08/17 06:47; Admin Dose 500 MG; Start 05/05/17 at 06:00 Ceftriaxone Sodium (Rocephin) 50 ml @ 100 mls/hr Q24H IVPB Last administered on 05/08/17 12:05; Admin Dose 100 MLS/HR; Start 05/05/17 at 13:00 Furosemide 40 mg 40 mg DAILY IV Last administered on 05/08/17 08:18; Admin Dose 40 MG; Start 05/06/17 at 11:00 Vancomycin HCl/ Sodium Chloride (Vancocin/NS) 250 ml @ 83.333 mls/ hr Q12H IVPB Last administered on 05/08/17 13:06; Admin Dose 83.333 MLS/HR; Start 05/07 at 14:00 Ketorolac Tromethamine (Toradol) 30 mg Q6H PRN IV PAIN Last administered on 05/07 22:48; Admin Dose 30 MG; Start 05/07/17 at 17:00; Stop 05/10/17 at 16:59 Miscellaneous Information (*Rx Drug Level Order Reminder*) VANCOMYCIN TROUGH AT 0100 ONCE ONCE XX ; Start 05/09/17 at 01:00; Stop 05/09/17 at 01:01 MEMO AYON NP May 08, 2017 19:25
[2017-05-08] MEDS: ATORVASTATIN 10 MG TAB PO SCH (20:25)
[2017-05-08] MEDS: KETOROLAC 30 MG INJ IV PRN (20:26)
[2017-05-08] MEDS: INSULIN GLARGINE [LANtus] 3 ML PEN SC SCH (20:28)
[2017-05-09] MEDS: ACCU-CHEK XX SCH (02:00)
[2017-05-09] MEDS: VANCOMYCIN 1.5 GM in SOD CHLORIDE 0.9% 250 ML IVPB SCH ×2 (02:26→15:56)
[2017-05-09] MEDS: LEVOFLOXACIN 500 MG TAB PO SCH (05:44)
[2017-05-09 06:13] LABS: ADD SCAN DIFF NO
[2017-05-09 06:21] LABS: BASOPHILS % 0.2 % (0.0-2.0); EOSINOPHILS # 0.2 10^3/ul (0.0-0.5); EOSINOPHILS % 2.5 % (0.0-7.0); HEMATOCRIT 38.4 % (42.0-52.0); LYMPHOCYTES # 1.7 10^3/ul (0.8-2.9); LYMPHOCYTES % 19.6 % (15.0-51.0); MEAN CORPUSCULAR HEMOGLOBIN 30.1 pg (29.0-33.0); MEAN CORPUSCULAR HGB CONC 33.9 g/dl (32.0-37.0); MEAN CORPUSCULAR VOLUME 88.9 fl (82.0-101.0); MEAN PLATELET VOLUME 9.9 fl (7.4-10.4); MONOCYTE # 0.7 10^3/ul (0.3-0.9); MONOCYTES % 7.8 % (0.0-11.0); PLATELET COUNT 232 10^3/UL (140-415); RED BLOOD COUNT 4.32 10^6/ul (4.70-6.10); RED CELL DISTRIBUTION WIDTH 14.3 % (11.5-14.5); WHITE BLOOD COUNT 8.6 10^3/ul (4.8-10.8)
[2017-05-09 06:59] LABS: CALCIUM 8.4 mg/dl (8.4-10.2); CREATININE 0.83 mg/dl (0.61-1.24); POTASSIUM 3.4 mmol/L (3.5-5.1)
[2017-05-09 08:07] VITALS: BP 151/81; RESP 18
[2017-05-09] MEDS: INSULIN ASPART [NOVOLOG] 3 ML PEN SC SCH ×7 (08:13→20:26)
[2017-05-09] MEDS: HYDROCODONE/APAP (5/325) TAB PO PRN ×2 (08:14→15:06)
[2017-05-09] MEDS: FAMOTIDINE 20 MG TAB PO SCH ×2 (08:14→20:26)
[2017-05-09] MEDS: DOCUSATE SODIUM 100 MG CAP PO SCH ×2 (08:14→20:26)
[2017-05-09] MEDS: FUROSEMIDE 40 MG INJ IV SCH (08:14)
[2017-05-09] MEDS: AMLODIPINE 10 MG TAB PO SCH (08:14)
[2017-05-09] MEDS: LOSARTAN 50 MG TAB PO SCH (08:14)
[2017-05-09] MEDS: SENNA TAB PO SCH ×2 (08:14→20:26)
--- NOTE | 2017-05-09 10:00 | PN ---
Date/Time of Note Date/Time of Note DATE: 05/09/17 TIME: 09:54 Assessment/Plan VTE Prophylaxis VTE Prophylaxis Intervention: SCD's Lines/Catheters IV [facility]from [facility] Urinary Cath still in place: No Assessment/Plan Chief Complaint/Hosp Course Assessment and plan 1. Reported viral meningitis. Continue antibiotics. Analgesics as needed. stable at present 2. Sepsis secondary to #1. No evidence of shock. on ABX. antipyretics for fever. Improving at present 3. Essential hypertension. Continue antihypertensives and adjust as needed 4. Dyslipidemia. Continue statin medication. Stable at present. 5. Diabetes. A1c at 8.7. Continue insulin regimen. Stable at present. Will adjust as needed. 6. Hepatitis B serology positive. Continue with ID recommendations. 7. Pneumonia. continue with abx. repeat CTA of chest did show: - There are peripheral cavitary lesions in both lungs as described above and consolidative infiltrate in the left lower lobe associated with partially loculated pleural effusions. Findings may be the result of a cavitary pneumonia , TB, coccidiomycosis or cryptogenic organizing pneumonia. There are patchy ground-glass infiltrates in the lungs. May need bronchoscopy should patient have poor response with abx per cash grain grower recs . 8. Left lower extremity swelling. continue with analgesics. check left ankle xray DVT prophylaxis: SCDs GERD prophylaxis: H2 devang Disposition and plan: May need possible bronchoscopy should patient fail antibiotic therapy. Follow-up x-ray of left lower extremity. Continue with ID recommendations for antibiotic regimen. Await for clinical improvement Discussed plan of care with Dr. Donnelly Problems: Subjective 24 Hr Interval Summary Free Text/Dictation Still reports having some left lower extremity swelling. Denies any chest pain or shortness of breath at this time. Exam/Review of Systems Vital Signs Vitals Vital Signs Date Time Temp Pulse Resp B/P Pulse Ox O2 Delivery O2 Flow Rate FiO2 05/09/17 08:07 98.2 82 18 151/81 95 05/08/17 23:19 Room Air Intake and Output 05/08/17 05/08/17 05/09/17 15:00 23:00 07:00 Intake Total 1150 ml 250 ml Output Total 400 ml Balance 1150 ml -150 ml Exam Constitutional: alert, oriented Psych: nl mood/affect Head: normocephalic Neck: supple Respiratory: diminished breath sounds (at bases), normal air movement Cardiovascular: regular rate and rhythm Gastrointestinal: non-tender, soft Extremities: edema (LLE ) Neurological: GRANITE COUNTERTOP INSTALLER II-XII intact, nl mental status, nl speech Results Result Diagram: 05/09/1713 05/09/17 0513 Results 24 hrs Laboratory Tests Test 05/08/17 11:35 05/08/17 17:59 05/08/17 20:24 05/09/17 01:00 Bedside Glucose 131 149 115 Vancomycin Level Trough 12.2 Test 05/09/17 05:13 05/09/17 08:00 White Blood Count 8.6 Red Blood Count 4.32 L Hemoglobin 13.0 L Hematocrit 38.4 L Mean Corpuscular Volume 88.9 Mean Corpuscular Hemoglobin 30.1 Mean Corpuscular Hemoglobin Concent 33.9 Red Cell Distribution Width 14.3 Platelet Count 232 Mean Platelet Volume 9.9 Neutrophils % 69.0 Lymphocytes % 19.6 Monocytes % 7.8 Eosinophils % 2.5 Basophils % 0.2 Nucleated Red Blood Cells % 0.0 Neutrophils # 6.0 Lymphocytes # 1.7 Monocytes # 0.7 Eosinophils # 0.2 Basophils # 0.0 Nucleated Red Blood Cells # 0.0 Sodium Level 142 Potassium Level 3.4 L Chloride Level 105 Carbon Dioxide Level 27 Anion Gap 13 Blood Urea Nitrogen 8 Creatinine 0.83 Glucose Level 78 Calcium Level 8.4 Bedside Glucose 93 Medications Medications Current Medications Hydralazine HCl (Apresoline) 10 mg Q6H PRN IV SBP>160; Start 05/01/17 at 12:00 Ondansetron HCl (Zofran Inj) 4 mg Q6H PRN IV NAUSEA AND/OR VOMITING; Start 05/01 at 12:00 Acetaminophen/ Hydrocodone Bitart ([place] (5/325)) 1 tab Q6H PRN PO PAIN LEVEL 4 -6 Last administered on 05/09/17 08:14; Admin Dose 1 TAB; Start 05/01/17 at 12: 00 Famotidine (Pepcid) 20 mg Q12 PO Last administered on 05/09/17 08:14; Admin Dose 20 MG; Start 05/01/17 at 21:00 Insulin Glargine (Lantus) 14 unit DAILY@20 SC Last administered on 05/08/17 20 :28; Admin Dose 14 UNIT; Start 05/01/17 at 20:00 Diagnostic Test (Pha) (Accu-Chek) 1 ea 02 XX ; Start 05/02/17 at 02:00 Losartan Potassium (Cozaar) 50 mg DAILY PO Last administered on 05/09/17 08:14 ; Admin Dose 50 MG; Start 05/02/17 at 09:00 Atorvastatin Calcium (Lipitor) 10 mg HS PO Last administered on 05/08/17 20:25 ; Admin Dose 10 MG; Start 05/01/17 at 21:00 Amlodipine Besylate (Norvasc) 10 mg DAILY PO Last administered on 05/09/17 08: 14; Admin Dose 10 MG; Start 05/02/17 at 09:00 Miscellaneous Information 1 ea NOTE XX ; Start 05/01/17 at 13:00 Glucose (Glutose) 15 gm Q15M PRN PO DECREASED GLUCOSE; Start 05/01/17 at 13:00 Glucose (Glutose) 22.5 gm Q15M PRN PO DECREASED GLUCOSE; Start 05/01/17 at 13:00 Dextrose (D50w Syringe) 25 ml Q15M PRN IV DECREASED GLUCOSE; Start 05/01/17 at 13:00 Dextrose (D50w Syringe) 50 ml Q15M PRN IV DECREASED GLUCOSE; Start 05/01/17 at 13:00 Glucagon (Glucagen) 1 mg Q15M PRN IM DECREASED GLUCOSE; Start 05/01/17 at 13:00 Glucose (Glutose) 15 gm Q15M PRN BUCCAL DECREASED GLUCOSE; Start 05/01/17 at 13: 00 Acetaminophen (Tylenol Tab) 650 mg Q6H PRN PO PAIN AND OR ELEVATED TEMP Last administered on 05/07/17 13:43; Admin Dose 650 MG; Start 05/01/17 at 21:00 Morphine Sulfate (morphine) 3 mg Q3H PRN IV SEVERE PAIN LEVEL 7-10 Last administered on 05/06/17 21:53; Admin Dose 3 MG; Start 05/02/17 at 13:00 Zolpidem Tartrate (Ambien) 5 mg HS PRN PO INSOMNIA Last administered on 20:38; Admin Dose 5 MG; Start 05/02/17 at 18:00 Docusate Sodium (Colace) 100 mg BID PO Last administered on 05/09/17 08:14; Admin Dose 100 MG; Start 05/03/17 at 11:00 Senna (Senokot) 1 tab BID PO Last administered on 05/09/17 08:14; Admin Dose 1 TAB; Start 05/03/17 at 11:00 Levofloxacin 500 mg 500 mg DAILY@06 PO Last administered on 05/09/17 05:44; Admin Dose 500 MG; Start 05/05/17 at 06:00 Ceftriaxone Sodium (Rocephin) 50 ml @ 100 mls/hr Q24H IVPB Last administered on 05/08/17 12:05; Admin Dose 100 MLS/HR; Start 05/05/17 at 13:00 Furosemide 40 mg 40 mg DAILY IV Last administered on 05/09/17 08:14; Admin Dose 40 MG; Start 05/06/17 at 11:00 Vancomycin HCl/ Sodium Chloride (Vancocin/NS) 250 ml @ 83.333 mls/ hr Q12H IVPB Last administered on 05/09/17 02:26; Admin Dose 83.333 MLS/HR; Start 05/07 at 14:00 Ketorolac Tromethamine (Toradol) 30 mg Q6H PRN IV PAIN Last administered on 20:26; Admin Dose 30 MG; Start 05/07/17 at 17:00; Stop 05/10/17 at 16:59 JEN ELIZABETH May 09, 2017 10:00
[2017-05-09] MEDS: CEFTRIAXONE 1 GM/50 ML (PMX) 50 ML IVPB SCH (12:01)
--- NOTE | 2017-05-09 12:58 | RADRPT ---
PROCEDURE: XR Left Ankle. CLINICAL INDICATION: Pain and swelling. TECHNIQUE: AP, oblique and lateral views of the left ankle were performed. COMPARISON: None. FINDINGS: There is a suggestion of soft tissue swelling around the circumference of the ankle. There is a ginette ign bone island in the distal metaphysis of the left tibia. Ankle mortise is normal. IMPRESSION: 1. Soft tissue swelling around the circumference of the left ankle. 2. Benign bone island in the distal metaphysis of the left tibia. RPTAT:AAJJ Physician Joelle Date Time Electronically viewed and signed by Louis Fagan Physician on 05/09/2017 12:57 [place]/
--- NOTE | 2017-05-09 17:29 | CONS ---
Date/Time of Note Date/Time of Note DATE: 05/09/17 TIME: 17:28 Consult Date/Type/Reason Admit Date/Time May 01, 2017 at 10:16 Initial Consult Date 05/04/17 Type of Consultation: Pulm Ordering Provider: DEV MARQUES VISUAL SUPERVISOR Subjective No overnight events. Objective Vital Signs Date Time Temp Pulse Resp B/P Pulse Ox O2 Delivery O2 Flow Rate FiO2 05/09/17 08:07 98.2 82 18 151/81 95 05/08/17 23:19 Room Air Intake and Output 05/08/17 05/08/17 05/09/17 15:00 23:00 07:00 Intake Total 1150 ml 250 ml Output Total 400 ml Balance 1150 ml -150 ml Exam HEENT: Neck supple; no JVD; no LAD CVS: RRR, S1 and S2 CHEST: + rhonchi b/l ABD: Soft, NT, + BS EXT: No c/c/e Results/Medications Result Diagram: 05/09/17 0513 05/09/17 0513 Results 24 hrs Laboratory Tests Test 05/08/17 17:59 05/08/17 20:24 05/09/17 01:00 05/09/17 05:13 Bedside Glucose 149 115 Vancomycin Level Trough 12.2 White Blood Count 8.6 Red Blood Count 4.32 L Hemoglobin 13.0 L Hematocrit 38.4 L Mean Corpuscular Volume 88.9 Mean Corpuscular Hemoglobin 30.1 Mean Corpuscular Hemoglobin Concent 33.9 Red Cell Distribution Width 14.3 Platelet Count 232 Mean Platelet Volume 9.9 Neutrophils % 69.0 Lymphocytes % 19.6 Monocytes % 7.8 Eosinophils % 2.5 Basophils % 0.2 Nucleated Red Blood Cells % 0.0 Neutrophils # 6.0 Lymphocytes # 1.7 Monocytes # 0.7 Eosinophils # 0.2 Basophils # 0.0 Nucleated Red Blood Cells # 0.0 Sodium Level 142 Potassium Level 3.4 L Chloride Level 105 Carbon Dioxide Level 27 Anion Gap 13 Blood Urea Nitrogen 8 Creatinine 0.83 Glucose Level 78 Calcium Level 8.4 Test 05/09/17 08:00 05/09/17 12:01 05/09/17 17:11 Bedside Glucose 93 102 130 Medications Current Medications Hydralazine HCl (Apresoline) 10 mg Q6H PRN IV SBP>160; Start 05/01/17 at 12:00 Ondansetron HCl (Zofran Inj) 4 mg Q6H PRN IV NAUSEA AND/OR VOMITING; Start 05/01 at 12:00 Acetaminophen/ Hydrocodone Bitart ([place] (5/325)) 1 tab Q6H PRN PO PAIN LEVEL 4 -6 Last administered on 05/09/17 15:06; Admin Dose 1 TAB; Start 05/01/17 at 12: 00 Famotidine (Pepcid) 20 mg Q12 PO Last administered on 05/09/17 08:14; Admin Dose 20 MG; Start 05/01/17 at 21:00 Insulin Glargine (Lantus) 14 unit DAILY@20 SC Last administered on 05/08/17 20 :28; Admin Dose 14 UNIT; Start 05/01/17 at 20:00 Diagnostic Test (Pha) (Accu-Chek) 1 ea 02 XX ; Start 05/02/17 at 02:00 Losartan Potassium (Cozaar) 50 mg DAILY PO Last administered on 05/09/17 08:14 ; Admin Dose 50 MG; Start 05/02/17 at 09:00 Atorvastatin Calcium (Lipitor) 10 mg HS PO Last administered on 05/08/17 20:25 ; Admin Dose 10 MG; Start 05/01/17 at 21:00 Amlodipine Besylate (Norvasc) 10 mg DAILY PO Last administered on 05/09/17 08: 14; Admin Dose 10 MG; Start 05/02/17 at 09:00 Miscellaneous Information 1 ea NOTE XX ; Start 05/01/17 at 13:00 Glucose (Glutose) 15 gm Q15M PRN PO DECREASED GLUCOSE; Start 05/01/17 at 13:00 Glucose (Glutose) 22.5 gm Q15M PRN PO DECREASED GLUCOSE; Start 05/01/17 at 13:00 Dextrose (D50w Syringe) 25 ml Q15M PRN IV DECREASED GLUCOSE; Start 05/01/17 at 13:00 Dextrose (D50w Syringe) 50 ml Q15M PRN IV DECREASED GLUCOSE; Start 05/01/17 at 13:00 Glucagon (Glucagen) 1 mg Q15M PRN IM DECREASED GLUCOSE; Start 05/01/17 at 13:00 Glucose (Glutose) 15 gm Q15M PRN BUCCAL DECREASED GLUCOSE; Start 05/01/17 at 13: 00 Acetaminophen (Tylenol Tab) 650 mg Q6H PRN PO PAIN AND OR ELEVATED TEMP Last administered on 05/07/17 13:43; Admin Dose 650 MG; Start 05/01/17 at 21:00 Morphine Sulfate (morphine) 3 mg Q3H PRN IV SEVERE PAIN LEVEL 7-10 Last administered on 05/06/17 21:53; Admin Dose 3 MG; Start 05/02/17 at 13:00 Zolpidem Tartrate (Ambien) 5 mg HS PRN PO INSOMNIA Last administered on 20:38; Admin Dose 5 MG; Start 05/02/17 at 18:00 Docusate Sodium (Colace) 100 mg BID PO Last administered on 05/09/17 08:14; Admin Dose 100 MG; Start 05/03/17 at 11:00 Senna (Senokot) 1 tab BID PO Last administered on 05/09/17 08:14; Admin Dose 1 TAB; Start 05/03/17 at 11:00 Levofloxacin 500 mg 500 mg DAILY@06 PO Last administered on 05/09/17 05:44; Admin Dose 500 MG; Start 05/05/17 at 06:00 Ceftriaxone Sodium (Rocephin) 50 ml @ 100 mls/hr Q24H IVPB Last administered on 05/09/17 12:01; Admin Dose 100 MLS/HR; Start 05/05/17 at 13:00 Furosemide 40 mg 40 mg DAILY IV Last administered on 05/09/17 08:14; Admin Dose 40 MG; Start 05/06/17 at 11:00 Vancomycin HCl/ Sodium Chloride (Vancocin/NS) 250 ml @ 83.333 mls/ hr Q12H IVPB Last administered on 05/09/17 15:56; Admin Dose 83.333 MLS/HR; Start 05/07 at 14:00 Ketorolac Tromethamine (Toradol) 30 mg Q6H PRN IV PAIN Last administered on 20:26; Admin Dose 30 MG; Start 05/07/17 at 17:00; Stop 05/10/17 at 16:59 Assessment/Plan Additional Assessment/Plan IMP: 1. Patchy multifocal airspace disease with reverse halo sign on CT, however, NO cavitation. Considerations would include fungal causes such as crypto, atypical bacterial causes, mycobacteria and EGG WORKER RECS: 1. If no improvement on current Rx would suggest bronchoscopy with TBBx 2. F/U CXR in 2-3 days 3. Abx per DOROTEO COX MD May 09, 2017 17:29
[2017-05-09] MEDS ORDERED: NICOTINE (21 MG/24 HR) PATCH TRANSDERM SCH (20:00)
[2017-05-09] MEDS ORDERED: LORAZEPAM 2 MG INJ IV PRN (20:00)
[2017-05-09 20:02] VITALS: BP 163/83; RESP 22
[2017-05-09] MEDS: ATORVASTATIN 10 MG TAB PO SCH (20:26)
--- NOTE | 2017-05-09 20:48 | CONS ---
Date/Time of Note Date/Time of Note DATE: 05/09/17 TIME: 20:47 Assessment/Plan Assessment/Plan Chief Complaint/Hosp Course SUBJECTIVE: Alert, feels better, no fevers MICROBIOLOGY: Blood culture and urine culture on admission grew Staphylococcus aureus, oxacillin sensitive. Cerebrospinal fluid cultures came back negative. Influenza swab also negative. ANTIMICROBIALS: 1. Levaquin. 2. Rocephin. 3. Vanco PHYSICAL EXAMINATION: GENERAL: This is a well-developed, elderly man who is alert, in no distress. HEENT: Head atraumatic, normocephalic. Sclerae anicteric. Buccal mucosa pink. NECK: Supple, trachea midline. CHEST: Rise symmetrical. Breath sounds clear, diminished to bases. HEART: S1, S2. ABDOMEN: Soft, bowel sounds present. EXTREMITIES: Without cyanosis. ASSESSMENT: 1. Sepsis, resolving. 2. Oxacillin-sensitive Staphylococcus aureus urinary tract infection with bacteremia. 3. L foot cellulitis ===> improving . 4. Viral meningitis. 5. Pneumonia ==> s/p repeat CT==> pulmonary rec-s noted PLAN: Clinically stable, continue abx, may need bronchoscopy DW staff Problems: Consultation Date/Type/Reason Admit Date/Time May 01, 2017 at 10:16 Initial Consult Date 05/04/17 Type of Consultation: ID Referring Provider: DEV MARQUES NURSING TECH Exam/Review of Systems Vital Signs Vitals Vital Signs Date Time Temp Pulse Resp B/P Pulse Ox O2 Delivery O2 Flow Rate FiO2 05/09/17 20:02 98.9 78 22 163/83 93 05/08/17 23:19 Room Air Intake and Output 05/08/17 05/08/17 05/09/17 15:00 23:00 07:00 Intake Total 1150 ml 250 ml Output Total 400 ml Balance 1150 ml -150 ml Results Result Diagram: 05/09/17 0513 05/09/17 0513 Results 24 hrs Laboratory Tests Test 05/09/17 01:00 05/09/17 05:13 05/09/17 08:00 05/09/17 12:01 Vancomycin Level Trough 12.2 White Blood Count 8.6 Red Blood Count 4.32 L Hemoglobin 13.0 L Hematocrit 38.4 L Mean Corpuscular Volume 88.9 Mean Corpuscular Hemoglobin 30.1 Mean Corpuscular Hemoglobin Concent 33.9 Red Cell Distribution Width 14.3 Platelet Count 232 Mean Platelet Volume 9.9 Neutrophils % 69.0 Lymphocytes % 19.6 Monocytes % 7.8 Eosinophils % 2.5 Basophils % 0.2 Nucleated Red Blood Cells % 0.0 Neutrophils # 6.0 Lymphocytes # 1.7 Monocytes # 0.7 Eosinophils # 0.2 Basophils # 0.0 Nucleated Red Blood Cells # 0.0 Sodium Level 142 Potassium Level 3.4 L Chloride Level 105 Carbon Dioxide Level 27 Anion Gap 13 Blood Urea Nitrogen 8 Creatinine 0.83 Glucose Level 78 Calcium Level 8.4 Bedside Glucose 93 102 Test 05/09/17 17:11 05/09/17 20:25 Bedside Glucose 130 171 Medications Medications Current Medications Hydralazine HCl (Apresoline) 10 mg Q6H PRN IV SBP>160; Start 05/01/17 at 12:00 Ondansetron HCl (Zofran Inj) 4 mg Q6H PRN IV NAUSEA AND/OR VOMITING; Start 05/01 at 12:00 Acetaminophen/ Hydrocodone Bitart ([place] (5/325)) 1 tab Q6H PRN PO PAIN LEVEL 4 -6 Last administered on 05/09/17 15:06; Admin Dose 1 TAB; Start 05/01/17 at 12: 00 Famotidine (Pepcid) 20 mg Q12 PO Last administered on 05/09/17 08:14; Admin Dose 20 MG; Start 05/01/17 at 21:00 Insulin Glargine (Lantus) 14 unit DAILY@20 SC Last administered on 05/08/17 20 :28; Admin Dose 14 UNIT; Start 05/01/17 at 20:00 Diagnostic Test (Pha) (Accu-Chek) 1 ea 02 XX ; Start 05/02/17 at 02:00 Losartan Potassium (Cozaar) 50 mg DAILY PO Last administered on 05/09/17 08:14 ; Admin Dose 50 MG; Start 05/02/17 at 09:00 Atorvastatin Calcium (Lipitor) 10 mg HS PO Last administered on 05/08/17 20:25 ; Admin Dose 10 MG; Start 05/01/17 at 21:00 Amlodipine Besylate (Norvasc) 10 mg DAILY PO Last administered on 05/09/17 08: 14; Admin Dose 10 MG; Start 05/02/17 at 09:00 Miscellaneous Information 1 ea NOTE XX ; Start 05/01/17 at 13:00 Glucose (Glutose) 15 gm Q15M PRN PO DECREASED GLUCOSE; Start 05/01/17 at 13:00 Glucose (Glutose) 22.5 gm Q15M PRN PO DECREASED GLUCOSE; Start 05/01/17 at 13:00 Dextrose (D50w Syringe) 25 ml Q15M PRN IV DECREASED GLUCOSE; Start 05/01/17 at 13:00 Dextrose (D50w Syringe) 50 ml Q15M PRN IV DECREASED GLUCOSE; Start 05/01/17 at 13:00 Glucagon (Glucagen) 1 mg Q15M PRN IM DECREASED GLUCOSE; Start 05/01/17 at 13:00 Glucose (Glutose) 15 gm Q15M PRN BUCCAL DECREASED GLUCOSE; Start 05/01/17 at 13: 00 Acetaminophen (Tylenol Tab) 650 mg Q6H PRN PO PAIN AND OR ELEVATED TEMP Last administered on 05/07/17 13:43; Admin Dose 650 MG; Start 05/01/17 at 21:00 Morphine Sulfate (morphine) 3 mg Q3H PRN IV SEVERE PAIN LEVEL 7-10 Last administered on 05/06/17 21:53; Admin Dose 3 MG; Start 05/02/17 at 13:00 Zolpidem Tartrate (Ambien) 5 mg HS PRN PO INSOMNIA Last administered on 20:38; Admin Dose 5 MG; Start 05/02/17 at 18:00 Docusate Sodium (Colace) 100 mg BID PO Last administered on 05/09/17 08:14; Admin Dose 100 MG; Start 05/03/17 at 11:00 Senna (Senokot) 1 tab BID PO Last administered on 05/09/17 08:14; Admin Dose 1 TAB; Start 05/03/17 at 11:00 Levofloxacin 500 mg 500 mg DAILY@06 PO Last administered on 05/09/17 05:44; Admin Dose 500 MG; Start 05/05/17 at 06:00 Ceftriaxone Sodium (Rocephin) 50 ml @ 100 mls/hr Q24H IVPB Last administered on 05/09/17 12:01; Admin Dose 100 MLS/HR; Start 05/05/17 at 13:00 Furosemide 40 mg 40 mg DAILY IV Last administered on 05/09/17 08:14; Admin Dose 40 MG; Start 05/06/17 at 11:00 Vancomycin HCl/ Sodium Chloride (Vancocin/NS) 250 ml @ 83.333 mls/ hr Q12H IVPB Last administered on 05/09/17 15:56; Admin Dose 83.333 MLS/HR; Start 05/07 at 14:00 Ketorolac Tromethamine (Toradol) 30 mg Q6H PRN IV PAIN Last administered on 20:26; Admin Dose 30 MG; Start 05/07/17 at 17:00; Stop 05/10/17 at 16:59 MEMO AYON NP May 09, 2017 20:48
[2017-05-09] MEDS: KETOROLAC 30 MG INJ IV PRN (21:44)
[2017-05-09] MEDS: INSULIN GLARGINE [LANtus] 3 ML PEN SC SCH (22:03)
[2017-05-10] MEDS: ACCU-CHEK XX SCH (02:00)
[2017-05-10] MEDS: VANCOMYCIN 1.5 GM in SOD CHLORIDE 0.9% 250 ML IVPB SCH ×2 (04:19→16:24)
[2017-05-10] MEDS: LEVOFLOXACIN 500 MG TAB PO SCH (05:41)
[2017-05-10] MEDS: KETOROLAC 30 MG INJ IV PRN (05:44)
[2017-05-10 05:48] LABS: ADD SCAN DIFF NO
[2017-05-10 06:05] LABS: BASOPHILS % 0.4 % (0.0-2.0); EOSINOPHILS # 0.2 10^3/ul (0.0-0.5); EOSINOPHILS % 3.1 % (0.0-7.0); HEMATOCRIT 34.1 % (42.0-52.0); HEMOGLOBIN 11.5 g/dl (14.0-18.0); LYMPHOCYTES # 1.6 10^3/ul (0.8-2.9); LYMPHOCYTES % 20.8 % (15.0-51.0); MEAN CORPUSCULAR HEMOGLOBIN 29.9 pg (29.0-33.0); MEAN CORPUSCULAR HGB CONC 33.7 g/dl (32.0-37.0); MEAN CORPUSCULAR VOLUME 88.8 fl (82.0-101.0); MEAN PLATELET VOLUME 9.7 fl (7.4-10.4); MONOCYTE # 0.7 10^3/ul (0.3-0.9); MONOCYTES % 9.6 % (0.0-11.0); NEUTROPHILS % 65.1 % (39.0-77.0); PLATELET COUNT 220 10^3/UL (140-415); RED BLOOD COUNT 3.84 10^6/ul (4.70-6.10); WHITE BLOOD COUNT 7.7 10^3/ul (4.8-10.8)
[2017-05-10 06:26] LABS: CALCIUM 8.3 mg/dl (8.4-10.2); CREATININE 0.85 mg/dl (0.61-1.24); POTASSIUM 3.4 mmol/L (3.5-5.1)
[2017-05-10 07:53] VITALS: BP 151/76; RESP 20
[2017-05-10] MEDS: INSULIN ASPART [NOVOLOG] 3 ML PEN SC SCH ×7 (07:57→21:00)
[2017-05-10] MEDS: FUROSEMIDE 40 MG INJ IV SCH (07:57)
[2017-05-10] MEDS: AMLODIPINE 10 MG TAB PO SCH (07:57)
[2017-05-10] MEDS: LOSARTAN 50 MG TAB PO SCH (07:58)
[2017-05-10] MEDS: SENNA TAB PO SCH ×2 (07:58→21:26)
[2017-05-10] MEDS: DOCUSATE SODIUM 100 MG CAP PO SCH ×2 (07:58→21:26)
[2017-05-10] MEDS: FAMOTIDINE 20 MG TAB PO SCH ×2 (07:58→21:26)
[2017-05-10] MEDS: CEFTRIAXONE 1 GM/50 ML (PMX) 50 ML IVPB SCH (11:59)
[2017-05-10] MEDS ORDERED: POTASSIUM CHLORIDE (SR) 20 MEQ TAB PO STA (12:56)
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
--- NOTE | 2017-05-10 13:46 | CONS ---
Date/Time of Note Date/Time of Note DATE: 05/10/17 TIME: 13:44 Assessment/Plan Assessment/Plan Chief Complaint/Hosp Course SUBJECTIVE: Alert, feels better, no fevers MICROBIOLOGY: Blood culture and urine culture on admission grew Staphylococcus aureus, oxacillin sensitive. Cerebrospinal fluid cultures came back negative. Influenza swab also negative. ANTIMICROBIALS: 1. Levaquin. 2. Rocephin. 3. Vanco PHYSICAL EXAMINATION: GENERAL: This is a well-developed, elderly man who is alert, in no distress. HEENT: Head atraumatic, normocephalic. Sclerae anicteric. Buccal mucosa pink. NECK: Supple, trachea midline. CHEST: Rise symmetrical. Breath sounds clear, diminished to bases. HEART: S1, S2. ABDOMEN: Soft, bowel sounds present. EXTREMITIES: Without cyanosis. ASSESSMENT: 1. Sepsis, resolving. 2. Oxacillin-sensitive Staphylococcus aureus urinary tract infection with bacteremia. 3. L foot cellulitis 4. Viral meningitis. 5. Pneumonia ==> s/p repeat CT==> pulmonary rec-s noted PLAN: Clinically stable, will order MRI of left foot to r/o OM, continue abx, f/ u pulmonary rec-s [facility] staff Problems: Consultation Date/Type/Reason Admit Date/Time May 01, 2017 at 10:16 Initial Consult Date 05/04/17 Type of Consultation: id Referring Provider: DEV MARQUES [employer] CONSULTANT Exam/Review of Systems Vital Signs Vitals Vital Signs Date Time Temp Pulse Resp B/P Pulse Ox O2 Delivery O2 Flow Rate FiO2 05/10/17 07:53 98.0 74 20 151/76 94 05/08/17 23:19 Room Air Intake and Output 05/09/17 05/09/17 05/10/17 15:00 23:00 07:00 Intake Total 900 ml 1210 ml Balance 900 ml 1210 ml Results Result Diagram: 05/10/17 0450 05/10/17 0450 Results 24 hrs Laboratory Tests Test 05/09/17 17:11 05/09/17 20:25 05/09/17 21:48 05/10/17 04:50 Bedside Glucose 130 171 136 White Blood Count 7.7 Red Blood Count 3.84 L Hemoglobin 11.5 L Hematocrit 34.1 L Mean Corpuscular Volume 88.8 Mean Corpuscular Hemoglobin 29.9 Mean Corpuscular Hemoglobin Concent 33.7 Red Cell Distribution Width 14.0 Platelet Count 220 Mean Platelet Volume 9.7 Neutrophils % 65.1 Lymphocytes % 20.8 Monocytes % 9.6 Eosinophils % 3.1 Basophils % 0.4 Nucleated Red Blood Cells % 0.0 Neutrophils # 5.0 Lymphocytes # 1.6 Monocytes # 0.7 Eosinophils # 0.2 Basophils # 0.0 Nucleated Red Blood Cells # 0.0 Sodium Level 142 Potassium Level 3.4 L Chloride Level 106 Carbon Dioxide Level 29 Anion Gap 10 Blood Urea Nitrogen 8 Creatinine 0.85 Glucose Level 75 Calcium Level 8.3 L Test 05/10/17 07:56 05/10/17 11:57 Bedside Glucose 116 164 Medications Medications Current Medications Hydralazine HCl (Apresoline) 10 mg Q6H PRN IV SBP>160; Start 05/01/17 at 12:00 Ondansetron HCl (Zofran Inj) 4 mg Q6H PRN IV NAUSEA AND/OR VOMITING; Start 05/01 at 12:00 Acetaminophen/ Hydrocodone Bitart ([place] (5/325)) 1 tab Q6H PRN PO PAIN LEVEL 4 -6 Last administered on 05/09/17 15:06; Admin Dose 1 TAB; Start 05/01/17 at 12: 00 Famotidine (Pepcid) 20 mg Q12 PO Last administered on 05/10/17 07:58; Admin Dose 20 MG; Start 05/01/17 at 21:00 Insulin Glargine (Lantus) 14 unit DAILY@20 SC Last administered on 05/09/17 22 :03; Admin Dose 14 UNIT; Start 05/01/17 at 20:00 Diagnostic Test (Pha) (Accu-Chek) 1 ea 02 XX ; Start 05/02/17 at 02:00 Losartan Potassium (Cozaar) 50 mg DAILY PO Last administered on 05/10/17 07:58 ; Admin Dose 50 MG; Start 05/02/17 at 09:00 Atorvastatin Calcium (Lipitor) 10 mg HS PO Last administered on 05/09/17 20:26 ; Admin Dose 10 MG; Start 05/01/17 at 21:00 Amlodipine Besylate (Norvasc) 10 mg DAILY PO Last administered on 05/10/17 07: 57; Admin Dose 10 MG; Start 05/02/17 at 09:00 Miscellaneous Information 1 ea NOTE XX ; Start 05/01/17 at 13:00 Glucose (Glutose) 15 gm Q15M PRN PO DECREASED GLUCOSE; Start 05/01/17 at 13:00 Glucose (Glutose) 22.5 gm Q15M PRN PO DECREASED GLUCOSE; Start 05/01/17 at 13:00 Dextrose (D50w Syringe) 25 ml Q15M PRN IV DECREASED GLUCOSE; Start 05/01/17 at 13:00 Dextrose (D50w Syringe) 50 ml Q15M PRN IV DECREASED GLUCOSE; Start 05/01/17 at 13:00 Glucagon (Glucagen) 1 mg Q15M PRN IM DECREASED GLUCOSE; Start 05/01/17 at 13:00 Glucose (Glutose) 15 gm Q15M PRN BUCCAL DECREASED GLUCOSE; Start 05/01/17 at 13: 00 Acetaminophen (Tylenol Tab) 650 mg Q6H PRN PO PAIN AND OR ELEVATED TEMP Last administered on 05/07/17 13:43; Admin Dose 650 MG; Start 05/01/17 at 21:00 Morphine Sulfate (morphine) 3 mg Q3H PRN IV SEVERE PAIN LEVEL 7-10 Last administered on 05/06/17 21:53; Admin Dose 3 MG; Start 05/02/17 at 13:00 Zolpidem Tartrate (Ambien) 5 mg HS PRN PO INSOMNIA Last administered on 20:38; Admin Dose 5 MG; Start 05/02/17 at 18:00 Docusate Sodium (Colace) 100 mg BID PO Last administered on 05/10/17 07:58; Admin Dose 100 MG; Start 05/03/17 at 11:00 Senna (Senokot) 1 tab BID PO Last administered on 05/10/17 07:58; Admin Dose 1 TAB; Start 05/03/17 at 11:00 Levofloxacin 500 mg 500 mg DAILY@06 PO Last administered on 05/10/17 05:41; Admin Dose 500 MG; Start 05/05/17 at 06:00 Ceftriaxone Sodium (Rocephin) 50 ml @ 100 mls/hr Q24H IVPB Last administered on 05/10/17 11:59; Admin Dose 100 MLS/HR; Start 05/05/17 at 13:00 Furosemide (Lasix) 40 mg DAILY IV Last administered on 05/10/17 07:57; Admin Dose 40 MG; Start 05/06/17 at 11:00 Ketorolac Tromethamine 30 mg 30 mg Q6H PRN IV PAIN Last administered on 05:44; Admin Dose 30 MG; Start 05/07/17 at 17:00; Stop 05/10/17 at 16:59 Vancomycin HCl/ Sodium Chloride (Vancocin/NS) 250 ml @ 83.333 mls/ hr Q12H IVPB ; Start 05/10/17 at 16:00 MEMO AYON NP May 10, 2017 13:46
[2017-05-10 15:31] LABS: INR 1.1; PROTIME 14.2 Sec (12.2-14.2); PT RATIO 1.1
[2017-05-10 15:32] LABS: PARTIAL THROMBOPLASTIN TIME 32.5 Sec (25.0-35.0)
[2017-05-10] MEDS: HYDROCODONE/APAP (5/325) TAB PO PRN (16:22)
[2017-05-10 16:54] LABS: THROMBIN TIME 17.4 SEC (13.8-19.1)
--- NOTE | 2017-05-10 17:34 | PN ---
Date/Time of Note Date/Time of Note DATE: 05/10/17 TIME: 17:29 Assessment/Plan VTE Prophylaxis VTE Prophylaxis Intervention: SCD's Lines/Catheters IV [facility]from [facility] [place] [facility] Urinary Cath still in place: No Assessment/Plan Assessment/Plan 1. Sepsis, resolving. 2. Oxacillin-sensitive Staphylococcus aureus urinary tract infection with bacteremia. 3. L foot cellulitis , rule out osteomyelitis 4. Viral meningitis.lumbar puncture work up negative 5. Pneumonia ==>CT pulmonary angiogram showed no evidence of pulmonary emboli small left effusion wedge-shaped infarct right upper lobe- plan for CT guided biopsy by pulmonary 6. Insulin dependant DM Plan: Continue Brandy bx ceftriaxone and vancomycin , ID following, MRI Left foot to rule out OM S/p pulmonary follow up , plan for CT guided biopsy of Right lung mass Wound care Pain control lantus, novolog for DM control SCD for DVT prophylaxis Subjective 24 Hr Interval Summary Free Text/Dictation K replaced today, S/p CT chest review by pulmonary, plan for CT guided bx, MRI left foot Exam/Review of Systems Vital Signs Vitals Vital Signs Date Time Temp Pulse Resp B/P Pulse Ox O2 Delivery O2 Flow Rate FiO2 05/10/17 07:53 98.0 74 20 151/76 94 05/08/17 23:19 Room Air Intake and Output 05/09/17 05/09/17 05/10/17 15:00 23:00 07:00 Intake Total 900 ml 1210 ml Balance 900 ml 1210 ml Exam GENERAL: This is a well-developed, elderly man who is alert, in no distress. HEENT: Head atraumatic, normocephalic. Sclerae anicteric. Buccal mucosa pink. NECK: Supple, trachea midline. CHEST: Rise symmetrical. Breath sounds clear, diminished to bases. HEART: S1, S2. ABDOMEN: Soft, bowel sounds present. EXTREMITIES: Without cyanosis. Results Result Diagram: 05/10/17 1436 05/10/17 0450 Results 24 hrs Laboratory Tests Test 05/09/17 20:25 05/09/17 21:48 05/10/17 04:50 05/10/17 07:56 Bedside Glucose 171 136 116 White Blood Count 7.7 Red Blood Count 3.84 L Hemoglobin 11.5 L Hematocrit 34.1 L Mean Corpuscular Volume 88.8 Mean Corpuscular Hemoglobin 29.9 Mean Corpuscular Hemoglobin Concent 33.7 Red Cell Distribution Width 14.0 Platelet Count 220 Mean Platelet Volume 9.7 Neutrophils % 65.1 Lymphocytes % 20.8 Monocytes % 9.6 Eosinophils % 3.1 Basophils % 0.4 Nucleated Red Blood Cells % 0.0 Neutrophils # 5.0 Lymphocytes # 1.6 Monocytes # 0.7 Eosinophils # 0.2 Basophils # 0.0 Nucleated Red Blood Cells # 0.0 Sodium Level 142 Potassium Level 3.4 L Chloride Level 106 Carbon Dioxide Level 29 Anion Gap 10 Blood Urea Nitrogen 8 Creatinine 0.85 Glucose Level 75 Calcium Level 8.3 L Test 05/10/17 11:57 05/10/17 14:36 05/10/17 17:13 Bedside Glucose 164 96 Platelet Count 261 Prothrombin Time 14.2 Prothrombin Time Ratio 1.1 INR International Normalized Ratio 1.10 Activated Partial Thromboplast Time 32.5 Thrombin Time 17.4 Medications Medications Current Medications Hydralazine HCl (Apresoline) 10 mg Q6H PRN IV SBP>160; Start 05/01/17 at 12:00 Ondansetron HCl (Zofran Inj) 4 mg Q6H PRN IV NAUSEA AND/OR VOMITING; Start 05/01 at 12:00 Acetaminophen/ Hydrocodone Bitart ([place] (5/325)) 1 tab Q6H PRN PO PAIN LEVEL 4 -6 Last administered on 05/10/17 16:22; Admin Dose 1 TAB; Start 05/01/17 at 12: 00 Famotidine (Pepcid) 20 mg Q12 PO Last administered on 05/10/17 07:58; Admin Dose 20 MG; Start 05/01/17 at 21:00 Insulin Glargine (Lantus) 14 unit DAILY@20 SC Last administered on 05/09/17 22 :03; Admin Dose 14 UNIT; Start 05/01/17 at 20:00 Diagnostic Test (Pha) (Accu-Chek) 1 ea 02 XX ; Start 05/02/17 at 02:00 Losartan Potassium (Cozaar) 50 mg DAILY PO Last administered on 05/10/17 07:58 ; Admin Dose 50 MG; Start 05/02/17 at 09:00 Atorvastatin Calcium (Lipitor) 10 mg HS PO Last administered on 05/09/17 20:26 ; Admin Dose 10 MG; Start 05/01/17 at 21:00 Amlodipine Besylate (Norvasc) 10 mg DAILY PO Last administered on 05/10/17 07: 57; Admin Dose 10 MG; Start 05/02/17 at 09:00 Miscellaneous Information 1 ea NOTE XX ; Start 05/01/17 at 13:00 Glucose (Glutose) 15 gm Q15M PRN PO DECREASED GLUCOSE; Start 05/01/17 at 13:00 Glucose (Glutose) 22.5 gm Q15M PRN PO DECREASED GLUCOSE; Start 05/01/17 at 13:00 Dextrose (D50w Syringe) 25 ml Q15M PRN IV DECREASED GLUCOSE; Start 05/01/17 at 13:00 Dextrose (D50w Syringe) 50 ml Q15M PRN IV DECREASED GLUCOSE; Start 05/01/17 at 13:00 Glucagon (Glucagen) 1 mg Q15M PRN IM DECREASED GLUCOSE; Start 05/01/17 at 13:00 Glucose (Glutose) 15 gm Q15M PRN BUCCAL DECREASED GLUCOSE; Start 05/01/17 at 13: 00 Acetaminophen (Tylenol Tab) 650 mg Q6H PRN PO PAIN AND OR ELEVATED TEMP Last administered on 05/07/17 13:43; Admin Dose 650 MG; Start 05/01/17 at 21:00 Morphine Sulfate (morphine) 3 mg Q3H PRN IV SEVERE PAIN LEVEL 7-10 Last administered on 05/06/17 21:53; Admin Dose 3 MG; Start 05/02/17 at 13:00 Zolpidem Tartrate (Ambien) 5 mg HS PRN PO INSOMNIA Last administered on 20:38; Admin Dose 5 MG; Start 05/02/17 at 18:00 Docusate Sodium (Colace) 100 mg BID PO Last administered on 05/10/17 07:58; Admin Dose 100 MG; Start 05/03/17 at 11:00 Senna (Senokot) 1 tab BID PO Last administered on 05/10/17 07:58; Admin Dose 1 TAB; Start 05/03/17 at 11:00 Levofloxacin 500 mg 500 mg DAILY@06 PO Last administered on 05/10/17 05:41; Admin Dose 500 MG; Start 05/05/17 at 06:00 Ceftriaxone Sodium (Rocephin) 50 ml @ 100 mls/hr Q24H IVPB Last administered on 05/10/17 11:59; Admin Dose 100 MLS/HR; Start 05/05/17 at 13:00 Furosemide 40 mg 40 mg DAILY IV Last administered on 05/10/17 07:57; Admin Dose 40 MG; Start 05/06/17 at 11:00 Vancomycin HCl/ Sodium Chloride (Vancocin/NS) 250 ml @ 83.333 mls/ hr Q12H IVPB Last administered on 05/10/17 16:24; Admin Dose 83.333 MLS/HR; Start 11/14 at 16:00 MYKE VEGA MD May 10, 2017 17:34
[2017-05-10 19:33] VITALS: BP 147/80; RESP 20
--- NOTE | 2017-05-10 21:08 | RADRPT ---
PROCEDURE: MRI OF THE LEFT FOOT. CLINICAL INDICATION: Osteomyelitis. TECHNIQUE: Multiple MRI images of the left foot were obtained in multiple planes utilizing multipl e pulse sequences. Images were interpreted on the high-resolution PACS system. COMPARISON: None. FINDINGS: There is no evidence for bone marrow edema or bone destructive change to suggest osteomyelitis. No evidence for fracture, subluxation or dislocation. There is moderate degenerative change of the fir st metatarsal phalangeal joint versus the possibility of gout. There is soft tissue edema within th e deep musculature of the forefoot. Fluid surrounds the extensor tendons to the second and third di gits at the level of the metatarsals. Findings are nonspecific and likely represent tenosynovitis. No soft tissue air is identified. No soft tissue mass lesion identified. IMPRESSION: 1. No evidence for osteomyelitis. 2. Findings most likely representing tenosynovitis of the second and third extensor tendons. These findings can be seen with post-traumatic tenosynovitis or inflammatory arthritis including crystal deposition disease. I cannot exclude septic tenosynovitis although on the basis of MRI findings allen ne but this possibility is felt to be less likely. 3. Moderate degenerative change of the first metatarsal phalangeal joint with the possibility of samano perimposed gout. RPTAT: XX .Flo Randall MD, MD Date Time Electronically viewed and signed by .Flo Randall MD, on 05/10/2017 21:07 .T/
[2017-05-10] MEDS: INSULIN GLARGINE [LANtus] 3 ML PEN SC SCH (21:33)
[2017-05-10] MEDS: ATORVASTATIN 10 MG TAB PO SCH (21:35)
[2017-05-10] MEDS: ACETAMINOPHEN 325 MG TAB PO PRN (22:58)
[2017-05-11] MEDS: ACCU-CHEK XX SCH (02:00)
[2017-05-11] MEDS: VANCOMYCIN 1.5 GM in SOD CHLORIDE 0.9% 250 ML IVPB SCH (04:19)
[2017-05-11] MEDS: HYDROCODONE/APAP (5/325) TAB PO PRN (04:48)
[2017-05-11] MEDS: LEVOFLOXACIN 500 MG TAB PO SCH (04:48)
[2017-05-11] MEDS: KETOROLAC 30 MG INJ IV PRN ×2 (05:09→17:02)
[2017-05-11 05:45] LABS: ADD SCAN DIFF NO
[2017-05-11 05:54] LABS: BASOPHILS % 0.4 % (0.0-2.0); EOSINOPHILS # 0.2 10^3/ul (0.0-0.5); EOSINOPHILS % 2.7 % (0.0-7.0); HEMATOCRIT 35.7 % (42.0-52.0); LYMPHOCYTES # 1.7 10^3/ul (0.8-2.9); LYMPHOCYTES % 20.7 % (15.0-51.0); MEAN CORPUSCULAR HEMOGLOBIN 30.1 pg (29.0-33.0); MEAN CORPUSCULAR HGB CONC 33.6 g/dl (32.0-37.0); MEAN CORPUSCULAR VOLUME 89.5 fl (82.0-101.0); MEAN PLATELET VOLUME 9.9 fl (7.4-10.4); MONOCYTE # 0.7 10^3/ul (0.3-0.9); MONOCYTES % 8.8 % (0.0-11.0); NEUTROPHIL # 5.4 10^3/ul (1.6-7.5); NEUTROPHILS % 66.5 % (39.0-77.0); PLATELET COUNT 252 10^3/UL (140-415); RED BLOOD COUNT 3.99 10^6/ul (4.70-6.10); RED CELL DISTRIBUTION WIDTH 14.2 % (11.5-14.5); WHITE BLOOD COUNT 8.2 10^3/ul (4.8-10.8)
[2017-05-11 06:15] LABS: INR 1.13; PROTIME 14.5 Sec (12.2-14.2); PT RATIO 1.1
[2017-05-11 06:16] LABS: PARTIAL THROMBOPLASTIN TIME 35.7 Sec (25.0-35.0)
[2017-05-11 06:44] LABS: CALCIUM 8.6 mg/dl (8.4-10.2); CREATININE 0.79 mg/dl (0.61-1.24); POTASSIUM 3.6 mmol/L (3.5-5.1)
[2017-05-11] MEDS: INSULIN ASPART [NOVOLOG] 3 ML PEN SC SCH ×4 (08:15→12:34)
[2017-05-11] MEDS: FAMOTIDINE 20 MG TAB PO SCH (08:23)
[2017-05-11] MEDS: LOSARTAN 50 MG TAB PO SCH (08:23)
[2017-05-11] MEDS: DOCUSATE SODIUM 100 MG CAP PO SCH (08:23)
[2017-05-11] MEDS: SENNA TAB PO SCH (08:23)
[2017-05-11] MEDS: FUROSEMIDE 40 MG INJ IV SCH (08:23)
[2017-05-11] MEDS: AMLODIPINE 10 MG TAB PO SCH (08:23)
[2017-05-11 08:32] VITALS: BP 160/79; RESP 16
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
[2017-05-11] MEDS: CEFTRIAXONE 1 GM/50 ML (PMX) 50 ML IVPB SCH (12:12)
--- NOTE | 2017-05-11 12:44 | PDOCDIS ---
Discharge Instructions CONDITION Patient Condition: Good HOME CARE INSTRUCTIONS: Special Diet: 1800 ada diet ACTIVITY: Activity Restrictions: Slowly Increase Activity Rest between Activity Avoid heavy lifting Avoid Heavy Housework FOLLOW UP/APPOINTMENTS Appointments follow up with his own PMD through HMO insurance in 1-2 week . follow up with pulmonary in 3-4 week after discharge( pt will need referral from his PMD to see pulmonary physician) MYKE VEGA MD May 11, 2017 12:44
[2017-05-11] MEDS ORDERED: LEVO500T10 PO (12:47)
[2017-05-11] MEDS ORDERED: HYDR-906 PO (12:47)
--- NOTE | 2017-05-11 13:14 | CONS ---
Date/Time of Note Date/Time of Note DATE: 05/11/17 TIME: 13:12 Assessment/Plan Assessment/Plan Chief Complaint/Hosp Course SUBJECTIVE: Alert, feels better, no fevers MICROBIOLOGY: Blood culture and urine culture on admission grew Staphylococcus aureus, oxacillin sensitive. Cerebrospinal fluid cultures came back negative. Influenza swab also negative. ANTIMICROBIALS: 1. Levaquin. 2. Rocephin. 3. Vanco PHYSICAL EXAMINATION: GENERAL: This is a well-developed, elderly man who is alert, in no distress. HEENT: Head atraumatic, normocephalic. Sclerae anicteric. Buccal mucosa pink. NECK: Supple, trachea midline. CHEST: Rise symmetrical. Breath sounds clear, diminished to bases. HEART: S1, S2. ABDOMEN: Soft, bowel sounds present. EXTREMITIES: Without cyanosis. ASSESSMENT: 1. Sepsis, resolving. 2. Oxacillin-sensitive Staphylococcus aureus urinary tract infection with bacteremia. 3. L foot cellulitis===> no OM per MRI ?tenosynovitis 4. Viral meningitis. 5. Pneumonia ==> s/p repeat CT==> pulmonary rec-s noted PLAN: Clinically stable, cleared for dc per pulmonary, anticipate dc on oral Levaquin and Bactrim, f/u with podiatry if no improvement [facility] staff/pt/family Problems: Consultation Date/Type/Reason Admit Date/Time May 01, 2017 at 10:16 Initial Consult Date 05/04/17 Type of Consultation: ID Referring Provider: DEV [employer] Exam/Review of Systems Vital Signs Vitals Vital Signs Date Time Temp Pulse Resp B/P Pulse Ox O2 Delivery O2 Flow Rate FiO2 05/11/17 08:32 98.1 73 16 160/79 93 05/08/17 23:19 Room Air Intake and Output 05/10/17 05/10/17 05/11/17 15:00 23:00 07:00 Intake Total 1420 ml 250 ml Output Total 1600 ml Balance -180 ml 250 ml Results Result Diagram: 05/11/17 0510 05/11/17 0510 Results 24 hrs Laboratory Tests Test 05/10/17 14:36 05/10/17 17:13 05/10/17 21:25 05/11/17 05:10 Platelet Count 261 252 Prothrombin Time 14.2 14.5 H Prothrombin Time Ratio 1.1 1.1 INR International Normalized Ratio 1.10 1.13 Activated Partial Thromboplast Time 32.5 35.7 H Thrombin Time 17.4 Bedside Glucose 96 148 White Blood Count 8.2 Red Blood Count 3.99 L Hemoglobin 12.0 L Hematocrit 35.7 L Mean Corpuscular Volume 89.5 Mean Corpuscular Hemoglobin 30.1 Mean Corpuscular Hemoglobin Concent 33.6 Red Cell Distribution Width 14.2 Mean Platelet Volume 9.9 Neutrophils % 66.5 Lymphocytes % 20.7 Monocytes % 8.8 Eosinophils % 2.7 Basophils % 0.4 Nucleated Red Blood Cells % 0.0 Neutrophils # 5.4 Lymphocytes # 1.7 Monocytes # 0.7 Eosinophils # 0.2 Basophils # 0.0 Nucleated Red Blood Cells # 0.0 Sodium Level 141 Potassium Level 3.6 Chloride Level 105 Carbon Dioxide Level 27 Anion Gap 13 Blood Urea Nitrogen 8 Creatinine 0.79 Glucose Level 92 Calcium Level 8.6 Test 05/11/17 08:20 05/11/17 12:11 Bedside Glucose 111 201 Medications Medications Current Medications Hydralazine HCl (Apresoline) 10 mg Q6H PRN IV SBP>160; Start 05/01/17 at 12:00 Ondansetron HCl (Zofran Inj) 4 mg Q6H PRN IV NAUSEA AND/OR VOMITING; Start 05/01 at 12:00 Acetaminophen/ Hydrocodone Bitart ([place] (5/325)) 1 tab Q6H PRN PO PAIN LEVEL 4 -6 Last administered on 05/11/17 04:48; Admin Dose 1 TAB; Start 05/01/17 at 12: 00 Famotidine (Pepcid) 20 mg Q12 PO Last administered on 05/11/17 08:23; Admin Dose 20 MG; Start 05/01/17 at 21:00 Insulin Glargine (Lantus) 14 unit DAILY@20 SC Last administered on 05/10/17 21 :33; Admin Dose 14 UNIT; Start 05/01/17 at 20:00 Diagnostic Test (Pha) (Accu-Chek) 1 ea 02 XX ; Start 05/02/17 at 02:00 Losartan Potassium (Cozaar) 50 mg DAILY PO Last administered on 05/11/17 08:23 ; Admin Dose 50 MG; Start 05/02/17 at 09:00 Atorvastatin Calcium (Lipitor) 10 mg HS PO Last administered on 05/10/17 21:35 ; Admin Dose 10 MG; Start 05/01/17 at 21:00 Amlodipine Besylate (Norvasc) 10 mg DAILY PO Last administered on 05/11/17 08: 23; Admin Dose 10 MG; Start 05/02/17 at 09:00 Miscellaneous Information 1 ea NOTE XX ; Start 05/01/17 at 13:00 Glucose (Glutose) 15 gm Q15M PRN PO DECREASED GLUCOSE; Start 05/01/17 at 13:00 Glucose (Glutose) 22.5 gm Q15M PRN PO DECREASED GLUCOSE; Start 05/01/17 at 13:00 Dextrose (D50w Syringe) 25 ml Q15M PRN IV DECREASED GLUCOSE; Start 05/01/17 at 13:00 Dextrose (D50w Syringe) 50 ml Q15M PRN IV DECREASED GLUCOSE; Start 05/01/17 at 13:00 Glucagon (Glucagen) 1 mg Q15M PRN IM DECREASED GLUCOSE; Start 05/01/17 at 13:00 Glucose (Glutose) 15 gm Q15M PRN BUCCAL DECREASED GLUCOSE; Start 05/01/17 at 13: 00 Acetaminophen (Tylenol Tab) 650 mg Q6H PRN PO PAIN AND OR ELEVATED TEMP Last administered on 05/10/17 22:58; Admin Dose 650 MG; Start 05/01/17 at 21:00 Morphine Sulfate (morphine) 3 mg Q3H PRN IV SEVERE PAIN LEVEL 7-10 Last administered on 05/06/17 21:53; Admin Dose 3 MG; Start 05/02/17 at 13:00 Zolpidem Tartrate (Ambien) 5 mg HS PRN PO INSOMNIA Last administered on 20:38; Admin Dose 5 MG; Start 05/02/17 at 18:00 Docusate Sodium (Colace) 100 mg BID PO Last administered on 05/11/17 08:23; Admin Dose 100 MG; Start 05/03/17 at 11:00 Senna (Senokot) 1 tab BID PO Last administered on 05/11/17 08:23; Admin Dose 1 TAB; Start 05/03/17 at 11:00 Levofloxacin 500 mg 500 mg DAILY@06 PO Last administered on 05/11/17 04:48; Admin Dose 500 MG; Start 05/05/17 at 06:00 Ceftriaxone Sodium (Rocephin) 50 ml @ 100 mls/hr Q24H IVPB Last administered on 05/11/17 12:12; Admin Dose 100 MLS/HR; Start 05/05/17 at 13:00 Furosemide 40 mg 40 mg DAILY IV Last administered on 05/11/17 08:23; Admin Dose 40 MG; Start 05/06/17 at 11:00 Vancomycin HCl/ Sodium Chloride (Vancocin/NS) 250 ml @ 83.333 mls/ hr Q12H IVPB Last administered on 05/11/17 04:19; Admin Dose 83.333 MLS/HR; Start 11/14 at 16:00 Ketorolac Tromethamine (Toradol) 30 mg Q6H PRN IV PAIN Last administered on 05:09; Admin Dose 30 MG; Start 05/11/17 at 05:00; Stop 05/14/17 at 04:59 Miscellaneous Information (*Rx Drug Level Order Reminder*) VANCO TROUGH @ 0, 300 ON... ONCE ONCE XX ; Start 05/12/17 at 03:00; Stop 05/12/17 at 03:01 MEMO AYON NP May 11, 2017 13:14
--- NOTE | 2017-05-21 02:43 | DS ---
DATE OF ADMISSION: 05/01/2017 DATE OF DISCHARGE: 05/11/2017 FINAL DISCHARGE DIAGNOSES 1. Sepsis. 2. Oxacillin sensitive Staphylococcus aureus urinary tract infection with bacteremia. 3. Left foot cellulitis. 4. Viral meningitis. The workup has been negative. Lumbar puncture is negative. 5. Pneumonia. No evidence of any pulmonary embolism. 6. Insulin-dependent diabetes mellitus. CONSULTATIONS DONE DURING THIS HOSPITALIZATION: 1. Infectious disease consult, Dr. Dickson. 2. Pulmonary consult, Dr. Tsai. HOSPITAL COURSE: This is a 66-year-old male with a past medical history of insulin-dependent diabet es mellitus, history of high blood pressure, history of hyperlipidemia who presented with the compla int of back pain. The patient got admitted for sepsis. He had GERMÁN bacteremia and also had GERMÁN ce llulitis. The patient was treated with IV antibiotics. He was constantly complaining of the chest pain and shortness of breath for which he had a CT for pulmonary embolism which shows no evidence of pulmonary embolisms but that was suspicious for some infiltrate versus mass and a pulmonary consult ation was done. Initially the plan was to do a CT-guided biopsy but after having a discussion with radiology and pulmonary, the plan is to treat the patient with the p.o. antibiotics for his pneumoni a and have outpatient CT scan after finishing the course of antibiotics and followup on that infiltr ates and to decide for further plan. He was given an appointment by Dr. Tsai in the clinic. DISPOSITION: To home. DISCHARGE CONDITION: Stable and improved compared to admission. DISCHARGE ACTIVITIES: As tolerated, slowly resume to the normal baseline activity. DISCHARGE DIET: Low fat, low sodium diet. DISCHARGE MEDICATIONS: As per medical reconciliation. DISCHARGE FOLLOWUP INSTRUCTIONS: 1. The patient is to follow up with his own primary care doctor in 1 to 2 weeks after discharge. 2. The patient is to follow up with pulmonary, Dr. Herman Tsai, in 1 to 2 weeks after discharge. He has been explained about the discharge plan and followup instructions. He understood and verbali zed understanding. Dictated By: MYKE VEGA MD, KP/MEETA Conf#: [id number] DID#: [id number]
== END 2017-05-11 17:30 | disposition home or self-care (01) | DRG 871 ==
LOC: E/R 08:10 → MS4 10:16 → TEL 20:14 → MS2 05-08 23:12
PROVIDERS: ADMIT Family Medicine; ATTEND Family Medicine
PROC: 009U3ZX Drainage of Spinal Canal, Percutaneous Approach, Diagnostic (ICD-10-PCS; principal; 2017-05-01)
DX: A41.9 Sepsis, unspecified organism (principal); J18.9 Pneumonia, unspecified organism; E87.2 Acidosis; A87.9 Viral meningitis, unspecified; N39.0 Urinary tract infection, site not specified; L03.116 Cellulitis of left lower limb; E11.9 Type 2 diabetes mellitus without complications; G31.9 Degenerative disease of nervous system, unspecified; I10 Essential (primary) hypertension; E78.5 Hyperlipidemia, unspecified; R74.0 Nonspecific elevation of levels of transaminase and lactic acid dehydrogenase [LDH]; B95.61 Methicillin susceptible Staphylococcus aureus infection as the cause of diseases classified elsewhere; E87.6 Hypokalemia; Z79.4 Long term (current) use of insulin; R76.8 Other specified abnormal immunological findings in serum
CPT/HCPCS: 36415; 70551; 71010; 71250; 71275; 73721; 74176; 76705; 80048; 80053; 80061; 80202; 81001; 82550; 82553; 82945; 82962; 83036; 83605; 83690; 83735; 84100; 84153; 84154; 84157; 84439; 84443; 84484; 84560; 85025; 85049; 85610; 85651; 85670; 85730; 86140; 86592; 86706; 86708; 86709; 86788; 86789; 86803; 87040; 87070; 87086; 87340; 87400; 89050; 93005; 93971; 96374; 96375; J0133; J0360; J0692; J0696; J1170; J1815; J1885; J1940; J2270; J2543; J3370; J7030; J7050; Q9967

== ENCOUNTER → 2017-06-04 | Outpatient (CLI) | payer SELFPAY ==
[~2017-06-04] MED LIST changes: +AMLO-147 PO; +ASPI-535 PO; +ATOR10TA65 PO; +BENA40TA41 PO; +EMPA10TA PO; +GABA300C16 PO; +GLIM2TAB PO; +HYD25 PO; +LEVO500T10 PO; +LOSA50TA6 PO; +SITA1TBM7 PO
== END | disposition home or self-care (01) ==
LOC: DIB 13:11
PROVIDERS: ATTEND Family Medicine
DX: Z02.9 Encounter for administrative examinations, unspecified (principal)

== ENCOUNTER 2018-05-27 08:49 | Emergency (ER) | END 2018-05-27 13:28 | disposition home or self-care (01) ==